=== PATIENT | female | born 1965 | race Two or more races ===

== ENCOUNTER 2020-07-25 09:03 | Outpatient (REF) | payer OTHER, SELFPAY | END 2020-07-25 09:04 | disposition home or self-care (01) | LOC: HO.LAB 09:03 | PROVIDERS: Visit Provider Internal Medicine | DX: Z20.822 Contact with and (suspected) exposure to COVID-19 (principal) | CPT/HCPCS: 36415; C9803; U0003 ==

== ENCOUNTER 2020-08-10 12:53 | Outpatient (REF) | payer OTHER, SELFPAY | END 2020-08-10 12:54 | disposition home or self-care (01) | LOC: HO.LAB 12:53 | PROVIDERS: PCP Internal Medicine; Visit Provider Internal Medicine | DX: Z20.822 Contact with and (suspected) exposure to COVID-19 (principal) | CPT/HCPCS: 36415; C9803; U0003 ==

== ENCOUNTER 2020-08-22 14:26 | Outpatient (REF) | payer OTHER, SELFPAY ==
[2020-08-25 17:07] LABS: HPV mRNA E6/E7 rflx Not Detected (Not Detected)
== END 2020-08-22 14:27 | disposition home or self-care (01) ==
LOC: HO.LAB 14:26
PROVIDERS: PCP Internal Medicine; Visit Provider Obstetrics & Gynecology
DX: Z01.419 Encounter for gynecological examination (general) (routine) without abnormal findings (principal); Z11.51 Encounter for screening for human papillomavirus (HPV)
CPT/HCPCS: 36415; 87624; 88142

== ENCOUNTER 2021-02-14 12:25 | Outpatient (REF) | payer OTHER, SELFPAY ==
--- NOTE | ~2021-02-14 | MM_ITS ---
EXAMINATION: MM SCREENING DIGITAL BREAST TOMOSYNTHESIS, BILATERAL CLINICAL INFORMATION: Screening. Asymptomatic. The lifetime risk of breast cancer based on the Tyrer-Cuzick Model is 5%. COMPARISON: Mammography: 01/14/2020, 05/05/2018, 11/13/2016 TECHNIQUE: Digital breast tomosynthesis is performed in both the craniocaudal and mediolateral oblique views along with computer-aided detection (CAD). Synthesized 2D images are generated from the tomosynthesis. Additional bilateral MLO views are provided. FINDINGS: The breasts are heterogeneously dense, which may obscure small masses (ACR BI-RADS breast composition Category c). There are no significant masses, abnormal calcifications, or other abnormalities. Parenchymal pattern is similar to prior exams. The axilla and skin contours are unremarkable. MM/MM tomosynthesis screening BI IMPRESSION: No mammographic evidence of malignancy. ASSESSMENT: BI-RADS 1: Negative RECOMMENDATION: Routine annual mammography screening. This patient's information was entered into a reminder system with a target due date for their next mammogram.
== END 2021-02-14 12:26 | disposition home or self-care (01) ==
LOC: HO.MAMMO 12:25
PROVIDERS: PCP Internal Medicine; Visit Provider Internal Medicine
DX: Z12.31 Encounter for screening mammogram for malignant neoplasm of breast (principal)
CPT/HCPCS: 77063; 77067

== ENCOUNTER → 2021-08-21 15:34 | Outpatient (REF) | payer OTHER, SELFPAY ==
--- NOTE | ~2021-08-21 | XR_ITS ---
EXAMINATION: XR CHEST CLINICAL INFORMATION: Chest pain COMPARISON: Previous chest x-ray September 2016 TECHNIQUE: Frontal view of the chest was obtained. FINDINGS: No significant abnormality is noted involving the heart, lungs, mediastinum, bony thorax or soft tissues. XR/XR chest 1V IMPRESSION: Unremarkable examination.
--- NOTE | 2021-08-21 15:49 | ECG_ITS ---
Test Reason : chest pain Blood Pressure : / mmHG Vent. Rate : 086 BPM Atrial Rate : 086 BPM P-R Int : 144 ms QRS Dur : 086 ms QT Int : 334 ms P-R-T Axes : 059 007 049 degrees QTc Int : 399 ms Normal sinus rhythm Normal ECG No previous ECGs available Referred By: Charlene Archer Electronically Signed By:KATHY ANGULO
[2021-08-21 16:00] LABS: MANUAL DIFF FLAG NO
[2021-08-21 16:09] LABS: Basophils Percent Auto 0.1 % (0-2); Eosinophils Percent Auto 0.1 % (0-4); Hematocrit 36.5 % (37.0-47.0); Hemoglobin 12.1 g/dl (12.0-16.0); Imm Gran Abs Auto 0.02 X10*3/uL (0.00-0.03); Imm Gran Pct Auto 0.2 % (0.0-0.4); Lymphocytes Absolute Auto 1.5 X10*3/uL (1.2-4.9); Lymphocytes Percent Auto 15.1 % (20-40); Mean Corpuscular HGB Conc 33.2 g/dl (31.0-35.0); Mean Corpuscular Hemoglobin 30.3 pg (27.0-33.0); Mean Corpuscular Volume 91.5 fL (80.0-98.0); Mean Platelet Volume 9.3 fL (9.4-12.3); Monocytes Absolute Auto 0.6 X10*3/uL (0.1-1.2); Monocytes Percent Auto 6.2 % (2-11); Neutrophils Absolute Auto 7.9 x10*3/uL (2.0-8.3); Neutrophils Percent Auto 78.3 % (45-73); Platelet Count 246 X10*3/uL (160-400); Red Blood Count 3.99 X10*6/uL (4.20-5.50); Red Cell Distribution Width 12.4 % (11.0-16.0); White Blood Count 10.1 X10*3/uL (4.8-10.8)
[2021-08-21 16:31] LABS: Troponin-I High Sensitivity < 3.5 ng/L (<3.5-17.0)
[2021-08-21 18:00] LABS: Alanine Aminotransferase 11 U/L (0-31); Alkaline Phosphatase 89 U/L (39-117); Anion Gap 11 (12-20); Aspartate Amino Transferase 14 U/L (5-31); Bilirubin Total 0.7 mg/dL (0.0-1.0); Blood Urea Nitrogen 12 mg/dL (9-16); Calcium 9.4 mg/dL (8.4-10.2); Carbon Dioxide 29 mmol/L (22-29); Chloride 106 mmol/L (96-108); Estimated Glomerular Filt Rate > 60; Glucose Random 91 mg/dL (60-115); Potassium 3.7 mmol/L (3.3-5.1); Sodium 142 mmol/L (135-145); Total Protein 6.9 g/dL (6.5-8.0)
== END ==
LOC: HO.CARD 15:34
PROVIDERS: PCP Internal Medicine; Visit Provider Nurse Practitioner Acute Care
DX: R07.89 Other chest pain (principal)
CPT/HCPCS: 36415; 71045; 80053; 84484; 85025; 93005

== ENCOUNTER 2022-02-21 15:47 | Outpatient (REF) | payer OTHER, SELFPAY ==
--- NOTE | ~2022-02-21 | MM_ITS ---
EXAMINATION: MM SCREENING DIGITAL BREAST TOMOSYNTHESIS, BILATERAL CLINICAL INFORMATION: Screening. Asymptomatic. The lifetime risk of breast cancer based on the Tyrer-Cuzick Model is 6%. COMPARISON: Mammography: 02/14/2021, 01/14/2020, 05/05/2018 TECHNIQUE: Digital breast tomosynthesis is performed in both the craniocaudal and mediolateral oblique views along with computer-aided detection (CAD). Synthesized 2D images are generated from the tomosynthesis. FINDINGS: The breasts are heterogeneously dense, which may obscure small masses (ACR BI-RADS breast composition Category c). There are no significant masses, abnormal calcifications, or other abnormalities. Parenchymal pattern is similar to prior studies. No developing density or interval architectural abnormality. The skin contours are smooth. MM/MM tomosynthesis screening BI IMPRESSION: No mammographic evidence of malignancy. ASSESSMENT: BI-RADS 1: Negative RECOMMENDATION: Routine annual mammography screening. This patient's information was entered into a reminder system with a target due date for their next mammogram.
== END 2022-02-21 15:48 | disposition home or self-care (01) ==
LOC: HO.MAMMO 15:47
PROVIDERS: PCP Internal Medicine; Visit Provider Internal Medicine
DX: Z12.31 Encounter for screening mammogram for malignant neoplasm of breast (principal)
CPT/HCPCS: 77063; 77067

== ENCOUNTER 2022-07-12 14:55 | Outpatient (REF) | payer OTHER, SELFPAY ==
[2022-07-14 04:36] LABS: CT PCR NOT DETECTED (Not Detect.); NG PCR NOT DETECTED (Not Detect.)
== END 2022-07-12 14:56 | disposition home or self-care (01) ==
LOC: HO.LNP 14:55
PROVIDERS: PCP Internal Medicine; Visit Provider Advanced Practice Midwife
DX: Z11.3 Encounter for screening for infections with a predominantly sexual mode of transmission (principal)
CPT/HCPCS: 87491; 87591

== ENCOUNTER 2022-10-02 09:56 | Outpatient (REF) | payer OTHER, SELFPAY ==
--- NOTE | ~2022-10-02 | XR_ITS ---
EXAMINATION: XR LUMBOSACRAL SPINE XR WRIST, RIGHT XR WRIST, LEFT CLINICAL INFORMATION: None. COMPARISON: None available. TECHNIQUE: Three views of the lumbosacral spine. 4 views each hand/wrist. FINDINGS: LUMBAR SPINE: There is normal lumbar lordosis. The vertebral heights, alignment and disc heights are normal. There is no visible acute fracture, dislocation or subluxation seen. Mild ventral spondylosis L3-L4 disc level. The paravertebral soft tissues are normal. LEFT HAND/WRIST: There is loss of PIP and DIP joint space with mild periarticular spurring in DIP joint fifth digit. Moderate periarticular spurring is seen of 1st carpometacarpal joint. No aggressive lytic or sclerotic process seen. The soft tissues are normal. There is negative ulnar variance. RIGHT HAND: There is mild loss of PIP and DIP joint space with mild periarticular spurring. No acute fracture or dislocation seen. The soft tissues are normal. XR/XR hand wrist LT IMPRESSION: Mild degenerative changes PIP and DIP joints both hands and 1st carpometacarpal joint left hand. No visible acute fracture or dislocation seen. Mild degenerative spondylosis L3-L4 disc level. No visible acute fracture or dislocation seen. There is no lytic process.
--- NOTE | ~2022-10-02 | XR_ITS ---
EXAMINATION: XR LUMBOSACRAL SPINE XR WRIST, RIGHT XR WRIST, LEFT CLINICAL INFORMATION: None. COMPARISON: None available. TECHNIQUE: Three views of the lumbosacral spine. 4 views each hand/wrist. FINDINGS: LUMBAR SPINE: There is normal lumbar lordosis. The vertebral heights, alignment and disc heights are normal. There is no visible acute fracture, dislocation or subluxation seen. Mild ventral spondylosis L3-L4 disc level. The paravertebral soft tissues are normal. LEFT HAND/WRIST: There is loss of PIP and DIP joint space with mild periarticular spurring in DIP joint fifth digit. Moderate periarticular spurring is seen of 1st carpometacarpal joint. No aggressive lytic or sclerotic process seen. The soft tissues are normal. There is negative ulnar variance. RIGHT HAND: There is mild loss of PIP and DIP joint space with mild periarticular spurring. No acute fracture or dislocation seen. The soft tissues are normal. XR/XR hand wrist RT IMPRESSION: Mild degenerative changes PIP and DIP joints both hands and 1st carpometacarpal joint left hand. No visible acute fracture or dislocation seen. Mild degenerative spondylosis L3-L4 disc level. No visible acute fracture or dislocation seen. There is no lytic process.
--- NOTE | ~2022-10-02 | XR_ITS ---
EXAMINATION: XR LUMBOSACRAL SPINE XR WRIST, RIGHT XR WRIST, LEFT CLINICAL INFORMATION: None. COMPARISON: None available. TECHNIQUE: Three views of the lumbosacral spine. 4 views each hand/wrist. FINDINGS: LUMBAR SPINE: There is normal lumbar lordosis. The vertebral heights, alignment and disc heights are normal. There is no visible acute fracture, dislocation or subluxation seen. Mild ventral spondylosis L3-L4 disc level. The paravertebral soft tissues are normal. LEFT HAND/WRIST: There is loss of PIP and DIP joint space with mild periarticular spurring in DIP joint fifth digit. Moderate periarticular spurring is seen of 1st carpometacarpal joint. No aggressive lytic or sclerotic process seen. The soft tissues are normal. There is negative ulnar variance. RIGHT HAND: There is mild loss of PIP and DIP joint space with mild periarticular spurring. No acute fracture or dislocation seen. The soft tissues are normal. XR/XR lumbar spine 2-3V IMPRESSION: Mild degenerative changes PIP and DIP joints both hands and 1st carpometacarpal joint left hand. No visible acute fracture or dislocation seen. Mild degenerative spondylosis L3-L4 disc level. No visible acute fracture or dislocation seen. There is no lytic process.
== END 2022-10-02 09:57 | disposition home or self-care (01) ==
LOC: HO.XRAY 09:56
PROVIDERS: PCP Internal Medicine; Visit Provider Internal Medicine
DX: M25.531 Pain in right wrist (principal); M25.532 Pain in left wrist; M47.816 Spondylosis without myelopathy or radiculopathy, lumbar region
CPT/HCPCS: 72100; 73110; 73130

== ENCOUNTER 2022-10-19 08:25 | Outpatient (REF) | payer OTHER, SELFPAY ==
[2022-10-19 08:34] LABS: MANUAL DIFF FLAG NO
[2022-10-19 09:15] LABS: Basophils Percent Auto 0.7 % (0-2); Eosinophils Percent Auto 0.5 % (0-4); Hematocrit 37.2 % (37.0-47.0); Hemoglobin 12.5 g/dl (12.0-16.0); Imm Gran Abs Auto 0.02 X10*3/uL (0.00-0.03); Imm Gran Pct Auto 0.3 % (0.0-0.4); Lymphocytes Absolute Auto 1.4 X10*3/uL (1.2-4.9); Lymphocytes Percent Auto 23.8 % (20-40); Mean Corpuscular HGB Conc 33.6 g/dl (31.0-35.0); Mean Corpuscular Volume 89.4 fL (80.0-98.0); Mean Platelet Volume 9.4 fL (9.4-12.3); Monocytes Absolute Auto 0.4 X10*3/uL (0.1-1.2); Monocytes Percent Auto 6.7 % (2-11); Platelet Count 259 X10*3/uL (160-400); Red Blood Count 4.16 X10*6/uL (4.20-5.50); Red Cell Distribution Width 12.5 % (11.0-16.0); White Blood Count 5.9 X10*3/uL (4.8-10.8)
[2022-10-19 09:45] LABS: Estimated Average Glucose 131 mg/dL; Hemoglobin A1c % 6.2 %
[2022-10-19 10:00] LABS: Alanine Aminotransferase 17 U/L (0-31); Alkaline Phosphatase 91 U/L (39-117); Aspartate Amino Transferase 17 U/L (5-31); Bilirubin Total 0.7 mg/dL (0.0-1.0); Blood Urea Nitrogen 16 mg/dL (9-16); Calcium 9.1 mg/dL (8.4-10.2); Carbon Dioxide 27 mmol/L (22-29); Chloride 107 mmol/L (96-108); Cholesterol 176 mg/dL; Estimated Glomerular Filt Rate > 60; Glucose Random 105 mg/dL (60-115); HDL Cholesterol 37 mg/dL; LDL Cholesterol Calculated 122 mg/dl; Potassium 4.3 mmol/L (3.3-5.1); Sodium 140 mmol/L (135-145); Total Protein 6.7 g/dL (6.5-8.0); Triglycerides 85 mg/dL
[2022-10-19 10:04] LABS: Anion Gap 11 (12-20)
[2022-10-19 10:41] LABS: Folate 7.8 ng/mL (> or = 4.0); Thyroid Stimulating Hormone 0.78 uIU/mL (0.32-4.0); Vitamin B12 952 pg/mL (200-900); Vitamin D 25-OH Total 47.4 ng/mL (>30)
== END 2022-10-19 08:26 | disposition home or self-care (01) ==
LOC: HO.LAB 08:25
PROVIDERS: PCP Internal Medicine; Visit Provider Internal Medicine
DX: E03.9 Hypothyroidism, unspecified (principal); E78.00 Pure hypercholesterolemia, unspecified; K21.9 Gastro-esophageal reflux disease without esophagitis; R73.02 Impaired glucose tolerance (oral)
CPT/HCPCS: 36415; 80053; 80061; 82306; 82607; 82746; 83036; 84439; 84443; 85025

== ENCOUNTER 2023-03-04 16:07 | Outpatient (REF) | payer OTHER, SELFPAY | END 2023-03-04 16:08 | disposition home or self-care (01) | LOC: HO.MAMMO 16:07 | PROVIDERS: Visit Provider Internal Medicine | DX: Z12.31 Encounter for screening mammogram for malignant neoplasm of breast (principal) | CPT/HCPCS: 77063; 77067 ==

== ENCOUNTER → 2023-03-04 16:15 | Outpatient (BNV) | payer OTHER, SELFPAY | PROVIDERS: Visit Provider Radiology Diagnostic Radiology | DX: Z12.31 Encounter for screening mammogram for malignant neoplasm of breast (principal) | CPT/HCPCS: 77063; 77067 ==

== ENCOUNTER 2023-04-04 09:32 | Outpatient (AMB) | payer OTHER, SELFPAY ==
[2023-04-04 09:38] VITALS: BP 118/70; PULSE 78; O2SAT 98; BMI 30.5
--- NOTE | 2023-04-04 09:38 | MHC.PC.OV ---
Vital Signs 04/04/23 09:38 Height 5 ft Weight 156 lb BMI 30.5 BP 118/70 Blood Pressure Location Lt brachial Position Sitting Pulse 78 Pulse Source Pulse Oximeter Pulse Oximetry (%) 98 Oxygen Delivery Method Room Air Intake Visit Reasons: Hypothyroidism Allergies metronidazole Allergy (Unknown, Verified 04/04/23 09:39) hand tingling Sulfa (Sulfonamide Antibiotics) Allergy (Unknown, Verified 04/04/23 09:39) hand tingling Tobacco use date assessed: 10/02/22 Dental Screening Dental Screen Date: 04/04/23 Did you have a dental visit in the last 12 months?: Yes Did you have a dental problem in the last 6 months where you did not have access to dental care?: No Was dental information given to patient?: Patient has dentist HPI Hypothyroidism HPI Details 58-year-old obese female with GERD hypothyroidism impaired glucose tolerance last seen in September 2022. Patient complained of low back pain as well as wrist pain and x-ray was done colonoscopy had a poor prep in 2014. Mammogram is up today as well as Pap smear. Review of the notes was in the Urgent Center in December 2022 with chest pains patient was advised to go to the ER. But I do not see any notes from ER. X-rays done showing mild degenerative changes in PIP and D IP both hands and mild degenerative spondylosis of the L3-L4. drinking soda still [facility] Medical History (Updated 10/02/22 @ 09:43 by Sherrie Gibson MD) Cervical cancer screening ASCUS of cervix with negative high risk HPV Contracture of finger joint Carpal tunnel syndrome of right wrist Hypothyroid Osteoarthritis Obesity (BMI 30-39.9) Thyroid nodule Vitamin D deficiency ASCUS (atypical squamous cells of undetermined significance) on gynecologic Papanicolaou smear complicating , antepartum Vitamin B12 deficiency GERD (gastroesophageal reflux disease) Asthma Anemia Surgical History History of tubal ligation History of tonsillectomy History of appendectomy Family History (Updated 04/04/23 @ 09:40 by Wendi White CMA) Father Alcohol abuse Mother Diabetes Hypertension Heart problem Brother Alive and well Brother History of open heart surgery Social History Household Members: None Housing: House Alcohol intake: never Patient Tobacco Use Status: Never used Tobacco e-Cigarette/Vaping Use: Never Used Second Hand Smoke Exposure: No service: No Current occupational status: employed Current occupation: [employer] [place] Sexual orientation: Straight/Heterosexual Gender identity: Female Cognitive needs: No Hearing needs: No Vision needs: No Female Reproductive History Menstrual Age of Menarche: 10 Questionnaire PHQ-9 Over the last 2 weeks, how often have you been bothered by any of the following problems? 1. Little interest or pleasure in doing things: not at all 2. Feeling down, depressed, or hopeless: not at all 3. Trouble falling or staying asleep, or sleeping too much: not at all 4. Feeling tired or having little energy: not at all 5. Poor appetite or overeating: not at all 6. Feeling bad about yourself - or that you are a failure or have let yourself or your family down: not at all 7. Trouble concentrating on things, such as reading the newspaper or watching television: not at all 8. Moving or speaking so slowly that other people could have noticed. Or the opposite - being so fidgety or restless that you have been moving around a lot more than usual: not at all 9. Thoughts that you would be better off or of hurting yourself in some way: not at all Total score: 0 Depression Screening Interpretation: Negative Source: Developed by Drs. Mason Guillen, Marita Buenrostro, Ryley Durand and colleagues, with an educational elian from [employer]. Thrive Questionnaire Date Thrive assessed: 10/02/22 AUDIT C Alcohol Use Questionnaire (AUDIT-C) 1. How often do you have a drink containing alcohol?: Never 3. How often do you have six or more drinks on one occasion?: Never Total Score: 0 FANTASMA-7 AMB Questionnaire FANTASMA-7 Date FANTASMA - 7 assessed: 10/02/22 Source: Developed by Drs. Mason Guillen, Marita Buenrostro, Ryley Durand and colleagues, with an educational elian from [employer]. Physical exam (Primary Care) Vital Signs: Last Vital Signs Pulse 78 04/04/23 09:38 BP 118/70 04/04/23 09:38 Pulse Ox 98 04/04/23 09:38 Oxygen Delivery Method Room Air 04/04/23 09:38 BMI result Body Mass Index 30.5 Tobacco/Smoking Status: Tobacco use Status Tobacco use date assessed 10/02/22 04/04/23 09:41 Patient Tobacco Use Status Never used Tobacco 04/04/23 09:41 e-Cigarette/Vaping Use Never Used 04/04/23 09:41 PHQ-9: PHQ-9 Score PHQ-9: Total score 0 04/04/23 09:41 Depression Screening Interpretation: Negative Thrive Assessment: Date of Thrive Assessment Date Thrive assessed 10/02/22 04/04/23 09:41 Const General: alert; No acute distress Eyes Conjunctivae: conjunctivae normal Resp Auscultation: clear to auscultation bilaterally Cardio Rate: regular rate Rhythm: regular rhythm GI Inspection: Yes normal to inspection Extrem General: Yes normal to inspection and No edema Assessment and Plan Assessment & Plan (1) GERD (gastroesophageal reflux disease): Code(s): K21.9 - Gastro-esophageal reflux disease without esophagitis Qualifiers: Esophagitis presence: without esophagitis Qualified Code(s): K21.9 - Gastro-esophageal reflux disease without esophagitis Plan: Avoid the foods that causes that usually spicy foods, tomato products, juices, coffee, soda and foods that your sensitive to. After eating do not lie down, allow 3-4 hours before in lie down. And keep the head of bed above 30 degrees to avoid the acid from going up. (2) Obesity (BMI 30-39.9): Code(s): E66.9 - Obesity, unspecified Plan: Diet and exercise (3) Osteoarthritis: Code(s): M19.90 - Unspecified osteoarthritis, unspecified site Plan: Keep active (4) Hypothyroid: Code(s): E03.9 - Hypothyroidism, unspecified Qualifiers: Hypothyroidism type: acquired Qualified Code(s): E03.9 - Hypothyroidism, unspecified Plan: Continue with thyroid medication (5) Impaired glucose tolerance: Code(s): R73.02 - Impaired glucose tolerance (oral) Plan: Decrease the amount of carbohydrate intake, pasta, bread, rice and potatoes are all sugar and that is aside from all the sweet stuff, remember that fruits are good but they are Sweet also. Hemoglobin A1c done in September 2022 reveal 6.2 (6) Colon cancer screening: Code(s): Z12.11 - Encounter for screening for malignant neoplasm of colon Plan: Patient is a med about colon cancer screen (7) DDD (degenerative disc disease), lumbar: Code(s): M51.36 - Other intervertebral disc degeneration, lumbar region Plan: Lose the weight and keep active (8) Generalized anxiety disorder: Code(s): F41.1 - Generalized anxiety disorder Plan: Stable Orders: Orders Thyroid Stimulating Hormone 3 Months R73.02 - Impaired glucose tolerance (oral) Free T4 (Free Thyroxine) 3 Months R73.02 - Impaired glucose tolerance (oral) Complete Blood Count Auto Diff 3 Months R73.02 - Impaired glucose tolerance (oral) Vitamin B12 and Folate 3 Months R73.02 - Impaired glucose tolerance (oral) Hemoglobin A1c 3 Months R73.02 - Impaired glucose tolerance (oral) Comprehensive Met. Panel 3 Months R73.02 - Impaired glucose tolerance (oral) Lipid Panel 3 Months E78.00 - Pure hypercholesterolemia, unspecified, R73.02 - Impaired glucose tolerance (oral) Coding Level of Care Code Est Pt Level 4 (83708) Diagnoses Gastroesophageal reflux disease without esophagitis K21.9 Esophagitis presence: without esophagitis Obesity (BMI 30-39.9) E66.9 Osteoarthritis M19.90 Acquired hypothyroidism E03.9 Hypothyroidism type: acquired Impaired glucose tolerance R73.02 Colon cancer screening Z12.11 DDD (degenerative disc disease), lumbar M51.36 Generalized anxiety disorder F41.1 Additional Codes PHQ-9 - 42408 - PHQ-9 Billing: ([id number])
== END 2023-04-04 10:21 | disposition home or self-care (01) ==
PROVIDERS: Visit Provider Internal Medicine
DX: K21.9 Gastro-esophageal reflux disease without esophagitis (principal); E03.9 Hypothyroidism, unspecified; E66.9 Obesity, unspecified; Z68.30 Body mass index [BMI] 30.0-30.9, adult; M19.90 Unspecified osteoarthritis, unspecified site; R73.02 Impaired glucose tolerance (oral); M51.36 Other intervertebral disc degeneration, lumbar region; F41.1 Generalized anxiety disorder
CPT/HCPCS: 99214

== ENCOUNTER 2023-05-09 08:09 | Outpatient (REF) | payer OTHER, SELFPAY ==
[2023-05-09 08:20] LABS: MANUAL DIFF FLAG NO
[2023-05-09 08:30] LABS: Basophils Percent Auto 0.5 % (0-2); Eosinophils Percent Auto 0.7 % (0-4); Hematocrit 38.4 % (37.0-47.0); Hemoglobin 12.8 g/dl (12.0-16.0); Imm Gran Abs Auto 0.01 X10*3/uL (0.00-0.03); Imm Gran Pct Auto 0.2 % (0.0-0.4); Lymphocytes Absolute Auto 1.5 X10*3/uL (1.2-4.9); Lymphocytes Percent Auto 25.8 % (20-40); Mean Corpuscular HGB Conc 33.3 g/dl (31.0-35.0); Mean Corpuscular Hemoglobin 29.9 pg (27.0-33.0); Mean Corpuscular Volume 89.7 fL (80.0-98.0); Mean Platelet Volume 9.1 fL (9.4-12.3); Monocytes Absolute Auto 0.5 X10*3/uL (0.1-1.2); Monocytes Percent Auto 8.4 % (2-11); Neutrophils Absolute Auto 3.6 x10*3/uL (2.0-8.3); Neutrophils Percent Auto 64.4 % (45-73); Platelet Count 244 X10*3/uL (160-400); Red Blood Count 4.28 X10*6/uL (4.20-5.50); Red Cell Distribution Width 12.3 % (11.0-16.0); White Blood Count 5.6 X10*3/uL (4.8-10.8)
[2023-05-09 08:38] LABS: Estimated Average Glucose 123 mg/dL; Hemoglobin A1c % 5.9 % (<6.0)
[2023-05-09 09:12] LABS: Alanine Aminotransferase 14 U/L (0-31); Albumin Level 4.1 g/dL (3.5-5.0); Alkaline Phosphatase 92 U/L (39-117); Anion Gap 13 (12-20); Aspartate Amino Transferase 16 U/L (5-31); Bilirubin Total 0.5 mg/dL (0.0-1.0); Blood Urea Nitrogen 14 mg/dL (9-16); Calcium 9.8 mg/dL (8.4-10.2); Carbon Dioxide 26 mmol/L (22-29); Chloride 104 mmol/L (96-108); Cholesterol 155 mg/dL (<200); Estimated Glomerular Filt Rate > 60; Glucose Random 119 mg/dL (60-115); HDL Cholesterol 35 mg/dL (>40); LDL Cholesterol Calculated 98 mg/dL (<100); Potassium 4.3 mmol/L (3.3-5.1); Sodium 139 mmol/L (135-145); Total Protein 7.3 g/dL (6.5-8.0); Triglycerides 111 mg/dL (<150)
[2023-05-09 09:20] LABS: Free T4 (Free Thyroxine) 1.08 ng/dL (0.71-1.85); Thyroid Stimulating Hormone 0.78 uIU/mL (0.32-4.0)
[2023-05-09 09:33] LABS: Folate 8.3 ng/mL (> or = 4.0); Vitamin B12 1325 pg/mL (200-900)
== END 2023-05-09 08:10 | disposition home or self-care (01) ==
LOC: HO.LAB 08:09
PROVIDERS: PCP Internal Medicine; Visit Provider Internal Medicine
DX: R73.02 Impaired glucose tolerance (oral) (principal); E78.00 Pure hypercholesterolemia, unspecified
CPT/HCPCS: 36415; 80053; 80061; 82607; 82746; 83036; 84439; 84443; 85025

== ENCOUNTER 2023-05-14 08:49 | Outpatient (AMB) | payer OTHER, SELFPAY ==
[2023-05-14 08:50] VITALS: BP 126/70; PULSE 60; O2SAT 99; BMI 31.2
--- NOTE | 2023-05-14 08:50 | A.OFFPC_ITS ---
Vital Signs 05/14/23 08:50 Height 5 ft Weight 160 lb BMI 31.2 BP 126/70 Blood Pressure Location Lt brachial Position Sitting Pulse 60 Pulse Source Pulse Oximeter Temp Source Skin Pulse Oximetry (%) 99 Oxygen Delivery Method Room Air Intake Visit Reasons: Annual Exam Service Delivery Analyst Required: No Allergies metronidazole Allergy (Unknown, Verified 05/14/23 08:51) hand tingling Sulfa (Sulfonamide Antibiotics) Allergy (Unknown, Verified 05/14/23 08:51) hand tingling Medication List - Last Reconciled 05/14/23 by Sherrie Gibson MD cholecalciferol (vitamin D3) 50 mcg PO DAILY 90 days cyanocobalamin (vitamin B-12) 1,000 mcg PO DAILY 90 days levothyroxine 100 mcg PO DAILY Tobacco use date assessed: 05/14/23 Dental Screening Dental Screen Date: 05/14/23 Did you have a dental visit in the last 12 months?: No Did you have a dental problem in the last 6 months where you did not have access to dental care?: No Was dental information given to patient?: Patient has dentist HPI Annual Exam HPI Details 58-year-old obese female with GERD hypot hyroidism impaired glucose tolerance lumbar degenerative disc disease in generalized anxiety disorder last seen in March 2023. Patient is here for physical exam. Colonoscopy had poor prep in 2014 and was advised colon cancer screening. Mammogram is up-to-date [facility] Medical History (Updated 05/14/23 @ 09:13 by Sherrie Gibson MD) Cervical cancer screening ASCUS of cervix with negative high risk HPV Contracture of finger joint Carpal tunnel syndrome of right wrist Hypothyroid Osteoarthritis Obesity (BMI 30-39.9) Thyroid nodule Vitamin D deficiency ASCUS (atypical squamous cells of undetermined significance) on gynecologic Papanicolaou smear complicating , antepartum Vitamin B12 deficiency GERD (gastroesophageal reflux disease) Asthma Anemia Surgical History History of tubal ligation History of tonsillectomy History of appendectomy Family History (Updated 04/04/23 @ 09:40 by Wendi White CMA) Father Alcohol abuse Mother Diabetes Hypertension Heart problem Brother Alive and well Brother History of open heart surgery Social History (Reviewed 07/12/22 @ 15:34 by MARVIN Lin Household Members: None Housing: House Alcohol intake: never Patient Tobacco Use Status: Never used Tobacco e-Cigarette/Vaping Use: Never Used Second Hand Smoke Exposure: No service: No Current occupational status: employed Current occupation: [employer] [place] Sexual orientation: Straight/Heterosexual Gender identity: Female Cognitive needs: No Hearing needs: No Vision needs: No Female Reproductive History Menstrual Age of Menarche: 10 Questionnaire PHQ-9 Over the last 2 weeks, how often have you been bothered by any of the following problems? 1. Little interest or pleasure in doing things: not at all 2. Feeling down, depressed, or hopeless: not at all 3. Trouble falling or staying asleep, or sleeping too much: not at all 4. Feeling tired or having little energy: not at all 5. Poor appetite or overeating: not at all 6. Feeling bad about yourself - or that you are a failure or have let yourself or your family down: not at all 7. Trouble concentrating on things, such as reading the newspaper or watching television: not at all 8. Moving or speaking so slowly that other people could have noticed. Or the opposite - being so fidgety or restless that you have been moving around a lot more than usual: not at all 9. Thoughts that you would be better off or of hurting yourself in some way: not at all Total score: 0 Depression Screening Interpretation: Negative Depression Screening Done: Yes Source: Developed by Drs. Mason Guillen, Marita Buenrostro, Ryley Durand and colleagues, with an educational elian from [employer]. Thrive Questionnaire Date Thrive assessed: 10/02/22 AUDIT C Alcohol Use Questionnaire (AUDIT-C) 1. How often do you have a drink containing alcohol?: Never 3. How often do you have six or more drinks on one occasion?: Never Total Score: 0 FANTASMA-7 AMB Questionnaire FANTASMA-7 Date FANTASMA - 7 assessed: 05/14/23 Feeling nervous, anxious, or on edge: 0 = Not at all Not being able to stop or control worryin = Not at all Worrying too much about different things: 0 = Not at all Trouble relaxin = Not at all Being so restless that it is hard to sit still: 0 = Not at all Becoming easily annoyed or irritable: 0 = Not at all Feeling afraid as if something awful might happen: 0 = Not at all Total FANTASMA-7 score (0-4 normal; 5-9 mild; 10-14 moderate; 15-21 severe): 0 Source: Developed by Drs. Mason Guillen, Marita Buenrostro, Ryley Durand and colleagues, with an educational elian from [employer]. Review of Systems Const Denies poor appetite and Denies weakness Eyes Denies no additional complaints ENT Reports Normal hearing present, Denies dizziness, Denies nasal congestion, Denies tinnitus and Denies sore throat Card Denies chest pain, Denies syncope, Denies rapid heart rate and Denies dyspnea Resp Denies cough and Denies dyspnea GI Denies change in stool character, Reports constipation, Denies diarrhea, Denies nausea and Denies vomiting Denies urinary frequency, Denies difficulty voiding and Denies dysuria Neuro Reports Normal hearing present, Denies confusion, Denies dizziness, Denies syncope and Denies weakness Psych Denies confusion Physical exam (Primary Care) Vital Signs: Last Vital Signs Pulse 60 05/14/23 08:50 BP 126/70 05/14/23 08:50 Pulse Ox 99 05/14/23 08:50 Oxygen Delivery Method Room Air 05/14/23 08:50 BMI result Body Mass Index 31.2 Tobacco/Smoking Status: Tobacco use Status Tobacco use date assessed 05/14/23 05/14/23 08:52 Patient Tobacco Use Status Never used Tobacco 05/14/23 08:52 e-Cigarette/Vaping Use Never Used 05/14/23 08:52 PHQ-9: PHQ-9 Score PHQ-9: Total score 0 05/14/23 09:05 Depression Screening Interpretation: Negative Thrive Assessment: Date of Thrive Assessment Date Thrive assessed 10/02/22 05/14/23 08:52 Const General: No confusion Orientation/consciousness: No confusion HENMT Head: Yes normocephalic Ears: external ears normal and TM's normal bilaterally Face and sinus: Yes normal facial exam Mouth: moist mucous membranes Throat: Yes tonsils normal Eyes Conjunctivae: conjunctivae normal Pupils: Equal, round and reactive pupils present and Pupil accommodation reflex normal Direct Ophthalmoscopy: normal light reflex Neck Neck: No lymphadenopathy Thyroid: Thyroid normal Chest Chest palpation & inspection: normal inspection of the chest Resp Effort & Inspection: normal respiratory effort and no audible wheezes Auscultation: clear to auscultation bilaterally, no crackles, no wheezes and lung sounds not diminished Cardio Rate: regular rate Rhythm: regular rhythm Peripheral pulses: radial pulses present and dorsalis pedis present GI Palpation (GI): no masses Auscultation: normal bowel sounds and normoactive bowel sounds Rectal Exam - Female: deferred Skin General skin exam: no rashes or lesions noted Rashes: no rashes Neuro General: No confusion Cranial nerves: Yes Equal, round and reactive pupils present and Yes Normal hearing present Cognition (Neuro): normal cognition Gait exam (Neuro): Normal gait present Motor exam (neuro): 5/5 motor strength present throughout Deep tendon reflexes (DTR's): Right brachioradialis reflex intensity grade: 2+, Left brachioradialis reflex intensity grade: 2+, Right patellar reflex intensity grade: 2+ and Left patellar reflex intensity grade: 2+ Extrem General: No edema Assessment and Plan Assessment & Plan (1) Annual physical exam: Code(s): Z00.00 - Encounter for general adult medical examination without abnormal findings (2) Impaired glucose tolerance: Code(s): R73.02 - Impaired glucose tolerance (oral) Plan: Decrease the amount of carbohydrate intake, pasta, bread, rice and potatoes are all sugar and that is aside from all the sweet stuff, remember that fruits are good but they are Sweet also. (3) Obesity (BMI 30-39.9): Code(s): E66.9 - Obesity, unspecified Plan: Diet and exercise (4) GERD (gastroesophageal reflux disease): Code(s): K21.9 - Gastro-esophageal reflux disease without esophagitis Qualifiers: Esophagitis presence: without esophagitis Qualified Code(s): K21.9 - Gastro-esophageal reflux disease without esophagitis Plan: Avoid the foods that causes that usually spicy foods, tomato products, juices, coffee, soda and foods that your sensitive to. After eating do not lie down, allow 3-4 hours before in lie down. And keep the head of bed above 30 degrees to avoid the acid from going up. (5) Hypothyroid: Code(s): E03.9 - Hypothyroidism, unspecified Qualifiers: Hypothyroidism type: acquired Qualified Code(s): E03.9 - Hypothyroidism, unspecified Plan: Continue with the thyroid medication (6) Generalized anxiety disorder: Code(s): F41.1 - Generalized anxiety disorder Plan: Stable (7) GERD (gastroesophageal reflux disease): Code(s): K21.9 - Gastro-esophageal reflux disease without esophagitis (8) Knee pain, bilateral: Code(s): M25.561 - Pain in right knee; M25.562 - Pain in left knee Orders: Orders XR knee standing BI Today M25.561 - Pain in right knee, M25.562 - Pain in left knee FL upper GI series Today K21.9 - Gastro-esophageal reflux disease without esophagitis, R13.10 - Dysphagia, unspecified Medications: New meloxicam 7.5 mg PO DAILY 30 tabs 1RF M25.561 - Pain in right knee, M25.562 - Pain in left knee Coding Level of Care Code Est Pt Prev Care 40-64y(40070) Diagnoses Annual physical exam Z00.00 Impaired glucose tolerance R73.02 Obesity (BMI 30-39.9) E66.9 Gastroesophageal reflux disease without esophagitis K21.9 Esophagitis presence: without esophagitis Acquired hypothyroidism E03.9 Hypothyroidism type: acquired Generalized anxiety disorder F41.1 Knee pain, bilateral M25.561; M25.562 Additional Codes PHQ-9 - 84237 - PHQ-9 Billing: ([id number])
== END 2023-05-14 09:30 | disposition home or self-care (01) ==
PROVIDERS: Visit Provider Internal Medicine
DX: Z00.00 Encounter for general adult medical examination without abnormal findings (principal); R73.02 Impaired glucose tolerance (oral); E66.9 Obesity, unspecified; Z68.31 Body mass index [BMI] 31.0-31.9, adult; E03.9 Hypothyroidism, unspecified; F41.1 Generalized anxiety disorder; M25.561 Pain in right knee; M25.562 Pain in left knee
CPT/HCPCS: 99396

== ENCOUNTER 2023-05-14 09:43 | Outpatient (REF) | payer OTHER, SELFPAY ==
--- NOTE | ~2023-05-14 | XR_ITS ---
EXAMINATION: XR KNEE, BILATERAL CLINICAL INFORMATION: Right knee pain. COMPARISON: None available. TECHNIQUE: AP bilateral standing view of the knees was obtained. FINDINGS: Bilateral mild medial joint space narrowing with small marginal osteophytes. XR/XR knee standing BI IMPRESSION: Mild degenerative changes in bilateral knees.
== END 2023-05-14 09:44 | disposition home or self-care (01) ==
LOC: HO.XRAY 09:43
PROVIDERS: PCP Internal Medicine; Visit Provider Internal Medicine
DX: M25.561 Pain in right knee (principal); M25.562 Pain in left knee
CPT/HCPCS: 73565

== ENCOUNTER 2023-10-17 13:52 | Outpatient (AMB) | payer OTHER, SELFPAY ==
--- NOTE | 2023-10-17 13:58 | A.OFFVIS_ITS ---
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 Respiratory Therapy Instructor Required: No Information Interpreted: non-clinical & clinical Leather Toggler: Leather Toggler Present (Maricarmen) Allergies metronidazole Allergy (Unknown, Verified 10/17/23 13:59) hand tingling Sulfa (Sulfonamide Antibiotics) Allergy (Unknown, Verified 10/17/23 13:59) hand tingling Medication List - Last Reconciled 10/17/23 by Amairani Jaime CNM cholecalciferol (vitamin D3) 50 mcg PO DAILY 90 days cyanocobalamin (vitamin B-12) 1,000 mcg PO DAILY 90 days levothyroxine 100 mcg PO DAILY meloxicam 7.5 mg PO DAILY Is last menstrual period known: No Post menopausal: Yes Patient : No HPI 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 Gibson and is awaiting some referrals. She had another appointment with dermatology for eczema this morning. Her last period was over 10 years ago. She has grown children and grown grand children. She has not worried about anything in particular but she did request full STI testing just to be sure. She says she is up-to-date on her mammograms. [facility] Medical History (Updated 10/17/23 @ 14:58 by Amaiarni Jaime CNM) Cervical cancer screening ASCUS of cervix with negative high risk HPV Contracture of finger joint Carpal tunnel syndrome of right wrist Hypothyroid Osteoarthritis Obesity (BMI 30-39.9) Thyroid nodule Vitamin D deficiency ASCUS (atypical squamous cells of undetermined significance) on gynecologic Papanicolaou smear complicating , antepartum Vitamin B12 deficiency GERD (gastroesophageal reflux disease) Asthma Anemia Surgical History History of tubal ligation History of tonsillectomy History of appendectomy Family History Father Alcohol abuse Mother Diabetes Hypertension Heart problem Brother Alive and well Brother History of open heart surgery Social History Household Members: None Housing: House Alcohol intake: never Patient Tobacco Use Status: Never used Tobacco e-Cigarette/Vaping Use: Never Used Second Hand Smoke Exposure: No service: No Current occupational status: employed Current occupation: [employer] Sexual orientation: Straight/Heterosexual Gender identity: Female Cognitive needs: No Hearing needs: No Vision needs: No Female Reproductive History Menstrual Age of Menarche: 10 control method: none Total pregnancies: 6 Full term: 4 Number of Living Children: 4 Date of last pap smear: 08/23/20 (negative) History of abnormal pap smear: Yes (2016 2014 ASCUS) Date of Mammogram: 03/04/23 Physical Exam Vital Signs: Last Vital Signs BP 114/64 10/17/23 13:59 BMI result Body Mass Index 33.6 Results Reviewed Results Reviewed: me: Megha Dixon Age/Sex: 55/F Attending: Kendrick Mcgraw MD : 1965 Submitted by: Kendrick Mcgraw MD Copies to: MR #: [id number] Status: DEP REF Collected: 08/22/20 Location: .LAB Received: 08/23/20 Interpretation Satisfactory for evaluation. Negative for intraepithelial lesion or malignancy. Coccobacilli consistent with shift in vaginal leonardo. HPV mRNA E6/E7: NOT DETECTED This assay detects E6/E7 viral messenger RNA (mRNA) from 14 high-risk HPV types (16, 18, 31, 33, 35, 39, 45, 51, 52, 56, 58, 59, 66, 68) HPV testing performed by [facility], [place], [place]. See reference laboratory portion of the EMR for entire report. Clinical Information LMP: Unknown Date Previous PAP test: Unknown Date/Findings Material Received ThinPrep Cervical Electronically Signed By: Lynette Rosado 08/29/20 1316 The Pap Test is a screening procedure with the inherent possibility of both false negative and false positive results. Results should be interpreted in the context of historic and current clinical findings. Reliability of the Pap Test is enhanced by performing the test on a regular repetitive basis. Patient: Megha Dixon Age/Sex: 55/F MR#: [id number] Page 1 of 1 Assessment & Plan Assessment & Plan (1) Women's annual routine gynecological examination: Code(s): Z01.419 - Encounter for gynecological examination (general) (routine) without abnormal findings (2) ASCUS of cervix with negative high risk HPV: Comment: 2014 and 2016 2019 Neg Co test Code(s): R87.610 - Atypical squamous cells of undetermined significance on cytologic smear of cervix (ASC-US) (3) Encounter for screening examination for sexually transmitted disease: Code(s): Z11.3 - Encounter for screening for infections with a predominantly sexual mode of transmission Plan Patient is here for marketing outreach coordinator annual 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 Gibson and is awaiting some referrals. She had another appointment with dermatology for eczema this morning. Her last period was over 10 years ago. She has grown children and grown grand children. She has not worried about anything in particular but she did request full STI testing just to be sure. She says she is up-to-date on her mammograms. -----Discussed in this visit the following: healthy balanced diet, regular and consistent exercise, getting recommended health screens, doing the best she can for her particular health concerns, kegel exercises, pap smear screening and followup recommendations, mammography screening and SBE, normal changes in cycles in her life stage--- . Pap smear was done as it was due and full testing for gonorrhea chlamydia trichomoniasis Gardnerella and Rita and testing offered an ordered for HIV hep B hep C and syphilis. Patient thought she was on the portal but had trouble getting on so she is going to check with the desk clerks supervisor about any advice about getting into the system. There was asking her for her medical record number. RTC 1 year. Orders: Orders Hepatitis B Surface Antigen Today Z11.3 - Encounter for screening for infections with a predominantly sexual mode of transmission Hepatitis C Antibody Today Z11.3 - Encounter for screening for infections with a predominantly sexual mode of transmission HIV Ab/Ag Today Z11.3 - Encounter for screening for infections with a predominantly sexual mode of transmission Syphilis Screen Today Z11.3 - Encounter for screening for infections with a predominantly sexual mode of transmission CT NG by PCR Today Z11.3 - Encounter for screening for infections with a p redominantly sexual mode of transmission Bacterial Vaginosis Panel Today Z11.3 - Encounter for screening for infections with a predominantly sexual mode of transmission Pap Smear Today R87.610 - Atypical squamous cells of undetermined significance on cytologic smear of cervix (ASC-US), Z12.4 - Encounter for screening for malignant neoplasm of cervix Coding Level of Care Code Est Pt Prev Care 40-64y(70758) Diagnoses Women's annual routine gynecological examination Z01.419 ASCUS of cervix with negative high risk HPV R87.610 Encounter for screening examination for sexually transmitted disease Z11.3
[2023-10-17 13:59] VITALS: BP 114/64; BMI 33.6
== END 2023-10-17 15:00 | disposition home or self-care (01) ==
PROVIDERS: PCP Internal Medicine; Visit Provider Advanced Practice Midwife
DX: Z01.419 Encounter for gynecological examination (general) (routine) without abnormal findings (principal); R87.610 Atypical squamous cells of undetermined significance on cytologic smear of cervix (ASC-US); Z11.3 Encounter for screening for infections with a predominantly sexual mode of transmission
CPT/HCPCS: 99396

== ENCOUNTER 2023-10-17 13:52 | Outpatient (REF) | payer OTHER, SELFPAY ==
[2023-10-18 05:28] LABS: CT PCR NOT DETECTED (Not Detect.); NG PCR NOT DETECTED (Not Detect.)
[2023-10-18 08:52] LABS: BV Int Neg Control Negative (Negative); BV Int Pos Control Positive (Positive)
[2023-10-24 06:04] LABS: HPV 16 RNA NOT DETECTED (NOT DETECTED); HPV mRNA E6/E7 rflx Detected (Not Detected)
== END 2023-10-17 13:53 | disposition home or self-care (01) ==
LOC: HO.LNP 13:52
PROVIDERS: PCP Internal Medicine; Visit Provider Advanced Practice Midwife
DX: Z01.419 Encounter for gynecological examination (general) (routine) without abnormal findings (principal); Z11.51 Encounter for screening for human papillomavirus (HPV); R87.610 Atypical squamous cells of undetermined significance on cytologic smear of cervix (ASC-US)
CPT/HCPCS: 0353U; 87480; 87510; 87624; 87625; 87660; 88142; 99396

== ENCOUNTER 2023-10-17 15:16 | Outpatient (REF) | payer OTHER, SELFPAY ==
[2023-10-18 04:02] LABS: Syphilis Screen Nonreactive (Nonreactive)
[2023-10-18 04:08] LABS: HBsAGNum1 0.34 S/CO (0.00-0.99); HIV AB/AG Nonreactive (Nonreactive); HIV Num 1 0.05 S/CO (0.00-0.99); Hepatitis B Surface Antigen Negative (Negative); ~Hepatitis C Antibody Nonreactive (Nonreactive)
== END 2023-10-17 15:17 | disposition home or self-care (01) ==
LOC: HO.HHCL 15:16
PROVIDERS: Visit Provider Advanced Practice Midwife
DX: Z11.4 Encounter for screening for human immunodeficiency virus [HIV] (principal); Z11.3 Encounter for screening for infections with a predominantly sexual mode of transmission
CPT/HCPCS: 36415; 86780; 86803; 87340; 87389

== ENCOUNTER 2023-11-22 11:58 | Outpatient (AMB) | payer OTHER, SELFPAY ==
[2023-11-22 12:25] VITALS: BP 112/70; PULSE 70; TEMP 36.5; O2SAT 96; BMI 31.8
--- NOTE | 2023-11-22 12:25 | AM.OFFWIN_ITS ---
Intake Vital Signs 11/22/23 12:25 Height 5 ft Weight 163 lb BMI 31.8 BP 112/70 Blood Pressure Location Lt brachial Position Sitting Pulse 70 Pulse Source Pulse Oximeter Temp 97.7 F Temp Source Temporal Artery Scan Pulse Oximetry (%) 96 Oxygen Delivery Method Room Air Intake Visit Reasons: EP Lower back pain no stool in 4 days Intake Note: pt is here today for lower back pain no stool in 4 days 1 weeks ago Patient Tobacco Use Status: Never used Tobacco Allergies metronidazole Allergy (Unknown, Verified 11/22/23 12:32) hand tingling Sulfa (Sulfonamide Antibiotics) Allergy (Unknown, Verified 11/22/23 12:32) hand tingling Do you need a note to return to daycare/school/sports/work: Yes HPI HPI Comments History of Present Illness Details 58 y/o female patient who presents to [facility] in clinic with c/o low midline back pain x 2 days. Pt also c/o constipation, has not had a BM for 4 days. Reports using OTC medications; Colace and Dulcolax Supp with no relief. [facility] Medical History (Updated 10/30/23 @ 17:08 by Amairani Jaime CNM) Cervical cancer screening ASCUS of cervix with negative high risk HPV Contracture of finger joint Carpal tunnel syndrome of right wrist Hypothyroid Osteoarthritis Obesity (BMI 30-39.9) Thyroid nodule Vitamin D deficiency ASCUS (atypical squamous cells of undetermined significance) on gynecologic Papanicolaou smear complicating , antepartum Vitamin B12 deficiency GERD (gastroesophageal reflux disease) Asthma Anemia Surgical History History of tubal ligation History of tonsillectomy History of appendectomy Family History Father Alcohol abuse Mother Diabetes Hypertension Heart problem Brother Alive and well Brother History of open heart surgery Social History Household Members: None Housing: House Alcohol intake: never Patient Tobacco Use Status: Never used Tobacco e-Cigarette/Vaping Use: Never Used Second Hand Smoke Exposure: No service: No Current occupational status: employed Current occupation: [employer] Sexual orientation: Straight/Heterosexual Gender identity: Female Cognitive needs: No Hearing needs: No Vision needs: No Female Reproductive History Menstrual Age of Menarche: 10 Review of Systems Const All systems reviewed & are unremarkable except as noted in HPI and below Physical Exam Vital Signs: Last Vital Signs Temp 97.7 F 11/22/23 12:25 Pulse 70 11/22/23 12:25 BP 112/70 11/22/23 12:25 Pulse Ox 96 11/22/23 12:25 Oxygen Delivery Method Room Air 11/22/23 12:25 BMI result Body Mass Index 31.8 Const General: no acute distress; No comfortable Nutritional Appearance: overweight Orientation/consciousness: patient oriented x3 GI Inspection: Yes normal to inspection and No distended Palpation (GI): Soft to palpation, not firm, Tenderness to palpation present (GI) suprapubicly, no guarding, Rigid due to palpation, No hepatosplenomegaly present, no hernias and no masses Rectal Exam - Female: deferred Neuro General: patient oriented x3, gait normal and moves all extremities Psych Speech and movement: Normal speech and movement present Results AMB Urinalysis, Automated UA Leukoctes 0 Doc/uL Last Edit by Becky Brown MA on 11/22/23 12:56 UA Nitrite Negative Last Edit by Becky Brown MA on 11/22/23 12:56 UA Urobilinogen 0.2 mg/dL Last Edit by Becky Brown MA on 11/22/23 12:56 UA Protein 0 mg/dL Last Edit by Becky Brown MA on 11/22/23 12:56 UA pH 7.0 Last Edit by Becky Brown MA on 11/22/23 12:56 UA Blood 80 Juan/uL Last Edit by Becky Brown MA on 11/22/23 12:56 UA Specific [place] 1.010 Last Edit by Becky Brown MA on 11/22/23 12:56 UA Ketone Negative Last Edit by Becky Brown MA on 11/22/23 12:56 UA Bilirubin 0 mg/dL Last Edit by Becky Brown MA on 11/22/23 12:56 UA Glucose 0 mg/dL Last Edit by Becky Brown MA on 11/22/23 12:56 Assessment & Plan Assessment & Plan (1) Constipation: Code(s): K59.00 - Constipation, unspecified Qualifiers: Constipation type: slow transit constipation Qualified Code(s): K59.01 - Slow transit constipation Plan: - Increase fiber intake - Increase water intake - Fruits and green veggies - Active lifestyle. Medications: New polyethylene glycol 3350 (Miralax) 17 grams PO BID 30 ea 0RF constipation K59.01 - Slow transit constipation bisacodyl 10 mg (2 x 5 mg) PO DAILY PRN 30 tabs 0RF constipation K59.01 - Slow transit constipation Coding Level of Care Code Est Pt Level 3 (89137) Diagnoses Slow transit constipation K59.01 Constipation type: slow transit constipation Time Spent (min) 15
== END 2023-11-22 13:45 | disposition home or self-care (01) ==
PROVIDERS: PCP Internal Medicine; Visit Provider Nurse Practitioner Family
DX: K59.01 Slow transit constipation (principal)
CPT/HCPCS: 99213

== ENCOUNTER 2023-11-27 08:28 | Outpatient (AMB) | payer OTHER, SELFPAY ==
[2023-11-27 08:37] VITALS: BP 122/80; PULSE 75; O2SAT 98; BMI 31.8
--- NOTE | 2023-11-27 08:37 | MHC.PC.OV ---
Vital Signs 11/27/23 08:37 Height 5 ft Weight 163 lb BMI 31.8 BP 122/80 Blood Pressure Location Lt brachial Position Sitting Pulse 75 Pulse Source Pulse Oximeter Pulse Oximetry (%) 98 Oxygen Delivery Method Room Air Intake Visit Reasons: Back pain, wrist pain, left leg pain Allergies metronidazole Allergy (Unknown, Verified 11/27/23 08:38) hand tingling Sulfa (Sulfonamide Antibiotics) Allergy (Unknown, Verified 11/27/23 08:38) hand tingling Tobacco use date assessed: 11/27/23 Dental Screening Dental Screen Date: 11/27/23 Did you have a dental visit in the last 12 months?: Yes Did you have a dental problem in the last 6 months where you did not have access to dental care?: No Was dental information given to patient?: Patient has dentist HPI Back pain, wrist pain, left leg pain HPI Details 58-year-old obese female with impaired glucose tolerance GERD hypothyroidism generalized anxiety disorder GERD coming in for follow-up. Last seen in April 2023. Patient's colonoscopy had a poor prep in 2014, mammogram is up-to-date Pap smear is up-to-date. Noted recent urgent visit November 21 for constipation placed on MiraLax. Patient has complained of knee pain and an x-ray was done showing degenerative changes in both knees. [facility], [facility] Medical History (Updated 11/27/23 @ 09:04 by Sherrie Gibson MD) Colon cancer screening Knee pain, bilateral Women's annual routine gynecological examination Encounter for screening examination for sexually transmitted disease Cervical cancer screening ASCUS of cervix with negative high risk HPV Contracture of finger joint Carpal tunnel syndrome of right wrist Hypothyroid Osteoarthritis Obesity (BMI 30-39.9) Thyroid nodule Vitamin D deficiency ASCUS (atypical squamous cells of undetermined significance) on gynecologic Papanicolaou smear complicating , antepartum Vitamin B12 deficiency GERD (gastroesophageal reflux disease) Asthma Anemia Surgical History History of tubal ligation History of tonsillectomy History of appendectomy Family History Father Alcohol abuse Mother Diabetes Hypertension Heart problem Brother Alive and well Brother History of open heart surgery Social History (Reviewed 10/17/23 @ 14:00 by LUCA Franco Household Members: None Housing: House Alcohol intake: never Patient Tobacco Use Status: Never used Tobacco e-Cigarette/Vaping Use: Never Used Second Hand Smoke Exposure: No service: No Current occupational status: employed Current occupation: [employer] Sexual orientation: Straight/Heterosexual Gender identity: Female Cognitive needs: No Hearing needs: No Vision needs: No Female Reproductive History Menstrual Age of Menarche: 10 Questionnaire PHQ-9 Over the last 2 weeks, how often have you been bothered by any of the following problems? 1. Little interest or pleasure in doing things: not at all 2. Feeling down, depressed, or hopeless: not at all 3. Trouble falling or staying asleep, or sleeping too much: not at all 4. Feeling tired or having little energy: not at all 5. Poor appetite or overeating: not at all 6. Feeling bad about yourself - or that you are a failure or have let yourself or your family down: not at all 7. Trouble concentrating on things, such as reading the newspaper or watching television: not at all 8. Moving or speaking so slowly that other people could have noticed. Or the opposite - being so fidgety or restless that you have been moving around a lot more than usual: not at all 9. Thoughts that you would be better off or of hurting yourself in some way: not at all Total score: 0 Depression Screening Interpretation: Negative Depression Screening Done: Yes Source: Developed by Drs. Mason Guillen, Marita Buenrostro, Ryley Durand and colleagues, with an educational elian from [employer]. Thrive Questionnaire Date Thrive assessed: 11/27/23 I am a: Patient What is your living situation today?: I have a steady place to live Within the past 12 months, did the food you bought not last and you didn't have the money to get more?: Never true Within the past 12 months, did you worry whether your food would run out before you got money to buy more?: Never true Do you have trouble paying for medicines?: No Do you have trouble getting transportation to medical appointments?: No Do you have trouble paying your heating and electricity bill?: No Do you have trouble taking care of your child, family member or friend?: No Do you have trouble with day-to-day activities such as bathing, preparing meals, shopping, managing finances, etc.?: No Are you currently unemployed and looking for a job?: No Are you interested in more education?: No Currently or been in a relationship where the following occur: no concerns reported THRIVE Score: 0 AUDIT C Alcohol Use Questionnaire (AUDIT-C) 1. How often do you have a drink containing alcohol?: Monthly or less 2. How many drinks containing alcohol do you have on a typical day when you are drinking?: 1 or 2 3. How often do you have six or more drinks on one occasion?: Never Total Score: 1 FANTASMA-7 AMB Questionnaire FANTASMA-7 Date FANTASMA - 7 assessed: 11/27/23 Feeling nervous, anxious, or on edge: 0 = Not at all Not being able to stop or control worryin = Not at all Worrying too much about different things: 0 = Not at all Trouble relaxin = Not at all Being so restless that it is hard to sit still: 0 = Not at all Becoming easily annoyed or irritable: 0 = Not at all Feeling afraid as if something awful might happen: 0 = Not at all Total FANTASMA-7 score (0-4 normal; 5-9 mild; 10-14 moderate; 15-21 severe): 0 Source: Developed by Drs. Mason Guillen, Marita Buenrostro, Ryley Durand and colleagues, with an educational elian from [employer]. Physical exam (Primary Care) Vital Signs: Last Vital Signs Pulse 75 11/27/23 08:37 BP 122/80 11/27/23 08:37 Pulse Ox 98 11/27/23 08:37 Oxygen Delivery Method Room Air 11/27/23 08:37 BMI result Body Mass Index 31.8 Tobacco/Smoking Status: Tobacco use Status Tobacco use date assessed 11/27/23 11/27/23 08:46 Patient Tobacco Use Status Never used Tobacco 11/27/23 08:46 e-Cigarette/Vaping Use Never Used 11/27/23 08:46 PHQ-9: PHQ-9 Score PHQ-9: Total score 0 11/27/23 08:46 Depression Screening Interpretation: Negative Thrive Assessment: Date of Thrive Assessment Date Thrive assessed 11/27/23 11/27/23 08:46 Currently or been in a relationship where the following occur: no concerns reported Const General: alert; No acute distress Eyes Conjunctivae: conjunctivae normal Resp Auscultation: clear to auscultation bilaterally Cardio Rate: regular rate Rhythm: regular rhythm GI Inspection: Yes normal to inspection Extrem General: Yes normal to inspection and No edema Assessment and Plan Assessment & Plan (1) Constipation: Code(s): K59.00 - Constipation, unspecified Plan: Three rules for constipation 1. Diet need to have a high fiber diet less of meat 2. Increase oral fluids 3. Exercise patient has been placed on MiraLax (2) Colon cancer screening: Code(s): Z12.11 - Encounter for screening for malignant neoplasm of colon Plan: Patient is reminded about colonoscopy (3) Knee pain, left: Code(s): M25.562 - Pain in left knee Plan: will send for PT and referred to orthopedics (4) Low back pain: Code(s): M54.50 - Low back pain, unspecified Plan: physical therapy requested (5) Wrist pain, right: Code(s): M25.531 - Pain in right wrist Plan: occupational therapy requested and OT Orders: Orders Free T4 (Free Thyroxine) Today E03.9 - Hypothyroidism, unspecified PT Evaluation and Treatment Today M25.562 - Pain in left knee, M54.50 - Low back pain, unspecified OT Evaluation and Treatment Today M25.531 - Pain in right wrist Hemoglobin A1c Today E03.9 - Hypothyroidism, unspecified Comprehensive Met. Panel Today E03.9 - Hypothyroidism, unspecified Thyroid Stimulating Hormone Today E03.9 - Hypothyroidism, unspecified Referrals Orthopedics Referral M25.531 - Pain in right wrist, M25.562 - Pain in left knee Medications: Refilled levothyroxine 100 mcg PO DAILY 90 tabs 1RF E03.9 - Hypothyroidism, unspecified Coding Level of Care Code Est Pt Level 4 (58616) Diagnoses Constipation K59.00 Colon cancer screening Z12.11 Knee pain, left M25.562 Low back pain M54.50 Wrist pain, right M25.531 Additional Codes PHQ-9 - 91837 - PHQ-9 Billing: ([id number])
== END 2023-11-27 09:17 | disposition home or self-care (01) ==
PROVIDERS: PCP Internal Medicine; Visit Provider Internal Medicine
DX: K59.00 Constipation, unspecified (principal); Z12.11 Encounter for screening for malignant neoplasm of colon; M25.562 Pain in left knee; M54.50 Low back pain, unspecified; M25.531 Pain in right wrist
CPT/HCPCS: 99214

== ENCOUNTER 2023-11-27 09:22 | Outpatient (REF) | payer OTHER, SELFPAY ==
[2023-11-27 10:15] LABS: Estimated Average Glucose 131 mg/dL; Hemoglobin A1c % 6.2 % (<6.0)
[2023-11-27 10:46] LABS: Alanine Aminotransferase 20 U/L (0-31); Albumin Level 4.1 g/dL (3.5-5.0); Alkaline Phosphatase 83 U/L (39-117); Anion Gap 11 (12-20); Aspartate Amino Transferase 17 U/L (5-31); Bilirubin Total 0.4 mg/dL (0.0-1.0); Blood Urea Nitrogen 13 mg/dL (9-16); Calcium 9.7 mg/dL (8.4-10.2); Carbon Dioxide 28 mmol/L (22-29); Chloride 107 mmol/L (96-108); Estimated Glomerular Filt Rate > 60; Glucose Random 105 mg/dL (60-115); Sodium 142 mmol/L (135-145); Total Protein 7.1 g/dL (6.5-8.0)
[2023-11-27 10:53] LABS: Thyroid Stimulating Hormone 0.84 uIU/mL (0.32-4.0)
== END 2023-11-27 09:23 | disposition home or self-care (01) ==
LOC: HO.LAB 09:22
PROVIDERS: PCP Internal Medicine; Visit Provider Internal Medicine
DX: E03.9 Hypothyroidism, unspecified (principal)
CPT/HCPCS: 36415; 80053; 83036; 84439; 84443

== ENCOUNTER 2023-12-02 08:55 | Outpatient (REF) | payer OTHER, SELFPAY ==
--- NOTE | ~2023-12-02 | XR_ITS ---
EXAMINATION: XR KNEE, LEFT CLINICAL INFORMATION: Pain in unspecified knee. COMPARISON: 05/14/2023 AP standing view bilateral knees. TECHNIQUE: Lateral and sunrise views only of the left knee. FINDINGS: No significant joint effusion. Tiny anterior superior patellar spur. Mild degenerative changes in the patellofemoral compartment. XR/XR knee LT 2V IMPRESSION: Mild degenerative changes in the patellofemoral compartment.
== END 2023-12-02 08:56 | disposition home or self-care (01) ==
LOC: HO.HOSX 08:55
PROVIDERS: Visit Provider Physician Assistant
DX: M17.12 Unilateral primary osteoarthritis, left knee (principal)
CPT/HCPCS: 20610; 73560; 99202; J1010

== ENCOUNTER 2023-12-02 13:56 | Outpatient (AMB) | payer OTHER, SELFPAY ==
--- NOTE | 2023-12-02 14:05 | A.OFFVIS_ITS ---
Intake Visit Reasons: New Pt - left knee pain Intake Note: Megha is a 58 year old female who presents today as a new patient for a evaluation of her left knee pain. Patient reports her pain started about 2 weeks ago and her pain is getting worse. She expresses her pain is all over the knee and it stays in the area. Pain is worse when walking, standing and sleeping. Patient expresses that her pain is a 10/10 on the pain scale. No hx of treatment/ injury. Allergies metronidazole Allergy (Unknown, Verified 12/02/23 14:05) hand tingling Sulfa (Sulfonamide Antibiotics) Allergy (Unknown, Verified 12/02/23 14:05) hand tingling HPI HPI New Pt - left knee pain: Details: 58-year-old female who presents in the office today, as a new patient, for an evaluation of left knee pain. Patient was seen by her PCP on 11/27/2023 when x- rays were reviewed, and she was referred to PT. While in the office today the patient reports her pain began about 2 weeks ago and has since increased. She reports the pain is throughout the entire knee with no radiation. Confirms an increase in pain with ambulating, standing, and sleeping. She claims her pain is a 10/10 in the office today. Denies any prior treatment or known injury with twisting or falling. Patient denies a history of diabetes mellitus. FORMERLY [facility] Medical History (Updated 12/02/23 @ 14:35 by Ashley Contreras) Colon cancer screening Knee pain, bilateral Women's annual routine gynecological examination Encounter for screening examination for sexually transmitted disease Cervical cancer screening ASCUS of cervix with negative high risk HPV Contracture of finger joint Carpal tunnel syndrome of right wrist Hypothyroid Osteoarthritis Obesity (BMI 30-39.9) Thyroid nodule Vitamin D deficiency ASCUS (atypical squamous cells of undetermined significance) on gynecologic Papanicolaou smear complicating , antepartum Vitamin B12 deficiency GERD (gastroesophageal reflux disease) Asthma Anemia Surgical History History of tubal ligation History of tonsillectomy History of appendectomy Family History Father Alcohol abuse Mother Diabetes Hypertension Heart problem Brother Alive and well Brother History of open heart surgery Social History (Updated 12/02/23 @ 14:09 by Brittany Anderson) Household Members: None Housing: House Alcohol intake: never Patient Tobacco Use Status: Never used Tobacco e-Cigarette/Vaping Use: Never Used Second Hand Smoke Exposure: No service: No Current occupational status: employed Current occupation: [employer] Sexual orientation: Straight/Heterosexual Gender identity: Female Cognitive needs: No Hearing needs: No Vision needs: No Female Reproductive History Menstrual Age of Menarche: 10 Review of Systems Const All systems reviewed & are unremarkable except as noted in HPI and below Physical Exam Const General: cooperative and no acute distress Orientation/consciousness: patient oriented x3 Resp Effort & Inspection: normal respiratory effort and able to speak in complete sentences Cardio Peripheral pulses: Peripheral pulses 2+ throughout Skin General skin exam: no rashes or lesions noted Neuro General: patient oriented x3 Extrem Other: Left knee: Normal to inspection. No ecchymosis, erythema, or joint effusion. No tenderness to palpation along the medial or lateral joint lines. Full knee extension and flexion. Crepitus felt with ROM. NVI. Office Procedures Joint Injection/Drain Joint Injection/Drain Primary Site: left knee Prep: site was prepped using aseptic technique, site was prepped using sterile technique and ethochloride spray was applied Injected: 80 mg of, DepoMedrol, with 8 mL of (2% plain lido ) and in the joint Approach Used: anterolateral Procedure: The patient tolerated the procedure well, but had some pain with the injection and there was some relief with the local anesthesia Coding 53392 - Large joint Procedure code (CPT) selection complete Assessment & Plan Assessment & Plan (1) Osteoarthritis of left knee: Code(s): M17.12 - Unilateral primary osteoarthritis, left knee Category: Medical Qualifiers: Osteoarthritis type: unspecified Qualified Code(s): M17.12 - Unilateral primary osteoarthritis, left knee Plan Ms. Dixon is a 58-year-old female who presents in the office today, as a new patient, for an evaluation of left knee pain. Patient was seen by her PCP on 11/27/2023 when x-rays were reviewed, and she was referred to PT. While in the office today the patient reports her pain began about 2 weeks ago and has since increased. She reports the pain is throughout the entire knee with no radiation. Confirms an increase in pain with ambulating, standing, and sle eping. She claims her pain is a 10/10 in the office today. Denies any prior treatment or known injury with twisting or falling. Patient denies a history of diabetes mellitus. The patient was offered a cortisone injection in the left knee with 80 mg of DepoMedrol. The patient was explained the risk, benefits, and alternatives to receiving this injection. After receiving consent for the injection, the patient had the procedure done while in the office today. The patient tolerated the procedure well with no complications. Follow up will be PRN, or sooner if needed. X-rays of the left knee which were obtained while in the office today and were reviewed by me, Shiloh Day PA-C, revealed osteoarthritis. X-rays of the bilateral knees, obtained on 05/14/2023, revealed: Mild degen erative changes in bilateral knees. Orders: Orders XR knee LT 2V 12/02/23 M25.569 - Pain in unspecified knee Patient Instructions: Scribed by Ashley Contreras medical pathology teacher, for Shiloh Day PA-C on 12/02/2023 at 2:07 pm, EST. Coding Level of Care Code New Pt Level 4 (80497) Diagnoses Osteoarthritis of left knee, unspecified osteoarthritis type M17.12 Osteoarthritis type: unspecified CPT Codes Coding - 64988 Large joint: 25473 - Large joint ([id number])
== END 2023-12-02 14:46 | disposition home or self-care (01) ==
PROVIDERS: PCP Internal Medicine; Visit Provider Physician Assistant
DX: M17.12 Unilateral primary osteoarthritis, left knee (principal)
CPT/HCPCS: 20610; 99203

== ENCOUNTER 2023-12-20 10:00 | Outpatient (RCR) | payer OTHER, SELFPAY ==
--- NOTE | 2023-12-18 18:02 | MHC.PT.EP ---
[facility] [place] Office [place] Office [place] [facility] [address] Sabina Milner [address] [phone] F: [phone] F: [phone] F: [phone] F: [phone] Physical Therapy Plan of Care Date of Evaluation: 12/18/23 Date of Surgery: N/A Diagnosis: low back pain (RL) Assessment: pt is a 58 y/o female presenting to physical therapy w/ referring diagnosis of low back pain. Impairments include pain, decreased range of motion, decreased strength, impaired functional mobility, impaired postural awareness, and altered ambulation mechanics. pt is a good candidate for skilled PT due to age, potential remediation of impairments, typical disease/condition progression and prognosis, comorbidities, and motivation. pt would benefit from skilled PT intervention to provide a tailored strengthening and stretching exercise program, functional training, gait training, postural re-training, neuromuscular re-education, modalities as needed for pain, equipment safety demonstration. Frequency and Duration: The patient will be seen 2x/wk for 4 wks Short Term Goals: pt will be I w/ HEP to promote self-management of condition. pt will demo proper sitting posture w/ lumbar roll to promote neutral spine w/ seated ADLs. pt will demo proper squatting/lifting techniques w/ 25# object to promote ease in work-related tasks. Senior Living Goals: pt will report a statistically significant improvement in self-reported outcome measure, Naresh, to promote return to PLOF. pt will improve lumbar spine flexion AROM to at least 75% to promote ease in lower body dressing. Treatment Plan: Modalities to reduce pain, spasms and effusion. Manual therapy to restore motion and function. Therapeutic exercise to improve strength and flexibility. Neuromuscular re-education for posture and balance. Therapeutic activities to return to functional activities of daily living. Electronically signed by: Bren Rutherford PT, DPT Please sign and return to therapist. Thank you for your referral.
--- NOTE | 2024-01-06 13:32 | MHC.PT.DC ---
[facility] [place] Office [place] Office [place] Office [address] Sabina Milner 140 [facility] [phone] F: [phone] F: [phone] F: [phone] F: [phone] Physical Therapy Discharge Report Diagnosis: low back pain (RL) Date of Surgery: N/A Date of Evaluation: 12/18/23 Date of Discharge: 01/06/24 Treatments to Date: 2 Cancellations to Date: 5 No Shows to Date: 0 Discharge Status: Visit Non-compliance Discharge Summary: The patient has cancelled 5 consecutive appointments through [employer] automated system. This does not seem like a good time for her to commit to physical therapy. She is discharged from this physical therapy plan of care. Electronically signed by: Bren Rutherford PT, DPT Please sign and return to therapist. Thank you for your referral.
== END 2024-01-06 13:33 | disposition home or self-care (01) ==
LOC: HO.PT 10:00
PROVIDERS: PCP Internal Medicine; Visit Provider Internal Medicine
DX: M25.562 Pain in left knee (principal); M54.50 Low back pain, unspecified
CPT/HCPCS: 97110; 97140; 97162

== ENCOUNTER 2023-12-31 10:09 | Outpatient (REF) | payer OTHER, SELFPAY ==
--- NOTE | ~2023-12-31 | XR_ITS ---
EXAMINATION: XR WRIST, RIGHT CLINICAL INFORMATION: Pain in unspecified wrist. COMPARISON: October 02, 2022. TECHNIQUE: Three views of the right wrist. FINDINGS: Moderate degenerative changes in the first carpometacarpal joint with joint space narrowing and hypertrophic change. Ulnar minus variance. Mild degenerative changes in multiple MCP joints. Dominant cystic lucency in the hamate difficult to fully evaluate due to overlapping bony structures. XR/XR wrist RT min 3V IMPRESSION: 1. Moderate degenerative changes first carpometacarpal joint. 2. Dominant cystic lucency in the hamate difficult to fully evaluate due to overlapping bony structures. 3. Recommend follow-up imaging in 10-14 days if fracture is suspected.
== END 2023-12-31 10:10 | disposition home or self-care (01) ==
LOC: HO.HOSX 10:09
PROVIDERS: Visit Provider Physician Assistant
DX: M19.031 Primary osteoarthritis, right wrist (principal)
CPT/HCPCS: 73110; 99212

== ENCOUNTER 2023-12-31 14:51 | Outpatient (AMB) | payer OTHER, SELFPAY ==
[2023-12-31 15:02] VITALS: BMI 31.8
--- NOTE | 2023-12-31 15:02 | A.OFFVIS_ITS ---
Vital Signs 12/31/23 15:02 Height 5 ft Weight 163 lb BMI 31.8 Intake Visit Reasons: New Prob - right wrist pain Intake Note: Megha is a 58 year old right hand dominant female who presents today for a evaluation of her right wrist pain. Patient reports her pain has been getting better slowly. Currently having no pain at the moment. No other questions or concerns. Patient just wants to know what the x rays show and how everything looks. Allergies metronidazole Allergy (Unknown, Verified 12/31/23 15:06) hand tingling Sulfa (Sulfonamide Antibiotics) Allergy (Unknown, Verified 12/31/23 15:06) hand tingling HPI HPI New Prob - right wrist pain: Details: 58-year-old right hand dominant female who presents in the office today for an evaluation of right wrist pain. The patient was seen by her PCP on 10/02/2022 status post right wrist pain after overuse when moving beds. X-rays were obtained at that time. While in the office today the patient reports her pain is slowly getting better. She denies having pain while in the office. She denies having any questions or concerns. She would like to review the x-rays obtained in the office today. [facility] Medical History (Updated 12/31/23 @ 15:29 by Ashley Contreras) Colon cancer screening Knee pain, bilateral Women's annual routine gynecological examination Encounter for screening examination for sexually transmitted disease Cervical cancer screening ASCUS of cervix with negative high risk HPV Contracture of finger joint Carpal tunnel syndrome of right wrist Hypothyroid Osteoarthritis Obesity (BMI 30-39.9) Thyroid nodule Vitamin D deficiency ASCUS (atypical squamous cells of undetermined significance) on gynecologic Papanicolaou smear complicating , antepartum Vitamin B12 deficiency GERD (gastroesophageal reflux disease) Asthma Anemia Surgical History History of tubal ligation History of tonsillectomy History of appendectomy Family History Father Alcohol abuse Mother Diabetes Hypertension Heart problem Brother Alive and well Brother History of open heart surgery Social History (Updated 12/02/23 @ 14:09 by Brittany Anderson) Household Members: None Housing: House Alcohol intake: never Patient Tobacco Use Status: Never used Tobacco e-Cigarette/Vaping Use: Never Used Second Hand Smoke Exposure: No service: No Current occupational status: employed Current occupation: [employer] Sexual orientation: Straight/Heterosexual Gender identity: Female Cognitive needs: No Hearing needs: No Vision needs: No Female Reproductive History Menstrual Age of Menarche: 10 Review of Systems Const All systems reviewed & are unremarkable except as noted in HPI and below Physical Exam Vital Signs: BMI result Body Mass Index 31.8 Const General: cooperative, healthy appearing and no acute distress Resp Effort & Inspection: normal respiratory effort and able to speak in complete sentences Cardio Rate: regular rate Peripheral pulses: Peripheral pulses 2+ throughout GI Palpation (GI): Soft to palpation Skin Lesions: no lesions Rashes: no rashes Extrem Other: Right wrist: Normal to inspection. No ecchymosis, erythema, or edema. Tenderness to palpation at the CMC joint and sorenss with acial loading in this area. Able to perform full finger flexion, extension, abduction, adduction, finger cross, okay sign, and thumbs up without deficit. Able to make a closed fist. Sensation intact. Capillary refill is brisk. Radial pulse intact. Assessment & Plan Assessment & Plan (1) Arthritis of right wrist: Comment: Basal joint arthritis Code(s): M19.031 - Primary osteoarthritis, right wrist Category: Medical Plan Ms. Dixon is a 58-year-old right hand dominant female who presents in the office today for an evaluation of right wrist pain. The patient was seen by her PCP on 10/02/2022 status post right wrist pain after overuse when moving beds. X-rays were obtained at that time. While in the office today the patient reports her pain is slowly getting better. She denies having pain while in the office. She denies having any questions or concerns. She would like to review the x-rays obtained in the office today. The patient was given a CMC joint controller brace, off the shelf. We discussed the role of cortisone injections but have deferred at this time. Follow-up will be PRN, or sooner if needed. X-rays of the right wrist which were obtained while in the office today and were reviewed by me, Shiloh Day PA-C, revealed no acute fractures or dislocation. X-rays of the bilateral hands, obtained on 10/02/2022, revealed: LEFT HAND/WRIST: There is loss of PIP and DIP joint space with mild periarticular spurring in DIP joint fifth digit. Moderate periarticular spurring is seen of 1st carpometacarpal joint. No aggressive lytic or sclerotic process seen. Soft tissues are normal. There is negative ulnar variance. RIGHT HAND: There is mild loss of PIP and DIP joint space with mild periarticular spurring. No acute fracture or dislocation seen. The soft tissues are normal. Orders: Orders XR wrist RT min 3V 12/31/23 M25.539 - Pain in unspecified wrist Patient Instructions: Scribed by Ashley Contreras medical records receptionist, for Shiloh Day PA-C on 12/31/2023 at 2:53 pm, EST. Coding Level of Care Code Est Pt Level 3 (28604) Diagnoses Arthritis of right wrist M19.031
== END 2023-12-31 15:31 | disposition home or self-care (01) ==
PROVIDERS: PCP Internal Medicine; Visit Provider Physician Assistant
DX: M19.031 Primary osteoarthritis, right wrist (principal)
CPT/HCPCS: 99213

== ENCOUNTER 2024-01-02 08:44 | Outpatient (AMB) | payer OTHER, SELFPAY ==
--- NOTE | 2024-01-02 08:50 | MHC.OFFVIS ---
Vital Signs 01/02/24 08:54 Height 5 ft Weight 163 lb BMI 31.8 Intake Visit Reasons: OV - left knee pain Intake Note: Megha is a 58 year old female who presents today for a follow up of her left knee OA, last injection 12/02/23. Patient reports that her injection didn't give her relief. She state that her last injection increase her knee pain. Patient expresses that she doesn't want to go to PT. Allergies metronidazole Allergy (Unknown, Verified 01/02/24 08:53) hand tingling Sulfa (Sulfonamide Antibiotics) Allergy (Unknown, Verified 01/02/24 08:53) hand tingling HPI HPI OV - left knee pain: Details: 58-year-old female who presents in the office today for a follow-up of left knee osteoarthritis. I last saw the patient in the office on 12/02/2023 when she received a cortisone injection. While in the office today the patient reports her last injection did not give her any relief but did cause an increase in left knee pain. She also states she does not want to attend physical therapy. [facility] Medical History (Updated 12/31/23 @ 15:29 by Ashley Contreras) Colon cancer screening Knee pain, bilateral Women's annual routine gynecological examination Encounter for screening examination for sexually transmitted disease Cervical cancer screening ASCUS of cervix with negative high risk HPV Contracture of finger joint Carpal tunnel syndrome of right wrist Hypothyroid Osteoarthritis Obesity (BMI 30-39.9) Thyroid nodule Vitamin D deficiency ASCUS (atypical squamous cells of undetermined significance) on gynecologic Papanicolaou smear complicating , antepartum Vitamin B12 deficiency GERD (gastroesophageal reflux disease) Asthma Anemia Surgical History History of tubal ligation History of tonsillectomy History of appendectomy Family History Father Alcohol abuse Mother Diabetes Hypertension Heart problem Brother Alive and well Brother History of open heart surgery Social History Household Members: None Housing: House Alcohol intake: never Patient Tobacco Use Status: Never used Tobacco e-Cigarette/Vaping Use: Never Used Second Hand Smoke Exposure: No service: No Current occupational status: employed Current occupation: [employer] Sexual orientation: Straight/Heterosexual Gender identity: Female Cognitive needs: No Hearing needs: No Vision needs: No Female Reproductive History Menstrual Age of Menarche: 10 Review of Systems Const All systems reviewed & are unremarkable except as noted in HPI and below Physical Exam Vital Signs: BMI result Body Mass Index 31.8 Const General: cooperative, healthy appearing and no acute distress Resp Effort & Inspection: normal respiratory effort and able to speak in complete sentences Cardio Rate: regular rate Peripheral pulses: Peripheral pulses 2+ throughout GI Palpation (GI): Soft to palpation Skin Lesions: no lesions Rashes: no rashes Extrem Other: Left knee: Normal to inspection. No ecchymosis, erythema, or joint effusion. No tenderness to palpation along the medial or lateral joint lines. Full knee extension and flexion. Crepitus felt with ROM. NVI. Assessment & Plan Assessment & Plan (1) Osteoarthritis of left knee: Code(s): M17.12 - Unilateral primary osteoarthritis, left knee Category: Medical Qualifiers: Osteoarthritis type: unspecified Qualified Code(s): M17.12 - Unilateral primary osteoarthritis, left knee Plan Ms. Dixon is a 58-year-old female who presents in the office today for a follow-up of left knee osteoarthritis. I last saw the patient in the office on 12/02/2023 when she received a cortisone injection. While in the office today the patient reports her last injection did not give her any relief but did cause an increase in left knee pain. She also states she does not want to attend physical therapy. I discussed the role of physical therapy with the patient, but she is not interested in attending at this time. I offered the patient a different knee brace, however, she declined in the office today. A prescription for a topical pain cream was created. I also placed a referral to Pain Management for further evaluation and treatment. Follow-up will be PRN, or sooner if needed. Orders: Referrals Pain Management Referral M17.12 - Unilateral primary osteoarthritis, left knee Patient Instructions: Scribed by Ashley Contreras medical secretary, for Shiloh Day PA-C on 01/02/2024 at 8:46 am, EST. Coding Level of Care Code Est Pt Level 3 (90547) Diagnoses Osteoarthritis of left knee, unspecified osteoarthritis type M17.12 Osteoarthritis type: unspecified
[2024-01-02 08:54] VITALS: BMI 31.8
== END 2024-01-02 09:27 | disposition home or self-care (01) ==
PROVIDERS: PCP Internal Medicine; Visit Provider Physician Assistant
DX: M17.12 Unilateral primary osteoarthritis, left knee (principal)
CPT/HCPCS: 99213

== ENCOUNTER → 2024-01-02 08:44 | Outpatient (BNVA) | payer OTHER, SELFPAY | PROVIDERS: PCP Internal Medicine; Visit Provider Physician Assistant | DX: M17.12 Unilateral primary osteoarthritis, left knee (principal) | CPT/HCPCS: 99212 ==

== ENCOUNTER 2024-01-07 12:09 | Outpatient (AMB) | payer OTHER, SELFPAY ==
[2024-01-07 12:13] VITALS: BP 126/80; PULSE 78; TEMP 36.7; O2SAT 98; BMI 31.8
--- NOTE | 2024-01-07 12:13 | AM.OFFWIN_ITS ---
Intake Vital Signs 01/07/24 12:13 Height 5 ft Weight 163 lb BMI 31.8 BP 126/80 Blood Pressure Location Rt brachial Position Sitting Pulse 78 Pulse Source Pulse Oximeter Temp 98.0 F Temp Source Oral Pulse Oximetry (%) 98 Intake Visit Reasons: EP Vaginal concerns Intake Note: pt is here for possible yeast infection Patient Tobacco Use Status: Never used Tobacco Allergies metronidazole Allergy (Unknown, Verified 01/07/24 12:18) hand tingling Sulfa (Sulfonamide Antibiotics) Allergy (Unknown, Verified 01/07/24 12:18) hand tingling Do you need a note to return to daycare/school/sports/work: No HPI HPI Comments History of Present Illness Details Patient is a 58-year-old female complaining of 2 days of vaginal irritation, itching and burning when she pees, she denies any discharge or fevers. She does admit to a history of kidney stones which she has been able to pass on her own in the past. She states she did try using Vagisil which seemed to make the pain worse. [facility] Medical History (Updated 01/07/24 @ 12:38 by Ilene Sabillon PA-C) Colon cancer screening Knee pain, bilateral Women's annual routine gynecological examination Encounter for screening examination for sexually transmitted disease Cervical cancer screening ASCUS of cervix with negative high risk HPV Contracture of finger joint Carpal tunnel syndrome of right wrist Hypothyroid Osteoarthritis Obesity (BMI 30-39.9) Thyroid nodule Vitamin D deficiency ASCUS (atypical squamous cells of undetermined significance) on gynecologic Papanicolaou smear complicating , antepartum Vitamin B12 deficiency GERD (gastroesophageal reflux disease) Asthma Anemia Surgical History History of tubal ligation History of tonsillectomy History of appendectomy Family History Father Alcohol abuse Mother Diabetes Hypertension Heart problem Brother Alive and well Brother History of open heart surgery Social History Household Members: None Housing: House Alcohol intake: never Patient Tobacco Use Status: Never used Tobacco e-Cigarette/Vaping Use: Never Used Second Hand Smoke Exposure: No service: No Current occupational status: employed Current occupation: [employer] Sexual orientation: Straight/Heterosexual Gender identity: Female Cognitive needs: No Hearing needs: No Vision needs: No Female Reproductive History Menstrual Age of Menarche: 10 Review of Systems Const All systems reviewed & are unremarkable except as noted in HPI and below Physical Exam Vital Signs: Last Vital Signs Temp 98.0 F 01/07/24 12:13 Pulse 78 01/07/24 12:13 BP 126/80 01/07/24 12:13 Pulse Ox 98 01/07/24 12:13 BMI result Body Mass Index 31.8 Const General: cooperative, healthy appearing, comfortable and no acute distress Orientation/consciousness: patient oriented x3 Limitations: no limitations HEENT Head: Yes normal to inspection Eyes General: appearance normal, both eyes and all related structures Neck Neck: Yes normal visual inspection, Yes full ROM and Yes no lymphadenopathy Resp Effort & Inspection: normal respiratory effort and able to speak in complete sentences Skin General skin exam: no rashes or lesions noted Neuro General: patient oriented x3 Results AMB Urinalysis, Automated UA Leukoctes 15 Doc/uL Last Edit by Gerald Carreno CMA on 01/07/24 12:29 UA Nitrite Negative Last Edit by Gearld Carreno CMA on 01/07/24 12:29 UA Urobilinogen 0.2 mg/dL Last Edit by Gerald Carreno CMA on 01/07/24 12 :29 UA Protein 0 mg/dL Last Edit by Gerald Carreno CMA on 01/07/24 12:29 UA pH 6.5 Last Edit by Gerald Carreno CMA on 01/07/24 12:29 UA Blood 80 Juan/uL Last Edit by Gerald Carreno CMA on 01/07/24 12:29 UA Specific Hettinger 1.010 Last Edit by Geradl Carreno CMA on 01/07/24 12:29 UA Ketone Negative Last Edit by Gerald Carreno CMA on 01/07/24 12:29 UA Bilirubin 0 mg/dL Last Edit by Gerald Carreno CMA on 01/07/24 12:29 UA Glucose 0 mg/dL Last Edit by Gerald Carreno CMA on 01/07/24 12:29 Results Reviewed Results Reviewed: Laboratory Last Values Urine pH (Auto) 6.5 01/07/24 12:28 Specific Hettinger (Auto) 1.010 01/07/24 12:28 Urine Protein (Auto) 0 mg/dL 01/07/24 12:28 Glucose (UA)(Auto) 0 mg/dL 01/07/24 12:28 Urine Ketones (Auto) Negative 01/07/24 12:28 Urine Blood (Auto) 80 Juan/uL 01/07/24 12:28 Urine Nitrite (Auto) Negative 01/07/24 12:28 Urine Bilirubin (Auto) 0 mg/dL 01/07/24 12:28 Urine Urobilinogen (Auto) 0.2 mg/dL 01/07/24 12:28 Leukocyte Esterase (Auto) 15 Doc/uL 01/07/24 12:28 Assessment & Plan Assessment & Plan (1) Urinary tract infection: Code(s): N39.0 - Urinary tract infection, site not specified Qualifiers: Urinary tract infection type: acute cystitis Hematuria presence: with hematuria Qualified Code(s): N30.01 - Acute cystitis with hematuria Plan: Positive for leukocyte esterase, and blood. We will treat for UTI as she is symptomatic but also noted to be on the look out for stones with hematuria. Did send prescription for Diflucan for after she takes the antibiotic. Plan see above Orders: Orders AMB Urinalysis Automated Today Z13.9 - Encounter for screening, unspecified Medications: New fluconazole may repeat second dose 72 hrs after first dose if symptoms persist 150 mg PO Q3D 2 tabs 0RF cefuroxime axetil 500 mg PO Q12H 10 tabs 0RF Coding Level of Care Code Est Pt Level 3 (49669) Diagnoses Acute cystitis with hematuria N30.01 Urinary tract infection type: acute cystitis Hematuria presence: with hematuria
== END 2024-01-07 12:58 | disposition home or self-care (01) ==
PROVIDERS: PCP Internal Medicine; Visit Provider Physician Assistant
DX: N30.01 Acute cystitis with hematuria (principal)
CPT/HCPCS: 81003; 99213

== ENCOUNTER 2024-03-09 15:24 | Outpatient (REF) | payer OTHER, SELFPAY ==
--- NOTE | ~2024-03-09 | MM_ITS ---
EXAMINATION: MM SCREENING DIGITAL BREAST TOMOSYNTHESIS, BILATERAL CLINICAL INFORMATION: Screening. Asymptomatic. COMPARISON: Mammography: This study is compared with prior exams dating back to 2018. TECHNIQUE: Digital breast tomosynthesis is performed in both the craniocaudal and mediolateral oblique views along with computer-aided detection (CAD). Synthesized 2D images are generated from the tomosynthesis. FINDINGS: There are scattered areas of fibroglandular density (ACR BI-RADS breast composition Category b). There are no significant masses, abnormal calcifications, or other abnormalities. MM/MM tomosynthesis screening BI IMPRESSION: No mammographic evidence of malignancy. ASSESSMENT: BI-RADS BI-RADS 1 - Negative RECOMMENDATION: Routine annual mammography screening. 1 year F/U This examination should not preclude the clinical evaluation of a suspicious palpable abnormality. This patient's information was entered into a reminder system with a target due date for their next mammogram. Electronically signed by: Doris Cesar MD 04/06/2024 10:53 AM EDT
== END 2024-03-09 15:25 | disposition home or self-care (01) ==
LOC: HO.MAMMO 15:24
PROVIDERS: PCP Internal Medicine; Visit Provider Internal Medicine
DX: Z12.31 Encounter for screening mammogram for malignant neoplasm of breast (principal)
CPT/HCPCS: 77063; 77067

== ENCOUNTER → 2024-03-09 15:45 | Outpatient (BNV) | payer OTHER, SELFPAY | PROVIDERS: PCP Internal Medicine; Visit Provider Radiology Diagnostic Radiology | DX: Z12.31 Encounter for screening mammogram for malignant neoplasm of breast (principal) | CPT/HCPCS: 77063; 77067 ==

== ENCOUNTER 2024-03-09 16:19 | Outpatient (AMB) | payer OTHER, SELFPAY ==
--- NOTE | 2024-03-09 16:27 | MHC.PC.OV ---
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 Required: No Accompanied by: Self / Same As Patient Allergies metronidazole Allergy (Unknown, Verified 03/09/24 16:33) hand tingling Sulfa (Sulfonamide Antibiotics) Allergy (Unknown, Verified 03/09/24 16:33) hand tingling Medication List - Last Reconciled 03/09/24 by Sherrie Gibson MD bisacodyl 10 mg (2 x 5 mg) PO DAILY PRN cholecalciferol (vitamin D3) 50 mcg PO DAILY 90 days cyanocobalamin (vitamin B-12) 1,000 mcg PO DAILY 90 days levothyroxine 100 mcg PO DAILY meloxicam 7.5 mg PO DAILY polyethylene glycol 3350 (Miralax) 17 grams PO BID psyllium husk (Fiber (psyllium husk)) 1.04 grams (2 x 0.52 gram) PO DAILY PRN semaglutide (weight loss) (Wegovy) 0.25 mg (0.5 mL) subcut QWEEK sennosides-docusate sodium 8.6-50 mg (Senna Plus) 2 tab-caps (2 x 8.6-50 mg) PO BEDTIME tizanidine 4 mg PO BEDTIME PRN Tobacco use date assessed: 11/27/23 Dental Screening Dental Screen Date: 11/27/23 Did you have a dental visit in the last 12 months?: No Did you have a dental problem in the last 6 months where you did not have access to dental care?: No Was dental information given to patient?: No HPI follow up HPI Details 59-year-old obese female with constipation GERD hypothyroid impaired glucose tolerance generalized anxiety disorder last seen in November 2023 having knee pain left low back pain and right wrist pain. Patient was sent for physical therapy meanwhile mammogram is due this month reminded about colonoscopy.. Urgent Center in December 2023 for UTI treated with cefuroxime patient has also seen Orthopedics for the left knee pain osteoarthritis and received a cortisone injection patient was also referred for pain management. [facility] Medical History (Updated 03/09/24 @ 17:56 by Sherrie Gibson MD) Colon cancer screening Knee pain, bilateral Women's annual routine gynecological examination Encounter for screening examination for sexually transmitted disease Cervical cancer screening ASCUS of cervix with negative high risk HPV Contracture of finger joint Carpal tunnel syndrome of right wrist Hypothyroid Osteoarthritis Obesity (BMI 30-39.9) Thyroid nodule Vitamin D deficiency ASCUS (atypical squamous cells of undetermined significance) on gynecologic Papanicolaou smear complicating , antepartum Vitamin B12 deficiency GERD (gastroesophageal reflux disease) Asthma Anemia Surgical History History of tubal ligation History of tonsillectomy History of appendectomy Family History Father Alcohol abuse Mother Diabetes Hypertension Heart problem Brother Alive and well Brother History of open heart surgery Social History Household Members: None Housing: House Alcohol intake: never Patient Tobacco Use Status: Never used Tobacco e-Cigarette/Vaping Use: Never Used Second Hand Smoke Exposure: No service: No Current occupational status: employed Current occupation: [employer] Sexual orientation: Straight/Heterosexual Gender identity: Female Cognitive needs: No Hearing needs: No Vision needs: No Female Reproductive History Menstrual Age of Menarche: 10 Questionnaire Thrive Questionnaire Date Thrive assessed: 11/27/23 FANTASMA-7 AMB Questionnaire FANTASMA-7 Date FANTASMA - 7 assessed: 11/27/23 Source: Developed by Drs. Mason Guillen, Marita Buenrostro, Ryley Durand and colleagues, with an educational elian from [employer]. Physical exam (Primary Care) Vital Signs: Last Vital Signs Pulse 78 03/09/24 16:28 BP 124/78 03/09/24 16:28 Pulse Ox 97 03/09/24 16:28 Oxygen Delivery Method Room Air 03/09/24 16:28 BMI result Body Mass Index 32.5 Tobacco/Smoking Status: Tobacco use Status Tobacco use date assessed 11/27/23 03/09/24 16:33 Patient Tobacco Use Status Never used Tobacco 03/09/24 16:33 e-Cigarette/Vaping Use Never Used 03/09/24 16:33 Thrive Assessment: Date of Thrive Assessment Date Thrive assessed 11/27/23 03/09/24 16:33 Const General: alert; No acute distress Eyes Conjunctivae: conjunctivae normal Resp Auscultation: clear to auscultation bilaterally Cardio Rate: regular rate Rhythm: regular rhythm GI Inspection: Yes normal to inspection Extrem General: Yes normal to inspection and No edema Assessment and Plan Assessment & Plan (1) Impaired glucose tolerance: Code(s): R73.02 - Impaired glucose tolerance (oral) Plan: Decrease the amount of carbohydrate intake, pasta, bread, rice and potatoes are all sugar and that is aside from all the sweet stuff, remember that fruits are good but they are Sweet also. (2) Hypothyroid: Code(s): E03.9 - Hypothyroidism, unspecified Qualifiers: Hypothyroidism type: acquired Qualified Code(s): E03.9 - Hypothyroidism, unspecified Plan: Continue with thyroid Medicaid (3) Obesity (BMI 30-39.9): Code(s): E66.9 - Obesity, unspecified Plan: Diet and exercise (4) GERD (gastroesophageal reflux disease): Code(s): K21.9 - Gastro-esophageal reflux disease without esophagitis Qualifiers: Esophagitis presence: without esophagitis Qualified Code(s): K21.9 - Gastro-esophageal reflux disease without esophagitis Plan: Avoid the foods that causes that usually spicy foods, tomato products, juices, coffee, soda and foods that your sensitive to. After eating do not lie down, allow 3-4 hours before in lie down. And keep the head of bed above 30 degrees to avoid the acid from going up. (5) Wrist pain, right: Code(s): M25.531 - Pain in right wrist Plan: Has been seen by orthopedics. (6) Knee pain, left: Code(s): M25.562 - Pain in left knee Plan: Patient was seen by orthopedics osteoarthritis (7) Constipation: Code(s): K59.00 - Constipation, unspecified Plan: Three rules for constipation 1. Diet need to have a high fiber diet less of meat 2. Increase oral fluids 3. Exercise (8) Muscle spasm: Code(s): M62.838 - Other muscle spasm Plan: Patient admitted to recent exercise the legs and hence muscle spasms. Muscle relaxant prescription sent in. Keep well hydrated. Continue with exercises Medications: New tizanidine 4 mg PO BEDTIME PRN 30 caps 0RF muscle spasticity M62.838 - Other muscle spasm sennosides-docusate sodium 8.6-50 mg (Senna Plus) 2 tab-caps (2 x 8.6-50 mg) PO BEDTIME 60 caps 2RF K59.00 - Constipation, unspecified psyllium husk (Fiber (psyllium husk)) 1.04 grams (2 x 0.52 gram) PO DAILY PRN 90 caps 3RF constipation K59.00 - Constipation, unspecified semaglutide (weight loss) (Fadumo) administer weeks 1 through 4 of therapy 0.25 mg (0.5 mL) subcut QWEEK 2 mL 0RF E66.9 - Obesity, unspecified Discontinued fluconazole may repeat second dose 72 hrs after first dose if symptoms persist Discontinued Reason: Patient Completed Course 150 mg PO Q3D 2 tabs 0RF cefuroxime axetil Discontinued Reason: Patient Completed Course 500 mg PO Q12H 10 tabs 0RF Coding Level of Care Code Est Pt Level 4 (43379) Diagnoses Impaired glucose tolerance R73.02 Acquired hypothyroidism E03.9 Hypothyroidism type: acquired Obesity (BMI 30-39.9) E66.9 Gastroesophageal reflux disease without esophagitis K21.9 Esophagitis presence: without esophagitis Wrist pain, right M25.531 Knee pain, left M25.562 Constipation K59.00 Muscle spasm M62.838
[2024-03-09 16:28] VITALS: BP 124/78; PULSE 78; O2SAT 97; BMI 32.5
== END 2024-03-09 18:06 | disposition home or self-care (01) ==
PROVIDERS: PCP Internal Medicine; Visit Provider Internal Medicine
DX: R73.02 Impaired glucose tolerance (oral) (principal); E03.9 Hypothyroidism, unspecified; E66.9 Obesity, unspecified; Z68.32 Body mass index [BMI] 32.0-32.9, adult; K21.9 Gastro-esophageal reflux disease without esophagitis; M25.531 Pain in right wrist; M25.562 Pain in left knee; K59.00 Constipation, unspecified; M62.838 Other muscle spasm
CPT/HCPCS: 99214

== ENCOUNTER 2024-05-18 14:49 | Outpatient (AMB) | payer OTHER, SELFPAY ==
--- NOTE | 2024-05-18 14:56 | AM.OFFVISNUR ---
Intake Visit Reasons: PPD Implant Allergies metronidazole Allergy (Unknown, Verified 03/09/24 16:33) hand tingling Sulfa (Sulfonamide Antibiotics) Allergy (Unknown, Verified 03/09/24 16:33) hand tingling Office Meds tuberculin PPD 5 tub. unit/0.1 mL intradermal injection solution Performing Provider: Sherrie Gibson MD [facility] Administered by: Ashley Brown LPN on 05/18/24 14:56 Dose Route Admin Location Dispensed Lot Number Expiration Date [facility] Customer Solutions Coordinator 0.1 mL intradermal left forearm 0.1 mL [id number] 12/18/26 16424-610-82 [employer] Assessment & Plan Assessment & Plan Orders: Orders AMB PPD Planted Today Z11.1 - Encounter for screening for respiratory tuberculosis Medications: New tuberculin PPD 0.1 mL intradermal ONCE 0.1 mL 0RF Z11.1 - Encounter for screening for respiratory tuberculosis
== END 2024-05-18 14:57 | disposition home or self-care (01) ==
LOC: HO.HMCH 14:49
PROVIDERS: PCP Internal Medicine; Visit Provider Internal Medicine
DX: Z11.1 Encounter for screening for respiratory tuberculosis (principal)

== ENCOUNTER → 2024-05-18 14:49 | Outpatient (BNVA) | payer OTHER, SELFPAY | PROVIDERS: PCP Internal Medicine; Visit Provider Internal Medicine | DX: Z11.1 Encounter for screening for respiratory tuberculosis (principal) | CPT/HCPCS: 86580 ==

== ENCOUNTER → 2024-05-20 15:05 | Outpatient (BNVA) | payer OTHER, SELFPAY | PROVIDERS: PCP Internal Medicine; Visit Provider Internal Medicine ==

== ENCOUNTER 2024-09-08 14:03 | Outpatient (AMB) | payer OTHER, SELFPAY ==
--- NOTE | 2024-09-08 14:04 | A.OFFVIS_ITS ---
Vital Signs 09/08/24 14:05 Height 5 ft Weight 165 lb 5.547 oz BMI 32.3 BP 109/64 Blood Pressure Location Lt brachial Position Sitting Pulse 93 Intake Visit Reasons: pre colonoscopy Intake Note: Megha presents in the office as a new patient for a colonoscopy screening. CC: She states that she was attempting to do a colonoscopy before but was unable to deal with the drink. Bushwalking Guide Required: No Allergies metronidazole Allergy (Unknown, Verified 09/25/24 15:41) hand tingling Sulfa (Sulfonamide Antibiotics) Allergy (Unknown, Verified 09/25/24 15:41) hand tingling HPI HPI pre colonoscopy: Details: 59 year old? female with past medical history of osteoarthritis of left knee, constipation, GERD, back pain, anxiety, DDD of lumbar, hypothyroidism is here today for pre colonoscopy screening.? Patient was sent to us by her PCP.? Patient attempted colonoscopy prep in the past, however patient was unable to tolerate. Patient was vomiting and unable to go through with the procedure. Patient has a history of GERD, however her symptoms are occasional as she is trying to avoid dietary triggers. Currently patient reports that she has been constipated. Was taking senna, however felt like it was not working for her. Patient was also taking MiraLax as needed. Patient denies any melena, hematochezia, unintentional weight loss or ribbon like stools.? ? Denies any personal or family history of gastrointestinal disease, colon polyps, or CRC.? Denies history of difficulty with sedation or anesthesia in the past.? Negative for history of sleep apnea.? Denies any history of cardiac, renal, pulmonary, or hepatic disease.?? No history of infectious? diseases like hepatitis A, B, C, HIV or tuberculosis.? Patient is not on any anticoagulation [facility] Medical History Colon cancer screening Knee pain, bilateral Women's annual routine gynecological examination Encounter for screening examination for sexually transmitted disease Cervical cancer screening ASCUS of cervix with negative high risk HPV Contracture of finger joint Carpal tunnel syndrome of right wrist Hypothyroid Osteoarthritis Obesity (BMI 30-39.9) Thyroid nodule Vitamin D deficiency ASCUS (atypical squamous cells of undetermined significance) on gynecologic Papanicolaou smear complicating , antepartum Vitamin B12 deficiency GERD (gastroesophageal reflux disease) Asthma Anemia Surgical History History of tubal ligation History of tonsillectomy History of appendectomy Family History Father Alcohol abuse Mother Diabetes Hypertension Heart problem Brother Alive and well Brother History of open heart surgery Social History Household Members: None Housing: House Alcohol intake: never Patient Tobacco Use Status: Never used Tobacco e-Cigarette/Vaping Use: Never Used Second Hand Smoke Exposure: No service: No Current occupational status: employed Current occupation: [employer] Sexual orientation: Straight/Heterosexual Gender identity: Female Cognitive needs: No Hearing needs: No Vision needs: No Female Reproductive History Menstrual Age of Menarche: 10 Review of Systems Const Denies weight gain and Denies weight loss ENT Reports no additional complaints, Denies dysphagia and Denies odynophagia Card Reports no additional complaints Resp Reports no additional complaints GI Denies abdominal pain, Denies belching, Denies melena, Denies bloating, Denies change in bowel habits, Denies dysphagia, Denies excessive flatus, Denies dyspepsia, Denies heartburn, Denies diarrhea, Denies loose stools, Denies nausea, Denies odynophagia and Denies vomiting Musc Reports no additional complaints Neuro Reports no additional complaints Psych Reports no additional complaints Endo Reports no additional complaints Physical Exam Vital Signs: Last Vital Signs Pulse 93 09/08/24 14:05 BP 109/64 09/08/24 14:05 BMI result Body Mass Index 32.3 Const General: healthy appearing, no acute distress and well developed Nutritional Appearance: well nourished Orientation/consciousness: patient oriented x3 Resp Effort & Inspection: normal respiratory effort, able to speak in complete sentences, no tracheal deviation and symmetric chest movement Auscultation: clear to auscultation bilaterally Cardio Rate: regular rate GI Inspection: Yes normal to inspection and No distended Palpation (GI): Soft to palpation, not firm, nontender and No hepatosplenomegaly present Auscultation: normal bowel sounds General: Yes no CVA tenderness Back/Spine/Pelvis Back: no CVA tenderness Skin General skin exam: elasticity normal, turgor normal and dry skin Neuro General: patient oriented x3 Psych Appearance: grossly normal Mental Status: mental status grossly normal Assessment & Plan Assessment & Plan (1) Colon cancer screening: Code(s): Z12.11 - Encounter for screening for malignant neoplasm of colon Category: Medical Plan Patient was encouraged to increase fluid intake and activity to promote better bowel motility. Patient can take Dulcolax 2 tablets daily. Discussed with patient prep. What to expect before during and after procedure discussed with patient. Stressed the importance of good bowel prep and clear liquid diet day before procedure. Message sent to surgical schedulers to book procedure for patient. Patient will see me in 3 months to re-evaluate. She is agreeable to this plan and verbalizes understanding of instructions. She was given the opportunity to ask questions and all questions answered. Thank you for allowing me to participate in her care Medications: New polyethylene glycol 3350 (Miralax) As directed by gastroenterology department at [facility] 238 grams PO ONCE 238 grams 0RF Z12.11 - Encounter for screening for malignant neoplasm of colon Changed From bisacodyl 10 mg (2 x 5 mg) PO DAILY PRN 30 tabs 0RF constipation K59.01 - Slow transit constipation To bisacodyl 10 mg (2 x 5 mg) PO DAILY 180 tabs 3RF constipation K59.01 - Slow transit constipation From psyllium husk 1.04 grams (2 x 0.52 gram) PO DAILY PRN 90 caps 3RF constipation K59.00 - Constipation, unspecified To psyllium husk (Fiber (psyllium husk)) 1.04 grams (2 x 0.52 gram) PO DAILY PRN 90 caps 3RF constipation K59.00 - Constipation, unspecified Discontinued polyethylene glycol 3350 Discontinued Reason: Doctor's Order 17 grams PO BID 30 ea 0RF constipation K59.01 - Slow transit constipation tizanidine Discontinued Reason: Patient no longer taking 4 mg PO BEDTIME PRN 30 caps 0RF muscle spasticity M62.838 - Other muscle spasm sennosides-docusate sodium 8.6-50 mg Discontinued Reason: Patient no longer taking 2 tab-caps (2 x 8.6-50 mg) PO BEDTIME 60 caps 2RF K59.00 - Constipation, unspecified Coding Level of Care Code New Pt Level 3 (41915) Diagnoses Colon cancer screening Z12.11 Time Spent (min) 40 Comment 30 minutes spent with patient and additional 10 minutes spent reviewing her records
[2024-09-08 14:05] VITALS: BP 109/64; PULSE 93; BMI 32.3
--- OUTSIDE RECORDS SUMMARY | 2024-09-08 15:06 | XMS_ITS | Clinical Summary ---
Author Organization [facility] [place] [address] Care Team Providers Care Production Assistant Name Role Phone Unavailable Primary Care Provider Unavailabl e Social History Tobacco Use Types Packs/Day Years Used Date Smoking Tobacco: Never Assessed Comments Unknown Sex and Gender Information Value Date Recorded Sex Assigned at Not on file Legal Sex Female 6:13 AM EST Gender Identity Not on file Sexual Orientation Not on file Plan of Treatment Health Maintenance Due Date Last Done Comments Breast Cancer Screening 1965 DTaP,Tdap,and Td Vaccines (1 - Tdap) 1982 Cervical Cancer Screening: P ap Smear 01/23/1984 Pneumococcal Vaccine: 50+ Ye ars (1 of 1 - PCV) 2013 Zoster Vaccines (1 of 2) 2013 COVID-19 Vaccine ( - 2023-2 5 season) 2024 Influenza Vaccine (#1) 2024 Colorectal Cancer Screening: Colonoscopy 04/28/2024 Depression Screening 04/28/2024 HIV Screening 04/28/2024 Hepatitis C Screening 04/28/2024 Social Influencers of Health Screening 04/28/2024 RSV Immunization Patients 60 + Years Old (1 - 1-dose 75+ series) 2038 HIB Vaccines Aged Out No longer eligi ble based on patient's age to complete this topic HPV Vaccines Aged Out No longer eligi ble based on patient's age to complete this topic Hepatitis A Vaccines Aged Out No long er eligible based on patient's age to complete this topic Hepatitis B Vaccines Aged Out No long er eligible based on patient's age to complete this topic IPV Vaccines Aged Out No longer eligi ble based on patient's age to complete this topic MMR Vaccines Aged Out No longer eligi ble based on patient's age to complete this topic Meningococcal ACWY Vaccine Aged Out N o longer eligible based on patient's age to complete this topic Meningococcal B Vacine Aged Out No lo nger eligible based on patient's age to complete this topic Pneumococcal Vaccine: Pediat rics (0 to 5 Years) and At-Risk Patients (6 to 64 Years) Aged Out No longer eligible b ased on patient's age to complete this topic RSV Immunization Patients Un jeff 20 months Aged Out No longer eligible b ased on patient's age to complete this topic Varicella Vaccines Aged Out No longer eligible based on patient's age to complete this topic
== END 2024-09-08 14:36 | disposition home or self-care (01) ==
PROVIDERS: PCP Internal Medicine; Visit Provider Nurse Practitioner Family
DX: Z01.818 Encounter for other preprocedural examination (principal); Z12.11 Encounter for screening for malignant neoplasm of colon
CPT/HCPCS: 99202

== ENCOUNTER → 2024-09-08 14:03 | Outpatient (BNVA) | payer OTHER, SELFPAY | PROVIDERS: PCP Internal Medicine; Visit Provider Nurse Practitioner Family | DX: Z01.818 Encounter for other preprocedural examination (principal); K21.9 Gastro-esophageal reflux disease without esophagitis; K59.01 Slow transit constipation; M62.838 Other muscle spasm | CPT/HCPCS: 99202 ==

== ENCOUNTER 2024-09-25 15:21 | Outpatient (AMB) | payer OTHER, SELFPAY ==
[2024-09-25 15:40] VITALS: BP 120/72; PULSE 70; RESP 16; TEMP 36.6; O2SAT 99; BMI 33.0
--- NOTE | 2024-09-25 15:40 | A.OFFPC_ITS ---
Vital Signs 09/25/24 15:40 Height 5 ft Weight 169 lb BMI 33.0 BP 120/72 Respiration 16 Pulse 70 Pulse Source Pulse Oximeter Temp 97.8 F Pulse Oximetry (%) 99 Oxygen Delivery Method Room Air Intake Visit Reasons: OBESITY 3 MONTH FOLLOW UP reji 07/06 Starting Sheet Tank Operator Required: No Accompanied by: Self / Same As Patient Allergies metronidazole Allergy (Unknown, Verified 09/25/24 15:41) hand tingling Sulfa (Sulfonamide Antibiotics) Allergy (Unknown, Verified 09/25/24 15:41) hand tingling Medication List - Last Reconciled 09/25/24 by Sherrie Gibson MD bisacodyl 10 mg (2 x 5 mg) PO DAILY cholecalciferol (vitamin D3) 50 mcg PO DAILY 90 days cyanocobalamin (vitamin B-12) 1,000 mcg PO DAILY 90 days levothyroxine 100 mcg PO DAILY meloxicam 7.5 mg PO DAILY polyethylene glycol 3350 (Miralax) 238 grams PO .QD 90 days psyllium husk (Fiber (psyllium husk)) 1.04 grams (2 x 0.52 gram) PO DAILY PRN tirzepatide (weight loss) (Zepbound) 2.5 mg (0.5 mL) subcut QWEEK Tobacco use date assessed: 09/25/24 Dental Screening Dental Screen Date: 09/25/24 Did you have a dental visit in the last 12 months?: No Did you have a dental problem in the last 6 months where you did not have access to dental care?: No [facility] Medical History Colon cancer screening Knee pain, bilateral Women's annual routine gynecological examination Encounter for screening examination for sexually transmitted disease Cervical cancer screening ASCUS of cervix with negative high risk HPV Contracture of finger joint Carpal tunnel syndrome of right wrist Hypothyroid Osteoarthritis Obesity (BMI 30-39.9) Thyroid nodule Vitamin D deficiency ASCUS (atypical squamous cells of undetermined significance) on gynecologic Papanicolaou smear complicating , antepartum Vitamin B12 deficiency GERD (gastroesophageal reflux disease) Asthma Anemia Surgical History History of tubal ligation History of tonsillectomy History of appendectomy Family History Father Alcohol abuse Mother Diabetes Hypertension Heart problem Brother Alive and well Brother History of open heart surgery Social History Household Members: None Housing: House Alcohol intake: never Patient Tobacco Use Status: Never used Tobacco e-Cigarette/Vaping Use: Never Used Second Hand Smoke Exposure: No service: No Current occupational status: employed Current occupation: [employer] Sexual orientation: Straight/Heterosexual Gender identity: Female Cognitive needs: No Hearing needs: No Vision needs: No Female Reproductive History Menstrual Age of Menarche: 10 Questionnaire PHQ-9 Over the last 2 weeks, how often have you been bothered by any of the following problems? 1. Little interest or pleasure in doing things: not at all 2. Feeling down, depressed, or hopeless: not at all 3. Trouble falling or staying asleep, or sleeping too much: not at all 4. Feeling tired or having little energy: not at all 5. Poor appetite or overeating: not at all 6. Feeling bad about yourself - or that you are a failure or have let yourself or your family down: not at all 7. Trouble concentrating on things, such as reading the newspaper or watching television: not at all 8. Moving or speaking so slowly that other people could have noticed. Or the opposite - being so fidgety or restless that you have been moving around a lot more than usual: not at all 9. Thoughts that you would be better off or of hurting yourself in some way: not at all Total score: 0 Source: Developed by Drs. Mason Guillen, Marita Buenrostro, Ryley Durand and colleagues, with an educational elian from [employer]. Thrive Questionnaire Date Thrive assessed: 09/25/24 I am a: Patient What is your living situation today?: I have a steady place to live Within the past 12 months, did the food you bought not last and you didn't have the money to get more?: Never true Within the past 12 months, did you worry whether your food would run out before you got money to buy more?: Never true Do you have trouble paying for medicines?: No Do you have trouble getting transportation to medical appointments?: No Do you have trouble paying your heating and electricity bill?: No Do you have trouble taking care of your child, family member or friend?: No Do you have trouble with day-to-day activities such as bathing, preparing meals, shopping, managing finances, etc.?: No Are you currently unemployed and looking for a job?: No Are you interested in more education?: No Please select the resources that you would like help with: None THRIVE Score: 0 AUDIT C Alcohol Use Questionnaire (AUDIT-C) 1. How often do you have a drink containing alcohol?: Never 3. How often do you have six or more drinks on one occasion?: Never Total Score: 0 FANTASMA-7 AMB Questionnaire FANTASMA-7 Date FANTASMA - 7 assessed: 09/25/24 Feeling nervous, anxious, or on edge: 0 = Not at all Not being able to stop or control worryin = Not at all Worrying too much about different things: 0 = Not at all Trouble relaxin = Not at all Being so restless that it is hard to sit still: 0 = Not at all Becoming easily annoyed or irritable: 0 = Not at all Feeling afraid as if something awful might happen: 0 = Not at all Total FANTASMA-7 score (0-4 normal; 5-9 mild; 10-14 moderate; 15-21 severe): 0 Source: Developed by Drs. Mason Guillen, Marita Buenrostro, Ryley Durand and colleagues, with an educational elian from [employer]. Physical exam (Primary Care) Vital Signs: Last Vital Signs Temp 97.8 F 09/25/24 15:40 Pulse 70 09/25/24 15:40 Resp 16 09/25/24 15:40 BP 120/72 09/25/24 15:40 Pulse Ox 99 09/25/24 15:40 Oxygen Delivery Method Room Air 09/25/24 15:40 BMI result Body Mass Index 33.0 Tobacco/Smoking Status: Tobacco use Status Tobacco use date assessed 09/25/24 09/25/24 15:42 Patient Tobacco Use Status Never used Tobacco 09/25/24 15:42 e-Cigarette/Vaping Use Never Used 09/25/24 15:42 PHQ-9: PHQ-9 Score PHQ-9: Total score 0 09/25/24 16:09 Thrive Assessment: Date of Thrive Assessment Date Thrive assessed 09/25/24 09/25/24 15:42 Const General: alert; No acute distress Eyes Conjunctivae: conjunctivae normal Resp Auscultation: clear to auscultation bilaterally Cardio Rate: regular rate Rhythm: regular rhythm GI Inspection: Yes normal to inspection Extrem General: Yes normal to inspection and No edema Results AMB Hemoglobin A1c AMB Hemoglobin A1c 6.2 % Last Edit by ESTEVAN Cloud on 09/25/24 16:00 Results Reviewed Results Reviewed: Laboratory Last Values Hgb A1c (Clinic) 6.2 % (4.0-6.0) H 09/25/24 15:55 Coding Level of Care Code Est Pt Level 4 (10691) Diagnoses GERD (gastroesophageal reflux disease) K21.9 Obesity (BMI 30-39.9) E66.9 Acquired hypothyroidism E03.9 Hypothyroidism type: acquired Impaired glucose tolerance R73.02 Impaired fasting blood sugar R73.01 Dry skin dermatitis L85.3 Assessment & Plan Assessment & Plan (1) GERD (gastroesophageal reflux disease): Code(s): K21.9 - Gastro-esophageal reflux disease without esophagitis Category: Medical Plan: Plan (2) Obesity (BMI 30-39.9): Code(s): E66.9 - Obesity, unspecified Category: Medical Plan: Diet and exercise (3) Hypothyroid: Code(s): E03.9 - Hypothyroidism, unspecified Category: Medical Qualifiers: Hypothyroidism type: acquired Qualified Code(s): E03.9 - Hypothyroidism, unspecified (4) Impaired glucose tolerance: Code(s): R73.02 - Impaired glucose tolerance (oral) Category: Medical Plan: Continue with thyroid medication but will need blood work (5) Impaired fasting blood sugar: Code(s): R73.01 - Impaired fasting glucose Category: Medical (6) Dry skin dermatitis: Code(s): L85.3 - Xerosis cutis Category: Medical Plan History of Present Illness The patient is a 59-year-old female presenting for a scheduled follow-up. Her medical history includes obesity, GERD, and hypothyroidism. She is compliant with her thyroid medication but requires routine blood work to monitor levels. She has impaired glucose tolerance with a current hemoglobin A1c of 6.2%. She maintains slight changes in physical activity and dietary habits to mitigate progression to diabetes. She experienced gastritis in March with normal ultrasounds. The patient has HPV and requires regular Pap exams for monitoring. She mentions ongoing issues with constipation and received guidance to adjust fiber intake. Upcoming plans include a colonoscopy based on symptoms and prior history. The patient reports joint issues possibly indicating arthritis affecting her stability when ambulating. She experiences dryness in her ears, managed with non-pharmaceutical moisturizers. Health Maintenance - Regular monitoring of thyroid function - Dietary management and exercise to control glucose levels and address obesity - Annual Pap smears for HPV monitoring - Continued management of gastroesophageal reflux with lifestyle modifications - Scheduled follow-up for colonoscopy - Increased fiber intake for preventative bowel health - Influenza and other relevant vaccinations are advised for seasonal health Social History - Regular walking for exercise, though limited in extent - Significant reduction in intake of pasta, bread, rice, and sugary foods - Increased water intake to maintain hydration - Abstains from soda consumption - Engages in consistent dietary monitoring to support weight management Review of Systems - Ear/Nose/Throat: Reports dryness in both ears. - Musculoskeletal: Reports joint issues and leg swelling which may indicate ar thritis; complaints of imbalance while walking. Physical Exam - Ears- Both ears appear dry externally, though the inner ear remains clear. Results - Labs: Hemoglobin A1c 6.2% as of April 2023; historical LDL cholesterol from April 2013 considered adequately managed. - Ultrasound: Normal findings except for gastritis diagnosis. Plan The patient's management plan includes continued treatment for obesity and GERD with recommendations for dietary and lifestyle modifications. Thyroid function will be monitored with an upcoming complete blood panel, although immediate action is not required. Maintenance of glycemic control through diet and exercise, with annual Pap smears for HPV monitoring, is emphasized. A colonoscopy is recommended based on her medical history. Specific interventions for constipation include increased fiber supplementation. Non-pharmaceutical options for potential arthritis will be considered given current symptomology. Surveillance for balance concerns will continue with regular monitoring and follow-ups as needed. Patient was informed and verbally consented to the use of an ambient scribe for clinic note documentation during this visit. Discussion Notes During our discussion, I emphasized the need for vigilant management of her hypothyroidism, GERD, and impaired glucose tolerance. We reviewed the management of her gastritis, confirming normal ultrasound results, with planned follow-up for a colonoscopy. The HPV positivity requires regular Pap smears, though routine vaccination is not indicated beyond this point due to age and exposure considerations. Joint concerns and balance issues suggest possible arthritis, warranting symptom monitoring. Adjusting fiber intake for constipation and addressing ear dryness with non-medicated means were recommended. She concurred with the outlined plans and options, understanding the rationale and necessity of each component. Patient Instructions - Maintain dietary practices to manage glucose levels; avoid sugars and processed carbohydrates. - Continue thyroid medication as prescribed; follow up for blood work in 2-3 months. - Increase fiber intake, up to five fiber capsules if needed, to address constipation. - Use baby oil for ear dryness if required; avoid additional medications unless informed. - Schedule and attend colonoscopy. - Regularly monitor balance concerns, and report any exacerbations. - Seek regular Pap smears for HPV monitoring. - Increase physical activity through more frequent or prolonged walking sessions. - Watch for contact with persons who might be ill during flu season. - Follow up with appointments as previously scheduled. Orders: Orders AMB Hemoglobin A1c Today R73.02 - Impaired glucose tolerance (oral) Lipid Panel 1 Month E78.00 - Pure hypercholesterolemia, unspecified, R73.01 - Impaired fasting glucose Thyroid Stimulating Hormone 1 Month R73.01 - Impaired fasting glucose Vitamin B12 and Folate 1 Month R73.01 - Impaired fasting glucose Vitamin D 25-OH Total 1 Month R73.01 - Impaired fasting glucose Complete Blood Count Auto Diff 1 Month R73.01 - Impaired fasting glucose Comprehensive Met. Panel 1 Month R73.01 - Impaired fasting glucose Free T4 (Free Thyroxine) 1 Month R73.01 - Impaired fasting glucose Hemoglobin A1c 1 Month R73.01 - Impaired fasting glucose Medications: New tirzepatide (weight loss) (Zepbound) for 4 weeks 2.5 mg (0.5 mL) subcut QWEEK 2 mL 0RF E66.9 - Obesity, unspecified
--- OUTSIDE RECORDS SUMMARY | 2024-09-25 16:57 | XMS_ITS | Clinical Summary ---
Author Organization [facility] [place] [address] Care Team Providers Care Ring Attacher Name Role Phone Unavailable Primary Care Provider [...]
== END 2024-09-25 16:26 | disposition home or self-care (01) ==
PROVIDERS: PCP Internal Medicine; Visit Provider Internal Medicine
DX: K21.9 Gastro-esophageal reflux disease without esophagitis (principal); E66.9 Obesity, unspecified; Z68.33 Body mass index [BMI] 33.0-33.9, adult; E03.9 Hypothyroidism, unspecified; R73.02 Impaired glucose tolerance (oral); R73.01 Impaired fasting glucose; L85.3 Xerosis cutis

== ENCOUNTER → 2024-09-25 15:21 | Outpatient (BNVA) | payer OTHER, SELFPAY | PROVIDERS: PCP Internal Medicine; Visit Provider Internal Medicine | DX: K21.9 Gastro-esophageal reflux disease without esophagitis (principal); E66.9 Obesity, unspecified; E03.9 Hypothyroidism, unspecified; R73.02 Impaired glucose tolerance (oral); R73.01 Impaired fasting glucose; L85.3 Xerosis cutis | CPT/HCPCS: 83036; 99212 ==

== ENCOUNTER 2024-11-04 10:24 | Outpatient (AMB) | payer OTHER, SELFPAY ==
--- NOTE | 2024-11-04 10:25 | MHC.OFFVIS ---
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 Instructor: Sports Instructor Present (Sonia) Accompanied by: Self / Same As Patient Allergies No Known Allergies Allergy (Verified 11/04/24 10:27) Medication List - Last Reconciled 11/04/24 by Amairani Jaime CNM bisacodyl 10 mg (2 x 5 mg) PO DAILY cholecalciferol (vitamin D3) 50 mcg PO DAILY 90 days cyanocobalamin (vitamin B-12) 1,000 mcg PO DAILY 90 days levothyroxine 100 mcg PO DAILY meloxicam 7.5 mg PO DAILY polyethylene glycol 3350 (Miralax) 238 grams PO .QD 90 days psyllium husk (Fiber (psyllium husk)) 1.04 grams (2 x 0.52 gram) PO DAILY PRN Is last menstrual period known: No Post menopausal: Yes Patient : No HPI HPI 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 She is sexually active but not that much. Her partner does not like condoms so she would like to get checked for everything. She thinks her periods went away sometime in her mid 50s. She is up-to-date on her mammograms and she sees her primary care provider regularly she has a colonoscopy coming up she does have issues with constipation but the Senokot that she uses works quite well she does get leg cramps at night that she mentioned that wake her up and she has to go walking to make them go away. PENDING SALE TO [facility] Medical History (Updated 11/04/24 @ 11:19 by Amairani Jaime CNM) Encounter for screening examination for sexually transmitted disease Colon cancer screening Knee pain, bilateral Women's annual routine gynecological examination Cervical cancer screening ASCUS of cervix with negative high risk HPV Contracture of finger joint Carpal tunnel syndrome of right wrist Hypothyroid Osteoarthritis Obesity (BMI 30-39.9) Thyroid nodule Vitamin D deficiency ASCUS (atypical squamous cells of undetermined significance) on gynecologic Papanicolaou smear complicating , antepartum Vitamin B12 deficiency GERD (gastroesophageal reflux disease) Asthma Anemia Surgical History History of tubal ligation History of tonsillectomy History of appendectomy Family History Father Alcohol abuse Mother Diabetes Hypertension Heart problem Brother Alive and well Brother History of open heart surgery Social History Household Members: None Housing: House Alcohol intake: never Patient Tobacco Use Status: Never used Tobacco e-Cigarette/Vaping Use: Never Used Second Hand Smoke Exposure: No service: No Current occupational status: employed Current occupation: [employer] Sexual orientation: Straight/Heterosexual Gender identity: Female Cognitive needs: No Hearing needs: No Vision needs: No Female Reproductive History Menstrual Age of Menarche: 10 Total pregnancies: 6 Full term: 4 Ab spontaneous: 2 Date of last pap smear: 10/17/23 (negative pap smear, +hpv) History of abnormal pap smear: Yes Date of Mammogram: 03/09/24 (bi rad 1) Physical Exam Vital Signs: Last Vital Signs BP 110/64 11/04/24 10:43 BMI result Body Mass Index 31.2 Const General: healthy appearing, comfortable, no acute distress, well developed and alert Nutritional Appearance: average body habitus Orientation/consciousness: patient oriented x3 Limitations: no limitations HEENT Head: Yes normocephalic Neck Neck: Yes normal visual inspection Chest Chest palpation & inspection: normal inspection of the chest Breast/axilla inspection: normal inspection of the breasts and normal inspection of the axillae Breast/axilla palpation: normal palpation of the breasts and normal palpation of the axillae Resp Effort & Inspection: normal respiratory effort GI Inspection: Yes normal to inspection, No Abdominal wall edema and No distended Palpation (GI): Soft to palpation and nontender Other: External exam within normal limits vagina is pink and moist cervix pink moist with very normal-appearing discharge. Anatomy and discharge do not appear consistent with postmenopausal changes and there is no atrophic changes visible. Well estrogenized. Cervix mobile nontender uterus midposition to anteverted mobile nontender not enlarged adnexa nontender good muscle tone with Kegel. General: Yes bladder normal to palpation External Female Exam: normal external appearance and normal appearance of the urethra Speculum Exam - Vagina: normal appearance of the vagina, normal palpation and normal vaginal discharge Speculum Exam - Cervix: normal appearance of the cervix, normal palpation and nontender Bimanual exam- vagina & uterus: normal bimanual exam, normal palpation, uterine size normal, bladder normal to palpation, consistency normal, normal palpation, uterine mobility normal, uterine shape normal, No Cervical tenderness present, non-tender and no cervical motion tenderness Bimanual Exam- Adnexa, other: normal adnexae, no masses, normal and No adnexal tenderness Neuro General: patient oriented x3 Results Reviewed Results Reviewed: Name: Megha Dixon Age/Sex: 58/F Attending: Amairani Jaime CNM : 1965 Submitted by: Amairani Jaime CNM Copies to: Sherrie Gibson MD MR #: [id number] Status: DEP REF Collected: 10/17/23 Location: [facility] Received: 10/18/23 Interpretation General Category: Negative for intraepithelial lesion/malignancy. Adequacy: Endocervical component absent. Interpretation: Negative for intraepithelial lesion/malignancy. Elevated estrogen for patient's age and history. HPV mRNA E6/E7: DETECTED This assay detects E6/E7 viral messenger RNA (mRNA) from 14 high-risk HPV types (16, 18, 31, 33, 35, 39, 45, 51, 52, 56, 58, 59, 66, 68) HPV Type 16 RNA: Not Detected HPV Type 18/45 RNA: Not Detected HPV testing performed by [facility], [place], [place]. See reference laboratory portion of the EMR for entire report. Clinical Information LMP: No menses Previous PAP test: 08/23/20, WNL Other history:ASCUS Material Received ThinPrep-Cervical Copies To Amairani Jaime CNM [address] [place] [address] [place] [address] Sherrie Gibson MD [address] [place] [address] [address] [place] [address] Patient: Megha Dixon Age/Sex: 58/F MR#: [id number] Page 1 of 2 Gynecologic Cytology [id number] Electronically Signed By: Michelle Berry 10/28/23 5026 The Pap Test is a screening procedure with the inherent possibility of both false negative and false positive results. Results should be interpreted in the context of historic and current clinical findings. Reliability of the Pap Test is enhanced by performing the test on a regular repetitive basis. Patient: Megha Dixon Age/Sex: 58/F MR#: [id number] Assessment & Plan Assessment & Plan (1) ASCUS of cervix with negative high risk HPV: Comment: 2014 and 2016 2019 Neg Co test ; 10/17/2023 shows positive HPV, Pap itself is negative shows elevated estrogen. Code(s): R87.610 - Atypical squamous cells of undetermined significance on cytologic smear of cervix (ASC-US) Category: Medical (2) Well woman exam with routine gynecological exam: Code(s): Z01.419 - Encounter for gynecological examination (general) (routine) without abnormal findings Category: Medical (3) Breast cancer screening: Code(s): Z12.39 - Encounter for other screening for malignant neoplasm of breast Category: Medical (4) Encounter for screening examination for sexually transmitted disease: Code(s): Z11.3 - Encounter for screening for infections with a predominantly sexual mode of transmission Category: Medical (5) Nocturnal leg cramps: Comment: She drinks a lot a water discussed stretches but also discussed trying magnesium 250 mg-(500mg prn) q.h.s. Code(s): G47.62 - Sleep related leg cramps Category: Medical Plan -----Discussed in this visit the following: healthy balanced diet, regular and consistent exercise, getting recommended health screens, doing the best she can for her particular health concerns, kegel exercises, pap smear screening and followup recommendations, mammography screening and SBE, normal changes in cycles in her life stage--- . She is up-to-date on all her screens and mammograms and following up with all of her provider's. She is basically doing very well taking care of herself. For the leg cramps I recommend trying the magnesium 250 mg discussed checking the size of the tablets in the bottle before she buys it to see if there too big to swallow and avoiding those particular brands. RTC 1 year Testing also ordered for STD screens. We will let her know about any positive test results. including the Pap smear. We did the Pap smear today because of the ASCUS in the past, and positive HPV last year. Orders: Orders Hepatitis B Surface Antigen Today G47.62 - Sleep related leg cramps, R87.610 - Atypical squamous cells of undetermined significance on cytologic smear of cervix (ASC-US), Z01.419 - Encounter for gynecological examination (general) (routine) without abnormal findings, Z11.3 - Encounter for screening for infections with a predominantly sexual mode of transmission, Z12.39 - Encounter for other screening for malignant neoplasm of breast Hepatitis C Antibody Today G47.62 - Sleep related leg cramps, R87.610 - Atypical squamous cells of undetermined significance on cytologic smear of cervix (ASC-US), Z01.419 - Encounter for gynecological examination (general) (routine) without abnormal findings, Z11.3 - Encounter for screening for infections with a predominantly sexual mode of transmission, Z12.39 - Encounter for other screening for malignant neoplasm of breast HIV Ab/Ag Today G47.62 - Sleep related leg cramps, R87.610 - Atypical squamous cells of undetermined significance on cytologic smear of cervix (ASC-US), Z01.419 - Encounter for gynecological examination (general) (routine) without abnormal findings, Z11.3 - Encounter for screening for infections with a predominantly sexual mode of transmission, Z12.39 - Encounter for other screening for malignant neoplasm of breast Syphilis Screen Today G47.62 - Sleep related leg cramps, R87.610 - Atypical squamous cells of undetermined significance on cytologic smear of cervix (ASC-US), Z01.419 - Encounter for gynecological examination (general) (routine) without abnormal findings, Z11.3 - Encounter for screening for infections with a predominantly sexual mode of transmission, Z12.39 - Encounter for other screening for malignant neoplasm of breast Coding Level of Care Code Est Pt Prev Care 40-64y(57411) Diagnoses ASCUS of cervix with negative high risk HPV R87.610 Well woman exam with routine gynecological exam Z01.419 Breast cancer screening Z12.39 Encounter for screening examination for sexually transmitted disease Z11.3 Nocturnal leg cramps G47.62
[2024-11-04 10:43] VITALS: BP 110/64; BMI 31.2
--- OUTSIDE RECORDS SUMMARY | 2024-11-04 12:10 | XMS_ITS | Clinical Summary ---
Author Organization [facility] [place] [address] Care Team Providers Care Bacon De Rinder Name Role Phone Unavailable Primary Care Provider [...] Vaccines (1 of 2) 2013 COVID-19 Vaccine (2023-2 5 season) 2024 Colorectal Cancer Screening: Colonoscopy 04/28/2024 Depression Screening 04/28/2024 HIV Screening 04/28/2024 Hepatitis C Screening 04/28/2024 Social Influencers of Health Screening 04/28/2024 Influenza Vaccine (Season Ended) 2025 RSV Immunization Adult Patie nts (1 - 1-dose 75+ series) 2038 HIB [...] age to complete this topic Meningococcal B Vaccine Aged Out No l onger eligible based on patient's age to complete [...]
== END 2024-11-04 13:07 | disposition home or self-care (01) ==
LOC: HO.HWSM 10:25
PROVIDERS: PCP Internal Medicine; Visit Provider Advanced Practice Midwife
DX: Z01.419 Encounter for gynecological examination (general) (routine) without abnormal findings (principal); R87.610 Atypical squamous cells of undetermined significance on cytologic smear of cervix (ASC-US); G47.62 Sleep related leg cramps
CPT/HCPCS: 99396; 99459

== ENCOUNTER 2024-11-04 10:24 | Outpatient (REF) | payer OTHER, SELFPAY ==
--- OUTSIDE RECORDS SUMMARY | 2024-11-04 16:04 | XMS_ITS | Clinical Summary ---
Author Organization [facility] [place] [address] Care Team Providers Care Timber Sprinkler Name Role Phone Unavailable Primary Care Provider [...]
== END 2024-11-04 10:25 | disposition home or self-care (01) ==
LOC: HO.LAB 10:24
PROVIDERS: PCP Internal Medicine; Visit Provider Advanced Practice Midwife
DX: Z13.89 Encounter for screening for other disorder (principal)

== ENCOUNTER 2024-11-04 11:20 | Outpatient (REF) | payer OTHER, SELFPAY ==
[2024-11-04 13:22] LABS: MANUAL DIFF FLAG NO
[2024-11-04 13:29] LABS: Basophils Percent Auto 0.7 % (0-2); Eosinophils Percent Auto 0.3 % (0-4); Hematocrit 36.9 % (37.0-47.0); Hemoglobin 12.4 g/dl (12.0-16.0); Imm Gran Abs Auto 0.02 X10*3/uL (0.00-0.03); Imm Gran Pct Auto 0.3 % (0.0-0.4); Lymphocytes Absolute Auto 1.2 X10*3/uL (1.2-4.9); Lymphocytes Percent Auto 20.4 % (20-40); Mean Corpuscular HGB Conc 33.6 g/dl (31.0-35.0); Mean Corpuscular Volume 89.3 fL (80.0-98.0); Mean Platelet Volume 9.9 fL (9.4-12.3); Monocytes Absolute Auto 0.3 X10*3/uL (0.1-1.2); Monocytes Percent Auto 5.7 % (2-11); Neutrophils Absolute Auto 4.3 x10*3/uL (2.0-8.3); Neutrophils Percent Auto 72.6 % (45-73); Platelet Count 271 X10*3/uL (160-400); Red Blood Count 4.13 X10*6/uL (4.20-5.50); Red Cell Distribution Width 12.5 % (11.0-16.0)
--- OUTSIDE RECORDS SUMMARY | 2024-11-04 13:45 | XMS_ITS | Clinical Summary ---
Author Organization [facility] [place] [address] Care Team Providers Care Student Finance Advisor Name Role Phone Unavailable Primary Care Provider [...]
[2024-11-04 13:53] LABS: Estimated Average Glucose 128 mg/dL; Hemoglobin A1C 140.9749 umol/L; Hemoglobin A1c % 6.1 % (<6.0)
[2024-11-04 14:07] LABS: Alanine Aminotransferase 20 U/L (0-31); Albumin Level 4.2 g/dL (3.5-5.0); Alkaline Phosphatase 101 U/L (39-117); Anion Gap 9 (12-20); Aspartate Amino Transferase 23 U/L (5-31); Bilirubin Total 0.5 mg/dL (0.0-1.0); Blood Urea Nitrogen 10 mg/dL (9-16); Calcium 9.4 mg/dL (8.4-10.2); Carbon Dioxide 28 mmol/L (22-29); Chloride 109 mmol/L (96-108); Cholesterol 145 mg/dL (<200); Estimated Glomerular Filt Rate > 60; Glucose Random 102 mg/dL (60-115); HDL Cholesterol 33 mg/dL (>40); LDL Cholesterol Calculated 93 mg/dL (<100); Sodium 142 mmol/L (135-145); Total Protein 7.1 g/dL (6.5-8.0); Triglycerides 96 mg/dL (<150)
[2024-11-04 14:11] LABS: Free T4 (Free Thyroxine) 1.47 ng/dL (0.71-1.85); Thyroid Stimulating Hormone 0.59 uIU/mL (0.32-4.0); Vitamin D 25-OH Total 49.5 ng/mL (>30)
[2024-11-04 14:28] LABS: Vitamin B12 1606 pg/mL (200-900)
[2024-11-05 09:06] LABS: Syphilis Screen Nonreactive (Nonreactive)
[2024-11-05 09:08] LABS: HBsAGNum1 0.28 S/CO (0.00-0.99); HIV AB/AG Nonreactive (Nonreactive); HIV Num 1 0.07 S/CO (0.00-0.99); Hepatitis B Surface Antigen Negative (Negative); ~HepC Num1 0.73 S/CO (0.00-0.79); ~Hepatitis C Antibody Nonreactive (Nonreactive)
== END 2024-11-04 11:21 | disposition home or self-care (01) ==
LOC: HO.HHCL 11:20
PROVIDERS: Internal Medicine; Visit Provider Advanced Practice Midwife
DX: Z01.419 Encounter for gynecological examination (general) (routine) without abnormal findings (principal); N89.8 Other specified noninflammatory disorders of vagina; Z20.2 Contact with and (suspected) exposure to infections with a predominantly sexual mode of transmission; R73.01 Impaired fasting glucose; R87.610 Atypical squamous cells of undetermined significance on cytologic smear of cervix (ASC-US); Z12.39 Encounter for other screening for malignant neoplasm of breast; Z11.3 Encounter for screening for infections with a predominantly sexual mode of transmission; G47.62 Sleep related leg cramps; E78.00 Pure hypercholesterolemia, unspecified
CPT/HCPCS: 36415; 80053; 80061; 81515; 82306; 82607; 82746; 83036; 84439; 84443; 85025; 86780; 86803; 87340; 87389; 87491; 87591; 87626; 88175; 99396; 99459

== ENCOUNTER 2024-11-04 13:25 | Outpatient (REF) | payer OTHER, SELFPAY ==
[2024-11-05 08:40] LABS: Bacterial Vaginosis PCR NEGATIVE (Negative); Candida Group PCR NOT DETECTED (Not Detect); Candida glab krusei PCR NOT DETECTED (Not Detect); Trichomonas vaginalis PCR NOT DETECTED (Not Detect)
[2024-11-05 09:12] LABS: CT PCR NOT DETECTED (Not Detect.); NG PCR NOT DETECTED (Not Detect.)
[2024-11-10 10:14] LABS: HPV Genotype 16 Negative (Negative); HPV Genotype 18 Negative (Negative); HPV High Risk Positive (Negative)
== END 2024-11-04 13:26 | disposition home or self-care (01) ==
LOC: HO.LNP 13:25
PROVIDERS: Visit Provider Advanced Practice Midwife
DX: Z13.89 Encounter for screening for other disorder (principal)
CPT/HCPCS: 81515; 87491; 87591; 87626; 88175

== ENCOUNTER 2024-11-18 13:28 | Outpatient (AMB) | payer OTHER, SELFPAY ==
--- NOTE | 2024-11-18 13:31 | MHC.OFFVISWM ---
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 Allergies No Known Allergies Allergy (Verified 11/04/24 10:27) Medication List - Last Reconciled 11/18/24 by LISA Combs bisacodyl 10 mg (2 x 5 mg) PO DAILY cholecalciferol (vitamin D3) 50 mcg PO DAILY 90 days cyanocobalamin (vitamin B-12) 1,000 mcg PO DAILY 90 days levothyroxine 100 mcg PO DAILY meloxicam 7.5 mg PO DAILY polyethylene glycol 3350 (Miralax) 238 grams PO .QD 90 days psyllium husk (Fiber (psyllium husk)) 1.04 grams (2 x 0.52 gram) PO DAILY PRN HPI Comments Details: Pt is here to start the [facility] Weight Management medical weight loss program. Her goal is to lose weight and achieve a healthy lifestyle. She reports first being concerned about her weight about 5 years ago, highest weight to date was 165.2. Current weight is 165.2 pounds with a BMI of 32.2. She has tried multiple methods of weight loss including nothing without permanent results. She lives with her dog. 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 Patient was prescribed Zepbound by her primary care physician back in September although was denied by her insurance company. She was approved for Loylap however it was unavailable at the pharmacy. After discussing possible side effects, she does not wish to start this medication at this time. She wakes at:?8 am, and goes to bed at?11 pm. Dinner is at 5-6 pm. Breakfast: cereal (glenny charms w whole milk) or pancakes AM snack: cupcake Lunch: skip PM snack: chips w soda Dinner: rice and beans and meat or ribs w irish fries After dinner: chips Other snacks: cake Liquids: 48-64 oz water, caffeine free coke, 12-24 oz per day, no juice Alcohol/marijuana/tobacco intake: none Exercise: none, could join a gym GERD score: 7 MARITA score: 0 ESS score: 4 QOL score: 48 [facility] Medical History Encounter for screening examination for sexually transmitted disease Colon cancer screening Knee pain, bilateral Women's annual routine gynecological examination Cervical cancer screening ASCUS of cervix with negative high risk HPV Contracture of finger joint Carpal tunnel syndrome of right wrist Hypothyroid Osteoarthritis Obesity (BMI 30-39.9) Thyroid nodule Vitamin D deficiency ASCUS (atypical squamous cells of undetermined significance) on gynecologic Papanicolaou smear complicating , antepartum Vitamin B12 deficiency GERD (gastroesophageal reflux disease) Asthma Anemia Surgical History History of tubal ligation History of tonsillectomy History of appendectomy Family History Father Alcohol abuse Mother Diabetes Hypertension Heart problem Brother Alive and well Brother History of open heart surgery Social History Household Members: None Housing: House Alcohol intake: never Patient Tobacco Use Status: Never used Tobacco e-Cigarette/Vaping Use: Never Used Second Hand Smoke Exposure: No service: No Current occupational status: employed Current occupation: [employer] Sexual orientation: Straight/Heterosexual Gender identity: Female Cognitive needs: No Hearing needs: No Vision needs: No Female Reproductive History Menstrual Age of Menarche: 10 Physical Exam Const General: cooperative, healthy appearing and no acute distress Orientation/consciousness: patient oriented x3 HEENT Head: Yes normal to inspection Ears: hearing grossly normal bilaterally General nose exam: Normal external nose present Face and sinus: Yes normal facial exam Eyes General: appearance normal, both eyes and all related structures Resp Effort & Inspection: normal respiratory effort Auscultation: clear to auscultation bilaterally Cardio Rate: regular rate Rhythm: regular rhythm Heart sounds: S1 normal heart sound present and S2 normal heart sound present GI Inspection: Yes normal to inspection, No distended and Yes obesity Palpation (GI): Soft to palpation, nontender and no guarding Auscultation: normal bowel sounds Skin General skin exam: no rashes or lesions noted Neuro General: patient oriented x3 Extrem General: No edema Psych Appearance: grossly normal Mental Status: mental status grossly normal Speech and movement: Normal speech and movement present Affect: normal affect Attitude: cooperative Assessment & Plan Assessment & Plan (1) Obesity (BMI 30-39.9): Code(s): E66.9 - Obesity, unspecified Category: Medical Plan: Discussion was had with the patient regarding her current behaviors including excessive sugar intake, carbohydrate intake, soda intake, lack of exercise. She was given information regarding the right BMI sameer. she was given my cell phone number so that she may communicate on a weekly basis her weight is and text with any questions or concerns. Encouraged to by a body composition scale She recently had lab work and this is being managed by her primary care physician. She does not wish to start GLP 1 medications at this time given potential impact of constipation. Discussed the importance of exercise. She states that she can join a gym, [employer], near her home. Discussed the goal of monitoring calories burned at the gym on cardio equipment such as treadmill, stationary bike, elliptical, rowing machine. Goal is burning 300 calories per day, 7 days a week or 2000 calories per week. Encouraged to stretch before and after each exercise session. Encouraged to ask questions from the marketing sales manager of the gym if she is unaware of how to use the machines. We will have her return to the office in approximately 6 weeks.
[2024-11-18 13:43] VITALS: BP 148/76; PULSE 66; TEMP 36.4; O2SAT 97; BMI 32.3
--- OUTSIDE RECORDS SUMMARY | 2024-11-18 14:48 | XMS_ITS | Clinical Summary ---
Author Organization [facility] [place] [address] Care Team Providers Care Telegraph Equipment Maintainer Name Role Phone Unavailable Primary Care Provider [...]
== END 2024-11-18 14:19 | disposition home or self-care (01) ==
LOC: HO.HBS 13:29
PROVIDERS: PCP Internal Medicine; Visit Provider Physician Assistant Surgical
DX: E66.9 Obesity, unspecified (principal); E66.811 Obesity, class 1; Z68.32 Body mass index [BMI] 32.0-32.9, adult
CPT/HCPCS: 99204

== ENCOUNTER → 2024-11-18 13:28 | Outpatient (BNVA) | payer OTHER, SELFPAY | PROVIDERS: PCP Internal Medicine; Visit Provider Physician Assistant Surgical | DX: E66.9 Obesity, unspecified (principal); Z68.32 Body mass index [BMI] 32.0-32.9, adult | CPT/HCPCS: 99202 ==

== ENCOUNTER 2024-12-08 10:17 | Outpatient (AMB) | payer OTHER, SELFPAY ==
--- NOTE | 2024-12-08 10:18 | MHC.OFFVIS ---
Vital Signs 12/08/24 10:33 Height 5 ft Weight 165 lb BMI 32.2 BP 114/66 Blood Pressure Location Rt brachial Position Sitting Pulse 80 Pulse Source Pulse Oximeter Pulse Oximetry (%) 99 Oxygen Delivery Method Room Air Intake Visit Reasons: CIC Intake Note: ESTABLISHED PATIENT for mgmt of CIC. Revisit colo discussion. CC; Pt denies any GI sx or concerns at this time. Comments that the rx are currently effective for tx of condition(s). Military Technician Required: No Accompanied by: Self / Same As Patient Allergies No Known Allergies Allergy (Verified 12/08/24 10:23) HPI HPI CIC: Details: LAST VISIT Colon cancer screening Plan Patient was encouraged to increase fluid intake and activity to promote better bowel motility. Patient can take Dulcolax 2 tablets daily. Discussed with patient prep. What to expect before during and after procedure discussed with patient. Stressed the importance of good bowel prep and clear liquid diet day before procedure. Message sent to surgical schedulers to book procedure for patient. Patient will see me in 3 months to re-evaluate. She is agreeable to this plan and verbalizes understanding of instructions. She was given the opportunity to ask questions and all questions answered. ? Thank you for allowing me to participate in her care Medications New polyethylene glycol 3350 (Miralax) As directed by gastroenterology department at [facility] 238 grams PO ONCE 238 grams 0RF Z12.11 Changed Changed From bisacodyl 10 mg (2 x 5 mg) PO DAILY PRN 30 tabs 0RF constipation K59.01 Changed To bisacodyl 10 mg (2 x 5 mg) PO DAILY 180 tabs 3RF constipation K59.01 Changed From psyllium husk 1.04 grams (2 x 0.52 gram) PO DAILY PRN 90 caps 3RF constipation K59.00 Changed To psyllium husk (Fiber (psyllium husk)) 1.04 grams (2 x 0.52 gram) PO DAILY PRN 90 caps 3RF constipation K59.00 Discontinued polyethylene glycol 3350 Discontinued Reason: Doctor's Order 17 grams PO BID 30 ea 0RF constipation K59.01 TODAY'S VISIT Patient is here today for follow-up and to discuss again going for colonoscopy. Patient reports that she is moving her bowels better now that she is taking Dulcolax. Patient denies any issues with anesthesia in the past. Denies any history of sleep apnea. Not on any anticoagulation medication. Patient denies any dyspepsia, dysphagia or odynophagia. Patient denies any melena hematochezia. [facility] Medical History Encounter for screening examination for sexually transmitted disease Colon cancer screening Knee pain, bilateral Women's annual routine gynecological examination Cervical cancer screening ASCUS of cervix with negative high risk HPV Contracture of finger joint Carpal tunnel syndrome of right wrist Hypothyroid Osteoarthritis Obesity (BMI 30-39.9) Thyroid nodule Vitamin D deficiency ASCUS (atypical squamous cells of undetermined significance) on gynecologic Papanicolaou smear complicating , antepartum Vitamin B12 deficiency GERD (gastroesophageal reflux disease) Asthma Anemia Surgical History History of tubal ligation History of tonsillectomy History of appendectomy Family History Father Alcohol abuse Mother Diabetes Hypertension Heart problem Brother Alive and well Brother History of open heart surgery Social History Household Members: None Housing: House Alcohol intake: never Patient Tobacco Use Status: Never used Tobacco e-Cigarette/Vaping Use: Never Used Second Hand Smoke Exposure: No service: No Current occupational status: employed Current occupation: [employer] Sexual orientation: Straight/Heterosexual Gender identity: Female Cognitive needs: No Hearing needs: No Vision needs: No Female Reproductive History Menstrual Age of Menarche: 10 Review of Systems Const Denies weight gain and Denies weight loss ENT Reports no additional complaints, Denies dysphagia and Denies odynophagia Card Reports no additional complaints Resp Reports no additional complaints GI Denies abdominal pain, Denies belching, Denies melena, Denies bloating, Denies change in bowel habits, Denies dysphagia, Denies excessive flatus, Denies dyspepsia, Denies heartburn, Denies diarrhea, Denies loose stools, Denies nausea, Denies odynophagia and Denies vomiting Musc Reports no additional complaints Neuro Reports no additional complaints Psych Reports no additional complaints Endo Reports no additional complaints Physical Exam Vital Signs: Last Vital Signs Pulse 80 12/08/24 10:33 BP 114/66 12/08/24 10:33 Pulse Ox 99 12/08/24 10:33 Oxygen Delivery Method Room Air 12/08/24 10:33 BMI result Body Mass Index 32.2 Const General: healthy appearing, no acute distress and well developed Nutritional Appearance: well nourished Orientation/consciousness: patient oriented x3 Resp Effort & Inspection: normal respiratory effort, able to speak in complete sentences, no tracheal deviation and symmetric chest movement Auscultation: clear to auscultation bilaterally Cardio Rate: regular rate GI Inspection: Yes normal to inspection and No distended Palpation (GI): Soft to palpation, not firm, nontender and No hepatosplenomegaly present Auscultation: normal bowel sounds General: Yes no CVA tenderness Back/Spine/Pelvis Back: no CVA tenderness Skin General skin exam: elasticity normal, turgor normal and dry skin Neuro General: patient oriented x3 Psych Appearance: grossly normal Mental Status: mental status grossly normal Assessment & Plan Assessment & Plan (1) Colon cancer screening: Code(s): Z12.11 - Encounter for screening for malignant neoplasm of colon Category: Medical (2) GERD (gastroesophageal reflux disease): Code(s): K21.9 - Gastro-esophageal reflux disease without esophagitis Category: Medical Qualifiers: Esophagitis presence: without esophagitis Qualified Code(s): K21.9 - Gastro-esophageal reflux disease without esophagitis Plan Patient reports of occasional acid reflux. Avoid dietary triggers in late night snacking. Patient will continue taking Dulcolax. Patient was encouraged to take it daily week before procedure to ensure that she has a good prep. What to expect before during and after procedure discussed patient. Stressed the importance of good bowel prep and clear liquid diet day before procedure. I will see her after the procedure, sooner on as needed basis. She is agreeable to this plan and verbalizes understanding of instructions. She was given the opportunity to ask questions all questions answered. Thank you for allowing me to participate in her care Medications: New polyethylene glycol 3350 (Miralax) As directed by gastroenterology department at [facility] 238 grams PO ONCE 238 grams 0RF Z12.11 - Encounter for screening for malignant neoplasm of colon Coding Level of Care Code Est Pt Level 3 (65795) Diagnoses Colon cancer screening Z12.11 Gastroesophageal reflux disease without esophagitis K21.9 Esophagitis presence: without esophagitis Time Spent (min) 30 Comment 20 minutes spent with patient and additional 10 minutes spent reviewing her records
[2024-12-08 10:33] VITALS: BP 114/66; PULSE 80; O2SAT 99; BMI 32.2
--- OUTSIDE RECORDS SUMMARY | 2024-12-08 11:28 | XMS_ITS | Clinical Summary ---
Author Organization [facility] [place] [address] Care Team Providers Care Thin Film Technician Name Role Phone Unavailable Primary Care Provider [...]
== END 2024-12-08 10:57 | disposition home or self-care (01) ==
LOC: HO.HGI 10:18
PROVIDERS: PCP Internal Medicine; Visit Provider Nurse Practitioner Family
DX: Z01.818 Encounter for other preprocedural examination (principal); Z12.11 Encounter for screening for malignant neoplasm of colon; K59.04 Chronic idiopathic constipation; K21.9 Gastro-esophageal reflux disease without esophagitis
CPT/HCPCS: 99213

== ENCOUNTER → 2024-12-08 10:17 | Outpatient (BNVA) | payer OTHER, SELFPAY | PROVIDERS: PCP Internal Medicine; Visit Provider Nurse Practitioner Family | DX: Z12.11 Encounter for screening for malignant neoplasm of colon (principal); K21.9 Gastro-esophageal reflux disease without esophagitis | CPT/HCPCS: 99212 ==

== ENCOUNTER 2024-12-10 08:20 | Outpatient (AMB) | payer OTHER, SELFPAY ==
[2024-12-10 08:23] VITALS: BP 112/72; BMI 32.2
--- NOTE | 2024-12-10 08:23 | MHC.OFFVIS ---
Vital Signs 12/10/24 08:23 Height 5 ft Weight 165 lb BMI 32.2 BP 112/72 Intake Visit Reasons: Colposcopy Allergies No Known Allergies Allergy (Verified 12/08/24 10:23) HPI Comments Details: Presenting referred from Amairani Jaime CNM regarding abnormal Pap smear showing ASCUS HPV high-risk positive, HPV 16/18 negative [facility] Medical History Encounter for screening examination for sexually transmitted disease Colon cancer screening Knee pain, bilateral Women's annual routine gynecological examination Cervical cancer screening ASCUS of cervix with negative high risk HPV Contracture of finger joint Carpal tunnel syndrome of right wrist Hypothyroid Osteoarthritis Obesity (BMI 30-39.9) Thyroid nodule Vitamin D deficiency ASCUS (atypical squamous cells of undetermined significance) on gynecologic Papanicolaou smear complicating , antepartum Vitamin B12 deficiency GERD (gastroesophageal reflux disease) Asthma Anemia Surgical History History of tubal ligation History of tonsillectomy History of appendectomy Family History Father Alcohol abuse Mother Diabetes Hypertension Heart problem Brother Alive and well Brother History of open heart surgery Social History Household Members: None Housing: House Alcohol intake: never Patient Tobacco Use Status: Never used Tobacco e-Cigarette/Vaping Use: Never Used Second Hand Smoke Exposure: No service: No Current occupational status: employed Current occupation: [employer] Sexual orientation: Straight/Heterosexual Gender identity: Female Cognitive needs: No Hearing needs: No Vision needs: No Female Reproductive History Menstrual Age of Menarche: 10 Review of Systems Const All systems reviewed & are unremarkable except as noted in HPI and below Reports as per HPI and Reports no additional complaints GI Reports no additional complaints Reports no additional complaints Physical Exam Vital Signs: Last Vital Signs BP 112/72 12/10/24 08:23 BMI result Body Mass Index 32.2 Office Procedures Colposcopy Colposcopy: Pre-Procedure Counseling: Before beginning the procedure, I conducted comprehensive counseling with the patient. We thoroughly discussed the procedure itself, including its details, alternatives, and all associated risks. This included but not limited to the following complications such as bleeding, infection, and injury to the vagina, bladder, and vessels, as well as the potential need for transfusion with all its associated risks. Subsequently, the patient sign the consent. Pap smear result: Ascus HPV high-risk positive, HPV 16/18 negative. Procedure: During the procedure, the following steps were performed: A speculum was inserted, and acetic acid was applied. Colposcopy was conducted, allowing visualization of the transformation zone. Acetowhite lesions were identified at the 5+ 6+ 7 o'clock position. Cervical biopsies were obtained from the 5+ 6+ 7 o'clock position, followed by an endocervical curettage (ECC). Vaginoscopy of the upper vagina revealed no evidence of aceto-white lesions. Hemostasis was achieved using Monsel solution, and the patient tolerated the procedure well. Post-Procedure Instructions: The patient was advised to promptly contact the office or the after hours answering service or go to the emergency room if experiencing a temperature exceeding 100.4?F, abdominal pain, nausea/vomiting, or bleeding. Additionally, the patient was instructed to abstain from vaginal intercourse and bathtub use. The patient confirmed understanding of these instructions. Discharge Instructions: The patient was instructed to schedule a follow-up appointment in 2 weeks for further evaluation and management. Please note that this note was generated using a voice recognition program, and errors may have occurred during script writer. [id number] of cervix including upper vagina with biopsy and ECC Procedure code (CPT) selection complete Assessment & Plan Assessment & Plan (1) ASCUS with positive high risk HPV cervical: Code(s): R87.610 - Atypical squamous cells of undetermined significance on cytologic smear of cervix (ASC-US); R87.810 - Cervical high risk human papillomavirus (HPV) DNA test positive Category: Medical Plan: Discussed with the patient the result of her abnormal pap, its significance, risk of progression, persistence, and regression. the false positive/negative rate of a Pap smear as a screening test in detecting cervical cancer and the indication for a diagnostic test -colposcopy, biopsy, endocervical curettage. The patient verbalized understanding and agreed with the plan, all questions answered. Colpo biopsy ECC done, see procedure note Orders: Orders AMB Colposcopy Today R87.610 - Atypical squamous cells of undetermined significance on cytologic smear of cervix (ASC-US), R87.810 - Cervical high risk human papillomavirus (HPV) DNA test positive Coding Level of Care Code Procedure Only Diagnoses ASCUS with positive high risk HPV cervical R87.610; R87.810 CPT Codes Colposcopy - CPT: 90956-Ocgdylpip of cervix including upper vagina with biopsy and ECC ([id number])
--- OUTSIDE RECORDS SUMMARY | 2024-12-10 08:31 | XMS_ITS | Clinical Summary ---
Author Organization [facility] it Address [address] [place] [address] Care Team Providers Care Coiled Tubing Operator Name Role Phone Unavailable Primary Care Provider [...]
== END 2024-12-10 08:49 | disposition home or self-care (01) ==
LOC: HO.HWS 08:21
PROVIDERS: PCP Internal Medicine; Visit Provider Obstetrics & Gynecology
DX: R87.610 Atypical squamous cells of undetermined significance on cytologic smear of cervix (ASC-US) (principal); R87.810 Cervical high risk human papillomavirus (HPV) DNA test positive
CPT/HCPCS: 57454

== ENCOUNTER 2024-12-10 08:20 | Outpatient (REF) | payer OTHER, SELFPAY ==
--- OUTSIDE RECORDS SUMMARY | 2024-12-10 09:03 | XMS_ITS | Clinical Summary ---
Author Organization [facility] it Address [address] [place] [address] Care Team Providers Care Production Sound Mixer Name Role Phone Unavailable Primary Care Provider [...]
== END 2024-12-10 08:21 | disposition home or self-care (01) ==
LOC: HO.LNP 08:20
PROVIDERS: PCP Internal Medicine; Visit Provider Obstetrics & Gynecology
DX: R87.810 Cervical high risk human papillomavirus (HPV) DNA test positive (principal); R87.610 Atypical squamous cells of undetermined significance on cytologic smear of cervix (ASC-US)
CPT/HCPCS: 57454; 88305

== ENCOUNTER 2024-12-31 13:22 | Outpatient (AMB) | payer OTHER, SELFPAY ==
--- NOTE | 2024-12-31 13:28 | MHC.OFFVISWM ---
VS Expanded 12/31/24 13:36 BP 135/71 Blood Pressure Location Rt brachial Blood Pressure Position Sitting Pulse 92 Pulse Source Pulse Oximeter Temp 97 F Temperature Source Temporal Artery Scan Pulse Oximetry 96 Oxygen Delivery Method Room Air Height 5 ft Weight 167 lb BMI 32.6 Body Fat % 42.3 Body Fat Mass 70.6 Fat Free Mass 96.4 Visceral Fat Rating 11.0 Body Water % 40.8 Body Water Mass 68.2 Muscle Mass/Score 91.4 Basal Metabolic Rate/Score 1,341 Intake Visit Reasons: OV F/U MWL Director Marketing Analytics Required: No Allergies No Known Allergies Allergy (Verified 12/08/24 10:23) Medication List - Last Reconciled 12/31/24 by LISA Combs bisacodyl 10 mg (2 x 5 mg) PO DAILY calcipotriene 0.005% topical cholecalciferol (vitamin D3) 50 mcg PO DAILY 90 days cyanocobalamin (vitamin B-12) 1,000 mcg PO DAILY 90 days levothyroxine 100 mcg PO DAILY meloxicam 7.5 mg PO DAILY polyethylene glycol 3350 (Miralax) 238 grams PO ONCE polyethylene glycol 3350 (Miralax) 238 grams PO .QD 90 days psyllium husk (Fiber (psyllium husk)) 1.04 grams (2 x 0.52 gram) PO DAILY PRN tapinarof 1% (Vtama) appl topical DAILY HPI Comments Details: Pt returns to the [facility] Weight Management medical weight loss program. Her goal is to lose weight and achieve a healthy lifestyle. She reports first being concerned about her weight about 5 years ago, highest weight to date was 165.2. She was seen initially on 11/18/2024. Weight at that time was 165.2 pounds with a BMI of 32.2. Weight today is 167 lb with a BMI of 32.6. She has tried multiple methods of weight loss including nothing without permanent results. She lives with her dog. 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 Patient was prescribed Zepbound by her primary care physician back in September although was denied by her insurance company. She was approved for [employer] however it was unavailable at the pharmacy. After discussing possible side effects, she does not wish to start this medication at this time. She states that she started the right BMI sameer and has been following her meal plan. She has not however been measuring her food quantity and she was not able to accurately recount her meal plan She wakes at:?8 am, and goes to bed at?11 pm. Dinner is at 5-6 pm. eggs/veg salad and protein drink at lunch granola bar rice, beans, pork chop Liquids: 64 oz water Alcohol/marijuana/tobacco intake: none Exercise: walking outside 30 min 5 days per week [facility] Medical History Encounter for screening examination for sexually transmitted disease Colon cancer screening Knee pain, bilateral Women's annual routine gynecological examination Cervical cancer screening ASCUS of cervix with negative high risk HPV Contracture of finger joint Carpal tunnel syndrome of right wrist Hypothyroid Osteoarthritis Obesity (BMI 30-39.9) Thyroid nodule Vitamin D deficiency ASCUS (atypical squamous cells of undetermined significance) on gynecologic Papanicolaou smear complicating , antepartum Vitamin B12 deficiency GERD (gastroesophageal reflux disease) Asthma Anemia Surgical History History of tubal ligation History of tonsillectomy History of appendectomy Family History Father Alcohol abuse Mother Diabetes Hypertension Heart problem Brother Alive and well Brother History of open heart surgery Social History Household Members: None Housing: House Alcohol intake: never Patient Tobacco Use Status: Never used Tobacco e-Cigarette/Vaping Use: Never Used Second Hand Smoke Exposure: No service: No Current occupational status: employed Current occupation: [employer] Sexual orientation: Straight/Heterosexual Gender identity: Female Cognitive needs: No Hearing needs: No Vision needs: No Female Reproductive History Menstrual Age of Menarche: 10 Physical Exam Vital Signs: Last Vital Signs Temp 97 F 12/31/24 13:36 Pulse 92 12/31/24 13:36 BP 135/71 12/31/24 13:36 Pulse Ox 96 12/31/24 13:36 Oxygen Delivery Method Room Air 12/31/24 13:36 BMI result Body Mass Index 32.6 Const General: healthy appearing and no acute distress Resp Effort & Inspection: normal respiratory effort Auscultation: clear to auscultation bilaterally Cardio Rate: regular rate Rhythm: regular rhythm GI Auscultation: normal bowel sounds Extrem General: Yes normal to inspection Assessment & Plan Assessment & Plan (1) Obesity (BMI 30-39.9): Code(s): E66.9 - Obesity, unspecified Category: Medical Plan: Patient has not been following the meal plan accurately. Discussed the importance of following it exactly. Discussed the importance of joining a gym and buying a body composition scale. She has not communicated her weight measurements weekly. She has not text for any support. She states that her insurance will cover the cost of a gym, by 50%. She states she is going to join. Discussed tracking her calories while walking and goal of burning 300 per day. We will have her return to the office in a month. Encouraged to text weights weekly and text with any questions or concerns
[2024-12-31 13:36] VITALS: BP 135/71; PULSE 92; TEMP 36.1; O2SAT 96; BMI 32.6
--- OUTSIDE RECORDS SUMMARY | 2024-12-31 15:35 | XMS_ITS | Clinical Summary ---
Author Organization [facility] [facility] [place] [address] Care Team Providers Care Lifts And Cranes Inspector Name Role Phone Unavailable Primary Care Provider [...]
== END 2024-12-31 13:51 | disposition home or self-care (01) ==
LOC: HO.HBS 13:23
PROVIDERS: PCP Internal Medicine; Visit Provider Physician Assistant Surgical
DX: E66.9 Obesity, unspecified (principal); Z68.32 Body mass index [BMI] 32.0-32.9, adult
CPT/HCPCS: 99213

== ENCOUNTER → 2024-12-31 13:22 | Outpatient (BNVA) | payer OTHER, SELFPAY | PROVIDERS: PCP Internal Medicine; Visit Provider Physician Assistant Surgical | DX: Z71.82 Exercise counseling (principal); Z71.3 Dietary counseling and surveillance; E66.9 Obesity, unspecified | CPT/HCPCS: 99212 ==

== ENCOUNTER 2025-01-08 07:45 | Day surgery (SDC) | payer OTHER, SELFPAY ==
--- OUTSIDE RECORDS SUMMARY | 2024-12-30 17:01 | XMS_ITS | Clinical Summary ---
Author Organization [facility] [place] [address] Care Team Providers Care Photo Checker And Assembler Name Role Phone Unavailable Primary Care Provider [...]
[2025-01-06 11:30] VITALS: BMI 32.2
--- NOTE | 2025-01-06 14:45 | P.CONAN_ITS ---
Documented by User: Kelly Perea NP 01/06/25 14:46 HPI - Anesthesia Eval Consult details Narrative: 59yo F for Colonoscopy PMFSH Active Problems Active Problems: All Active Problems ASCUS with positive high risk HPV cervical (Acute) Nocturnal leg cramps (Acute) Encounter for screening examination for sexually transmitted disease (Acute) Breast cancer screening (Acute) Well woman exam with routine gynecological exam (Acute) Dry skin dermatitis (Acute) Impaired fasting blood sugar (Acute) Muscle spasm (Acute) Urinary tract infection (Acute) Arthritis of right wrist (Acute) Osteoarthritis of left knee (Acute) Wrist pain, right (Acute) Knee pain, left (Acute) Colon cancer screening (Acute) Osteoarthritis of knees, bilateral (Acute) Constipation (Acute) ASCUS of cervix with negative high risk HPV (Acute) GERD (gastroesophageal reflux disease) (Acute) Low back pain (Acute) Bilateral wrist pain (Acute) Rhinitis medicamentosa (Acute) Annual physical exam (Acute) Epigastric pain (Acute) Sternal pain (Acute) Generalized anxiety disorder (Acute) Vitamin B12 deficiency (Acute) Vitamin D deficiency (Acute) DDD (degenerative disc disease), lumbar (Acute) Candidal intertrigo (Acute) Impaired glucose tolerance (Acute) Hypothyroid (Acute) Osteoarthritis (Acute) Obesity (BMI 30-39.9) (Acute) GERD (gastroesophageal reflux disease) (Acute) Past Medical History Medical History Encounter for screening examination for sexually transmitted disease Colon cancer screening Knee pain, bilateral Women's annual routine gynecological examination Cervical cancer screening ASCUS of cervix with negative high risk HPV Contracture of finger joint Carpal tunnel syndrome of right wrist Hypothyroid Osteoarthritis Obesity (BMI 30-39.9) Thyroid nodule Vitamin D deficiency ASCUS (atypical squamous cells of undetermined significance) on gynecologic Papanicolaou smear complicating , antepartum Vitamin B12 deficiency GERD (gastroesophageal reflux disease) Asthma Anemia Family History Family History Father Alcohol abuse Mother Diabetes Hypertension Heart problem Brother Alive and well Brother History of open heart surgery Surgical History Surgical History History of tubal ligation History of tonsillectomy History of appendectomy Social History Social History Household Members: None Housing: House Alcohol intake: never Patient Tobacco Use Status: Never used Tobacco e-Cigarette/Vaping Use: Never Used Second Hand Smoke Exposure: No Advance Directives: No Advance Directives Information Provided: Yes service: No Current occupational status: employed Current occupation: [id number] Sexual orientation: Straight/Heterosexual Gender identity: Female Cognitive needs: No Hearing needs: No Vision needs: No Meds Allergies Allergy/AdvReac Type Severity Reaction Status Date / Time No Known Allergies Allergy Verified 12/08/24 10:23 Home Medications ?Medication ?Instructions ?Recorded ?Confirmed ?Last Taken ?Type calcipotriene 0.005 % scalp topical 12/08/24 12/31/24 Unknown History solution tapinarof 1 % topical cream (Vtama) appl topical DAILY 12/08/24 12/31/24 Unknown History Exam Height,Weight and Vital Signs: Height 5 ft Weight 74.843 kg Assessment and Plan Assessment Anesthesia Assessment: Chart Reviewed Documented by User: Nba Wood MD 01/08/25 08:10 [facility] Past Medical History Medical History Encounter for screening examination for sexually transmitted disease Colon cancer screening Knee pain, bilateral Women's annual routine gynecological examination Cervical cancer screening ASCUS of cervix with negative high risk HPV Contracture of finger joint Carpal tunnel syndrome of right wrist Hypothyroid Osteoarthritis Obesity (BMI 30-39.9) Thyroid nodule Vitamin D deficiency ASCUS (atypical squamous cells of undetermined significance) on gynecologic Papanicolaou smear complicating , antepartum Vitamin B12 deficiency GERD (gastroesophageal reflux disease) Asthma Anemia Family History Family History Father Alcohol abuse Mother Diabetes Hypertension Heart problem Brother Alive and well Brother History of open heart surgery Family history of problems with anesthesia: No Surgical History Surgical History History of tubal ligation History of tonsillectomy History of appendectomy History of Problems with Anesthesia: No Social History Social History Household Members: None Housing: House Alcohol intake: never Patient Tobacco Use Status: Never used Tobacco e-Cigarette/Vaping Use: Never Used Second Hand Smoke Exposure: No Advance Directives: No Advance Directives Information Provided: Yes service: No Current occupational status: employed Current occupation: [id number] Sexual orientation: Straight/Heterosexual Gender identity: Female Cognitive needs: No Hearing needs: No Vision needs: No Meds Allergies Allergy/AdvReac Type Severity Reaction Status Date / Time No Known Allergies Allergy Verified 12/08/24 10:23 Home Medications ?Medication ?Instructions ?Recorded ?Confirmed ?Last Taken ?Type calcipotriene 0.005 % scalp topical 12/08/24 12/31/24 Unknown History solution tapinarof 1 % topical cream (Vtama) appl topical DAILY 12/08/24 12/31/24 Unknown History Exam Airway Mallampati Class: II TM Dist: >3cm Neck ROM: Full Heart: rrr Lungs: cta Assessment and Plan Assessment Anesthesia Assessment: Anesthesia Plan Discussed Final Anesthetic Review Family History of Problems with Anesthesia: No History of Problems with Anesthesia: No NPO: Yes ASA Class: II Final Preanesthetic Review: No Changes in Pt Med Stat, Meds/Allgs Chart Reviewed, Consent Obtained/Reviewed and Anes Risks/Benef Reviewed Patient Risk: Low Procedure Risk: Low Anesthetic Plan Anesthetic Plan: MAC: Disposition: Standard PACU
[2025-01-08] VITALS (11 sets, daily range): BP systolic 101–141; BP diastolic 55–81; PULSE 48–70; RESP 12–20; TEMP 36.1–36.6; O2SAT 97–100; BMI 32.3
--- NOTE | ~2025-01-08 | XR_ITS ---
EXAMINATION: XR CHEST CLINICAL INFORMATION: r/o perf COMPARISON: August 21, 2021 TECHNIQUE: Frontal view of the chest was obtained. FINDINGS: No consolidation, pleural effusion or pneumothorax. No hyperinflation. Cardiomediastinal silhouette size is normal. Mild multilevel thoracic spondylosis. Patient's large body habitus. No free air beneath the diaphragm. XR/XR chest 1V IMPRESSION: No acute airspace disease. Stable since prior exam. Electronically signed by: Parish Nieto MD 01/08/2025 11:20 AM EDT
--- NOTE | ~2025-01-08 | CT_ITS ---
EXAMINATION: CT ABDOMEN AND PELVIS WITHOUT CONTRAST CLINICAL INFORMATION: Pain following polyp removal in the cecum. DLP: 505 mGY*cm COMPARISON: Same day abdomen x-rays TECHNIQUE: Multidetector volumetric imaging was performed from the superior aspect of the liver through the pubic symphysis. Sagittal and coronal reformatted images were obtained on the technologist's workstation. This CT examination was performed using dose optimization techniques as appropriate, variously including the following: *Automated exposure control *Adjustment of mA and/or kV according to patient size (this includes techniques or standardized protocols for targeted exams where dose is matched to indication/reason for exam; i.e. extremities or head) *Use of iterative reconstruction technique FINDINGS: LUNG BASES: The visualized lung bases are unremarkable. LIVER, GALLBLADDER, AND BILIARY TREE: The liver is normal in size, shape, and attenuation. No focal hepatic lesion or biliary ductal dilatation is present. The gallbladder is unremarkable with no evidence of radiopaque gallstones, gallbladder wall thickening, or obvious pericholecystic inflammatory changes. PANCREAS: Unremarkable. SPLEEN: Unremarkable. ADRENAL GLANDS: Unremarkable. KIDNEYS AND URETERS: The kidneys are normal in size, shape, and attenuation. No hydronephrosis, hydroureter, or calculi seen. No perinephric stranding. BLADDER: Unremarkable. GASTROINTESTINAL TRACT: Metallic clips are present in the cecum near the terminal ileum. No extraluminal gas is evident. The appendix is not visualized. There is also a metallic clip in the region of the hepatic flexure. ABDOMINAL WALL: No significant hernia is appreciated. LYMPH NODES: Normal. VASCULAR: Unremarkable. PELVIC VISCERA: Unremarkable. OSSEOUS STRUCTURES: Moderate degenerative disc disease and facet arthropathy is present at L4-5. CT/CT abdomen pelvis wo IV con IMPRESSION: Metal clips seen in the cecum and in the region of the right flexure. No extraluminal gas is identified. No mesenteric inflammatory changes are seen. Fleischner guidelines were followed. Electronically signed by: Bharathi Doshi MD 01/08/2025 12:06 PM EDT
--- NOTE | ~2025-01-08 | XR_ITS ---
EXAMINATION: XR ABDOMEN WITH DECUBITUS VIEWS CLINICAL INDICATION: r/o perf COMPARISON: 03/22/2020 TECHNIQUE: AP and decubitus view of the abdomen FINDINGS: No intraperitoneal free air was demonstrated. 2 Metallic surgical devices project over the right pelvic area. Numerous pelvic calcifications consistent with phleboliths are stable. XR/XR abdomen w decubitus IMPRESSION: Unremarkable examination. Electronically signed by: Bharathi Doshi MD 01/08/2025 11:27 AM EDT
[2025-01-08] MEDS: Lactated Ringers 1,000 ML 100 ML IVCONT (08:43)
--- NOTE | 2025-01-08 08:52 | HO.ANESPROP2 ---
HPI - Anesthesia Eval Consult details Narrative: for colonoscopy PMFSH Active Problems Active Problems: All Active Problems ASCUS with positive high risk HPV cervical (Acute) Nocturnal leg cramps (Acute) Encounter for screening examination for sexually transmitted disease (Acute) Breast cancer screening (Acute) Well woman exam with routine gynecological exam (Acute) Dry skin dermatitis (Acute) Impaired fasting blood sugar (Acute) Muscle spasm (Acute) Urinary tract infection (Acute) Arthritis of right wrist (Acute) Osteoarthritis of left knee (Acute) Wrist pain, right (Acute) Knee pain, left (Acute) Colon cancer screening (Acute) Osteoarthritis of knees, bilateral (Acute) Constipation (Acute) ASCUS of cervix with negative high risk HPV (Acute) GERD (gastroesophageal reflux disease) (Acute) Low back pain (Acute) Bilateral wrist pain (Acute) Rhinitis medicamentosa (Acute) Annual physical exam (Acute) Epigastric pain (Acute) Sternal pain (Acute) Generalized anxiety disorder (Acute) Vitamin B12 deficiency (Acute) Vitamin D deficiency (Acute) DDD (degenerative disc disease), lumbar (Acute) Candidal intertrigo (Acute) Impaired glucose tolerance (Acute) Hypothyroid (Acute) Osteoarthritis (Acute) Obesity (BMI 30-39.9) (Acute) GERD (gastroesophageal reflux disease) (Acute) Past Medical History Medical History Encounter for screening examination for sexually transmitted disease Colon cancer screening Knee pain, bilateral Women's annual routine gynecological examination Cervical cancer screening ASCUS of cervix with negative high risk HPV Contracture of finger joint Carpal tunnel syndrome of right wrist Hypothyroid Osteoarthritis Obesity (BMI 30-39.9) Thyroid nodule Vitamin D deficiency ASCUS (atypical squamous cells of undetermined significance) on gynecologic Papanicolaou smear complicating , antepartum Vitamin B12 deficiency GERD (gastroesophageal reflux disease) Asthma Anemia Family History Family History Father Alcohol abuse Mother Diabetes Hypertension Heart problem Brother Alive and well Brother History of open heart surgery Family history of problems with anesthesia: No Surgical History Surgical History History of tubal ligation History of tonsillectomy History of appendectomy History of Problems with Anesthesia: No Social History Social History Household Members: None Housing: House Are you a primary care management coordinator to a significant other at home: No Do you presently have visiting nurse or other home services: No Alcohol intake: never Patient Tobacco Use Status: Never used Tobacco e-Cigarette/Vaping Use: Never Used Second Hand Smoke Exposure: No Use of substances other than those prescribed or required for medical reasons: No Have you been hit, kicked, punched, or otherwise hurt by someone within the past year? If so, by whom?: No Are you DNR?: No Advance Directives: No Advance Directives Information Provided: Yes Poor oral hygiene: No service: No Current occupational status: employed Current occupation: [employer] Sexual orientation: Straight/Heterosexual Gender identity: Female Cognitive needs: No Hearing needs: No Vision needs: No Meds Allergies Allergy/AdvReac Type Severity Reaction Status Date / Time morphine AdvReac Vomiting Verified 01/08/25 08:22 Active Medications: Current Medications Albuterol Sulfate (Albuterol Sulfate (0.083%) 2.5 Mg/3 Ml Vial.Neb) 2.5 mg INHALE ONCE PRN PRN Reason: Shortness of Breath/Wheezing Lactated Ringer's (Lr) 1,000 mls @ 100 mls/hr IVCONT .Q10H BAYLEE Last Admin: 01/08/25 08:43 Dose: 100 mls/hr Naloxone HCl (Naloxone Hcl 0.4 Mg/Ml Vial) 0.04 mg IVPUSH Q5M PRN PRN Reason: Excessive sedation or RR < 8 Home Medications ?Medication ?Instructions ?Recorded ?Confirmed ?Last Taken ?Type calcipotriene 0.005 % scalp topical 12/08/24 12/31/24 Unknown History solution tapinarof 1 % topical cream (Vtama) appl topical DAILY 12/08/24 12/31/24 Unknown History Exam Height,Weight and Vital Signs: Height 5 ft Weight 75 kg Last Vital Signs Temp 97.8 F 01/08/25 08:27 Pulse 67 01/08/25 08:27 Resp 12 01/08/25 08:27 BP 120/70 01/08/25 08:27 Pulse Ox 97 01/08/25 08:27 O2 Del Method Room Air 01/08/25 08:27 Airway Mallampati Class: II TM Dist: <=3cm Neck ROM: Full Loose/Missing/Broken Teeth: No Heart: ok Lungs: ok Assessment and Plan Assessment Anesthesia Assessment: Anesthesia Plan Discussed and Chart Reviewed Final Anesthetic Review Family History of Problems with Anesthesia: No History of Problems with Anesthesia: No NPO: Yes ASA Class: II Final Preanesthetic Review: No Changes in Pt Med Stat, Meds/Allgs Chart Reviewed, Consent Obtained/Reviewed and Anes Risks/Benef Reviewed Patient Risk: Intermediate Procedure Risk: Low Anesthetic Plan Anesthetic Plan: MAC: and Agree w/ Assess. and Plan Disposition: Standard PACU
--- NOTE | 2025-01-08 09:05 | P.HPSUR_ITS ---
Pre-Procedural Eval Section A - 24 Hr Update-Section A only Date of Service: 01/08/25 Section B - Complete if H&P > 30 days Chief Complaint: Encounter for screening for malignant neoplasm of Relevant Family History (Specify if Yes): No Relevant Social History: None Present Medications: see Short Stay Collaborative assessment Medical History: Significant History (Knee pain, bilateral Women's annual rout ine gynecological examination Cervical cancer screening ASCUS of cervix with negative high risk HPV Contracture of finger joint Carpal tunnel syndrome of right wrist Hypothyroid Osteoarthritis Obesity (BMI 30-39.9) Thyroid nodule Vitamin D deficiency ASCUS (at) History of Previous Operations: Relevant previous surgery/procedure and date(s) (History of tubal ligation History of tonsillectomy History of appendectomy) Allergies: Allergies Allergy/AdvReac Type Severity Reaction Status Date / Time morphine AdvReac Vomiting Verified 01/08/25 08:22 Review of Systems Sugical H&P ROS: Negative: Constitution, Cardiovascular, Respiratory, Neurological, Psychiatric, Hem-Onc, Allergic/Immunologic, Gastrointestinal, Genitourinary, Musculoskeletal, Integumentary, Endocrine and Eyes/Ears/Nose/Throat Exam Surgical H&P Exam: Normal: HEENT, Normal: Heart, Normal: Lungs, Normal: Extremities, Normal: Abdomen, Normal: Skin and Normal: Neurological Plan Diagnosis/Plan: Unchanged I have reviewed the history and physical and performed a pertinent physical examination on my patient. No changes have occurred unless specified. Time Spent With Patient Time: Total time managing care of this patient today ____ minutes.
--- NOTE | 2025-01-08 09:58 | HO.OPN-COLON ---
Colonoscopy Operative Note Operative Note Date of Service: 01/08/25 Narrative: Operative Information Procedure Description: Colonoscopy Indication: screening Anesthesia: MAC COLONOSCOPY Instrument: Olympus variable stiffness pediatric scope 190L Colonoscopy Monitoring: Vital signs and clinical assessment, continuous EKG monitoring, Pulse oximetry, Carbon Dioxide monitoring and blood pressure monitoring were done throughout the procedure. Colon withdrawal time was 20 minutes. Procedure: The patient was placed in the left lateral decubitis position and pre-procedure medications were administered. After a digital rectal examination of the ano-rectum, the video colonoscope was inserted into the rectum and advanced through the colon to the cecum/TI. The colonoscope was slowly withdrawn in a retrograde panoramic fashion and the colon mucosa was carefully examined including a retroflexed view of the rectum. Findings and interventions are described below. Procedure Difficulty: moderate Findings: Terminal Ileum-normal Cecum: 10-12 mm sessile polyp lifted with eleview and then removed with cold snare with 2 clips applied for hemostasis./ Ascending Colon: normal Transverse Colon -normal Descending Colon:normal Sigmoid Colon: Proximal colon--x3 sessile polyps 4-7 mm removed with cold forceps, x 1 sessile polyp 8 mm removed with cold snare. x 1 sessile polyp 13-15 mm, injected with epinephrine and then removed with cold snare with x 1 clip applied for hemostasis. Moderate diverticulosis also seen with patchy mild erythema. Rectum: Retroflexion with small internal hemorrhoids seen, grade I Anorectum - normal Intervention: cold forceps, cold snare and eleview injection, epinephrine injections Colon preparation: Sevier Bowel Preparation Scale Right colon; 2 Transverse colon: 2 Left colon; 2 (0 = Unprepared colon segment with mucosa not seen due to solid stool that cannot be cleared. 1 = Portion of mucosa of the colon segment seen, but other areas of the colon segment not well seen due to staining, residual stool and/or opaque liquid. 2 = Minor amount of residual staining, small fragments of stool and/or opaque liquid, but mucosa of colon segment seen well. 3 = Entire mucosa of colon segment seen well with no residual staining, small fragments of stool or opaque liquid) Impression and Post Procedure Diagnosis: diverticulosis colon polyps x 6 internal hemorrhoids Plan: High fiber diet leaflet Avoid straining at stool, epsom salts and sitz bath, anusol supps or cream Repeat Colonoscopy in 6-12 months or earlier if clinically indicated Above findings were reviewed with the patient and relevant handouts were provided if indicated.
[2025-01-08] MEDS: Acetaminophen 1,000 MG/100 ML PIGGYBACK 400 MG IV (12:11)
[2025-01-08] MEDS: Amoxicillin/Potassium Clav 875 MG TABLET PO (12:38)
== END 2025-01-08 13:23 | disposition home or self-care (01) ==
PROVIDERS: PCP Internal Medicine; Visit Provider Internal Medicine Gastroenterology
PROC: 0DJD8ZZ Inspection of Lower Intestinal Tract, Via Natural or Artificial Opening Endoscopic (ICD-10-PCS; CPT 45378; principal; 2025-01-08 09:00)
DX: Z12.11 Encounter for screening for malignant neoplasm of colon (principal); D12.0 Benign neoplasm of cecum; D12.5 Benign neoplasm of sigmoid colon; K57.30 Diverticulosis of large intestine without perforation or abscess without bleeding; K64.0 First degree hemorrhoids; R10.9 Unspecified abdominal pain; E03.9 Hypothyroidism, unspecified; K21.9 Gastro-esophageal reflux disease without esophagitis; J45.909 Unspecified asthma, uncomplicated; D64.9 Anemia, unspecified; F41.1 Generalized anxiety disorder; Z79.899 Other long term (current) drug therapy
CPT/HCPCS: 45385; 45380; 45381; 71045; 74021; 74176; 88305; 99396; J0131; J0171; J2003; J2704

== ENCOUNTER → 2025-01-08 07:45 | Outpatient (BNV) | payer OTHER, SELFPAY | PROVIDERS: PCP Internal Medicine; Visit Provider Internal Medicine Gastroenterology | DX: Z12.11 Encounter for screening for malignant neoplasm of colon (principal); D12.0 Benign neoplasm of cecum; D12.5 Benign neoplasm of sigmoid colon; K57.30 Diverticulosis of large intestine without perforation or abscess without bleeding; K64.0 First degree hemorrhoids | CPT/HCPCS: 45381; 45385 ==

== ENCOUNTER → 2025-01-08 10:48 | Outpatient (BNV) | payer OTHER, SELFPAY | PROVIDERS: PCP Internal Medicine; Visit Provider Radiology Diagnostic Radiology | DX: R10.9 Unspecified abdominal pain (principal); Z00.00 Encounter for general adult medical examination without abnormal findings | CPT/HCPCS: 71045 ==

== ENCOUNTER 2025-01-08 14:39 | Outpatient (AMB) | payer OTHER, SELFPAY ==
--- OUTSIDE RECORDS SUMMARY | 2025-01-08 14:42 | XMS_ITS | Clinical Summary ---
Author Organization [facility] [place] [address] Care Team Providers Care Estimating Manager Name Role Phone Unavailable Primary Care Provider [...]
[2025-01-08 14:49] VITALS: BP 108/56; PULSE 93; O2SAT 98; BMI 32.6
--- NOTE | 2025-01-08 14:49 | A.OFFPC_ITS ---
Vital Signs 01/08/25 14:49 01/08/25 15:31 Height 5 ft Weight 167 lb BMI 32.6 BP 108/56 L 120/60 Blood Pressure Location Lt brachial Lt brachial Position Sitting Sitting Pulse 93 Pulse Source Pulse Oximeter Pulse Oximetry (%) 98 Oxygen Delivery Method Room Air Intake Visit Reasons: Annual exam Medical Office Secretary Required: No Accompanied by: Self / Same As Patient Allergies morphine Adverse Reaction (Verified 01/08/25 14:50) Vomiting Medication List - Last Reconciled 01/08/25 by Sherrie Gibson MD amoxicillin-pot clavulanate 500-125 mg (Augmentin) 1 tab PO Q8H 5 days bisacodyl 10 mg (2 x 5 mg) PO DAILY calcipotriene 0.005% topical cholecalciferol (vitamin D3) 50 mcg PO DAILY 90 days cyanocobalamin (vitamin B-12) 1,000 mcg PO DAILY 90 days levothyroxine 100 mcg PO DAILY meloxicam 7.5 mg PO DAILY omeprazole 20 mg PO DAILY polyethylene glycol 3350 (Miralax) 238 grams PO ONCE polyethylene glycol 3350 (Miralax) 238 grams PO .QD 90 days psyllium husk (Fiber (psyllium husk)) 1.04 grams (2 x 0.52 gram) PO DAILY PRN tapinarof 1% (Vtama) appl topical DAILY Tobacco use date assessed: 01/08/25 Dental Screening Dental Screen Date: 01/08/25 Did you have a dental visit in the last 12 months?: No Did you have a dental problem in the last 6 months where you did not have access to dental care?: No Was dental information given to patient?: No HPI Annual exam HPI Details mild dizzy gerd PFSH Medical History Encounter for screening examination for sexually transmitted disease Colon cancer screening Knee pain, bilateral Women's annual routine gynecological examination Cervical cancer screening ASCUS of cervix with negative high risk HPV Contracture of finger joint Carpal tunnel syndrome of right wrist Hypothyroid Osteoarthritis Obesity (BMI 30-39.9) Thyroid nodule Vitamin D deficiency ASCUS (atypical squamous cells of undetermined significance) on gynecologic Papanicolaou smear complicating , antepartum Vitamin B12 deficiency GERD (gastroesophageal reflux disease) Asthma Anemia Surgical History History of tubal ligation History of tonsillectomy History of appendectomy Family History Father Alcohol abuse Mother Diabetes Hypertension Heart problem Brother Alive and well Brother History of open heart surgery Social History Household Members: None Housing: House Are you a primary child day care center worker to a significant other at home: No Do you presently have visiting nurse or other home services: No Alcohol intake: never Patient Tobacco Use Status: Never used Tobacco e-Cigarette/Vaping Use: Never Used Second Hand Smoke Exposure: No service: No Current occupational status: employed Current occupation: [employer] Sexual orientation: Straight/Heterosexual Gender identity: Female Cognitive needs: No Hearing needs: No Vision needs: No Female Reproductive History Menstrual Age of Menarche: 10 Questionnaire PHQ-9 Over the last 2 weeks, how often have you been bothered by any of the following problems? 1. Little interest or pleasure in doing things: not at all 2. Feeling down, depressed, or hopeless: not at all 3. Trouble falling or staying asleep, or sleeping too much: not at all 4. Feeling tired or having little energy: not at all 5. Poor appetite or overeating: not at all 6. Feeling bad about yourself - or that you are a failure or have let yourself or your family down: not at all 7. Trouble concentrating on things, such as reading the newspaper or watching television: not at all 8. Moving or speaking so slowly that other people could have noticed. Or the opposite - being so fidgety or restless that you have been moving around a lot more than usual: not at all 9. Thoughts that you would be better off or of hurting yourself in some way: not at all Total score: 0 Source: Developed by Drs. Mason Guillen, Marita Buenrostro, Ryley Durand and colleagues, with an educational elian from [employer]. Thrive Questionnaire Date Thrive assessed: 01/08/25 I am a: Patient What is your living situation today?: I have a steady place to live Within the past 12 months, did the food you bought not last and you didn't have the money to get more?: I choose not to answer this question Within the past 12 months, did you worry whether your food would run out before you got money to buy more?: I choose not to answer this question Do you have trouble paying for medicines?: No Do you have trouble getting transportation to medical appointments?: No Do you have trouble paying your heating and electricity bill?: I choose not to answer this question Do you have trouble taking care of your child, family member or friend?: I choose not to answer this question Do you have trouble with day-to-day activities such as bathing, preparing meals, shopping, managing finances, etc.?: I choose not to answer this question Are you currently unemployed and looking for a job?: I choose not to answer this question Are you interested in more education?: I choose not to answer this question Please select the resources that you would like help with: None Currently or been in a relationship where the following occur: I choose not to answer THRIVE Score: 0 AUDIT C Alcohol Use Questionnaire (AUDIT-C) 1. How often do you have a drink containing alcohol?: Never 3. How often do you have six or more drinks on one occasion?: Never Total Score: 0 FANTASMA-7 AMB Questionnaire FANTASMA-7 Date FANTASMA - 7 assessed: 01/08/25 Feeling nervous, anxious, or on edge: 0 = Not at all Not being able to stop or control worryin = Not at all Worrying too much about different things: 0 = Not at all Trouble relaxin = Not at all Being so restless that it is hard to sit still: 0 = Not at all Becoming easily annoyed or irritable: 0 = Not at all Feeling afraid as if something awful might happen: 0 = Not at all Total FANTASMA-7 score (0-4 normal; 5-9 mild; 10-14 moderate; 15-21 severe): 0 Source: Developed by Drs. Mason Guillen, Marita Buenrostro, Ryley Durand and colleagues, with an educational elian from [employer]. Review of Systems Const Denies poor appetite and Denies weakness Eyes Denies no additional complaints ENT Reports Normal hearing present, Denies dizziness, Denies nasal congestion, Denies tinnitus and Denies sore throat Card Denies chest pain, Denies syncope, Denies rapid heart rate and Denies dyspnea Resp Denies cough and Denies dyspnea GI Denies change in stool character, Reports constipation, Denies diarrhea, Denies nausea and Denies vomiting Denies urinary frequency, Denies difficulty voiding and Denies dysuria Neuro Reports Normal hearing present, Denies confusion, Denies dizziness, Denies syncope and Denies weakness Psych Denies confusion Physical exam (Primary Care) Vital Signs: Last Vital Signs Pulse 93 01/08/25 14:49 BP 120/60 01/08/25 15:31 Pulse Ox 98 01/08/25 14:49 Oxygen Delivery Method Room Air 01/08/25 14:49 BMI result Body Mass Index 32.6 Tobacco/Smoking Status: Tobacco use Status Tobacco use date assessed 01/08/25 01/08/25 14:55 Patient Tobacco Use Status Never used Tobacco 01/08/25 14:55 e-Cigarette/Vaping Use Never Used 01/08/25 14:55 PHQ-9: PHQ-9 Score PHQ-9: Total score 0 01/08/25 15:30 Thrive Assessment: Date of Thrive Assessment Date Thrive assessed 01/08/25 01/08/25 14:55 Currently or been in a relationship where the following occur: I choose not to answer Const General: alert and awake; No confusion Orientation/consciousness: No confusion HENSD Head: Yes normocephalic Ears: external ears normal and TM's normal bilaterally Face and sinus: Yes normal facial exam Mouth: moist mucous membranes Throat: Yes tonsils normal Eyes Conjunctivae: conjunctivae normal Pupils: Equal, round and reactive pupils present and Pupil accommodation reflex normal Direct Ophthalmoscopy: normal light reflex Neck Neck: No lymphadenopathy Thyroid: Thyroid normal Chest Chest palpation & inspection: normal inspection of the chest Resp Effort & Inspection: normal respiratory effort and no audible wheezes Auscultation: clear to auscultation bilaterally, no crackles, no wheezes and lung sounds not diminished Cardio Rate: regular rate Rhythm: regular rhythm Peripheral pulses: radial pulses present and dorsalis pedis present GI Palpation (GI): no masses Auscultation: normal bowel sounds and normoactive bowel sounds Rectal Exam - Female: deferred Skin General skin exam: no rashes or lesions noted Rashes: no rashes Neuro General: deep tendon reflexes 2+ bilaterally and No confusion Cranial nerves: Yes Equal, round and reactive pupils present, Yes Midline tongue present, Yes Normal hearing present and Yes Ability to bilaterally elevate shoulders present Cognition (Neuro): normal cognition Gait exam (Neuro): Normal gait present Motor exam (neuro): 5/5 motor strength present throughout Deep tendon reflexes (DTR's): Right brachioradialis reflex intensity grade: 2+, Left brachioradialis reflex intensity grade: 2+, Right patellar reflex intensity grade: 2+ and Left patellar reflex intensity grade: 2+ Extrem General: No edema Coding Level of Care Code Est Pt Prev Care 40-64y(60863) Diagnoses Annual physical exam Z00.00 Impaired glucose tolerance R73.02 Acquired hypothyroidism E03.9 Hypothyroidism type: acquired Gastroesophageal reflux disease without esophagitis K21.9 Esophagitis presence: without esophagitis Generalized anxiety disorder F41.1 Constipation K59.00 Assessment & Plan Assessment & Plan (1) Annual physical exam: Code(s): Z00.00 - Encounter for general adult medical examination without abnormal findings Category: Medical Plan: Patient is advised to eat healthy, keep well hydrated, keep active and have adequate sleep. (2) Impaired glucose tolerance: Code(s): R73.02 - Impaired glucose tolerance (oral) Category: Medical Plan: Decrease the amount of carbohydrate intake, pasta, bread, rice and potatoes are all sugar and that is aside from all the sweet stuff, remember that fruits are good but they are Sweet also. (3) Hypothyroid: Code(s): E03.9 - Hypothyroidism, unspecified Category: Medical Qualifiers: Hypothyroidism type: acquired Qualified Code(s): E03.9 - Hypothyroidism, unspecified Plan: Continue with thyroid medication (4) GERD (gastroesophageal reflux disease): Code(s): K21.9 - Gastro-esophageal reflux disease without esophagitis Category: Medical Qualifiers: Esophagitis presence: without esophagitis Qualified Code(s): K21.9 - Gastro-esophageal reflux disease without esophagitis Plan: Avoid the foods that causes that usually spicy foods, tomato products, juices, coffee, soda and foods that your sensitive to. After eating do not lie down, allow 3-4 hours before in lie down. And keep the head of bed above 30 degrees to avoid the acid from going up. (5) Generalized anxiety disorder: Code(s): F41.1 - Generalized anxiety disorder Category: Medical Plan: Continue with present treatment (6) Constipation: Code(s): K59.00 - Constipation, unspecified Category: Medical Plan History of Present Illness The patient is a 59-year-old female presenting for a physical examination and management of chronic conditions. She has a history of Gastroesophageal Reflux Disease (GERD), which is currently managed with omeprazole, providing relief from frequent heartburn. Her hypothyroidism is controlled with a daily dose of 100 mcg of thyroid medication. The patient also has a diagnosis of lichen sclerosus, for which she uses a scalp solution that has been effective. She experiences generalized anxiety disorder, which is part of her chronic condition management. In December 2024, a colonoscopy revealed colon polyps, necessitating a follow-up colonoscopy in 6 to 12 months. Her last blood work in October 2024 showed normal blood count, electrolytes, renal function, and liver function, with an LDL of 93 mg/dL and a Hemoglobin A1c of 6.1%. The patient is obese, with a current weight of 165 pounds, slightly reduced from a previous weight of 167 pounds. She maintains a healthy hydration level, consuming four to five bottles of water daily. Health Maintenance - Colonoscopy performed in December 2024 with follow-up recommended in 6 to 12 months - Blood work in October 2024 showed normal results with LDL at 93 mg/dL and Hemoglobin A1c at 6.1% - Patient received a second vaccine shot two weeks ago Social History - Family history includes mother's heart problems and brother's open heart surgery - Patient does not consume alcohol and maintains adequate hydration Review of Systems - Cardiovascular: Denies chest pain, reports low blood pressure during visit - Gastrointestinal: Reports frequent heartburn, managed with omeprazole - Neurological: Denies dizziness, syncope, or headaches - Respiratory: Denies dyspnea or cough - General: Reports feeling tired, denies fever Physical Exam General: Cooperative, healthy appearing, comfortable, no acute distress and well developed Orientation: Patient oriented x3 Limitations: No limitations Head: Normal to inspection Ears: Hearing grossly normal bilaterally Nose: Normal external nose present Face and sinus: Normal facial exam Eyes: Appearance normal, both eyes and all related structures Neck: Normal visual inspection and Yes full ROM Respiratory: Normal respiratory effort and able to speak in complete sentences. Clear to auscultation bilaterally Cardiovascular: Regular rate and rhythm. Normal S1 and S2 GI: Normal to inspection. Soft to palpation and nontender Skin: No rashes or lesions noted Neuro: Patient oriented x3 Extremities: Normal to inspection Results - Labs: Blood work in October 2024 showed normal blood count, electrolytes, renal function, liver function, LDL at 93 mg/dL, and Hemoglobin A1c at 6.1% - Tests: Colonoscopy in December 2024 revealed colon polyps Plan The management plan includes continuing current medications for GERD and hypothyroidism, with omeprazole and thyroid medication respectively. The patient is advised to follow up with a repeat colonoscopy in 6 to 12 months due to the presence of colon polyps. Regular monitoring of blood pressure is recommended due to the low reading observed during the visit. The patient should maintain her current hydration level and continue with her current lifestyle modifications to manage obesity. Patient was informed and verbally consented to the use of an ambient scribe for clinic note documentation during this visit. Discussion Notes During the visit, we discussed the importance of continuing current medications for GERD and hypothyroidism. I advised the patient to schedule a follow-up colonoscopy in 6 to 12 months due to the detection of colon polyps. We also talked about the need for regular blood pressure monitoring and maintaining hydration levels. The patient was informed about the significance of lifestyle modifications in managing obesity. Patient Instructions - Continue taking omeprazole for GERD and thyroid medication as prescribed. - Schedule a follow-up colonoscopy in 6 to 12 months. - Monitor blood pressure regularly. - Maintain current hydration level and lifestyle modifications to manage weight.
[2025-01-08 15:31] VITALS: BP 120/60
== END 2025-01-08 15:43 | disposition home or self-care (01) ==
LOC: HO.HMCH 14:40
PROVIDERS: PCP Internal Medicine; Visit Provider Internal Medicine
DX: Z00.00 Encounter for general adult medical examination without abnormal findings (principal); R73.02 Impaired glucose tolerance (oral); E03.9 Hypothyroidism, unspecified; K21.9 Gastro-esophageal reflux disease without esophagitis; F41.1 Generalized anxiety disorder; K59.00 Constipation, unspecified

== ENCOUNTER 2025-02-24 08:40 | Outpatient (AMB) | payer OTHER, SELFPAY ==
--- NOTE | 2025-02-24 08:46 | A.OFFVIS_ITS ---
Vital Signs 02/24/25 08:48 Height 5 ft Weight 167 lb BMI 32.6 Intake Visit Reasons: colpo results Optical Design Engineer Required: No Information Interpreted: non-clinical & clinical Accompanied by: Self / Same As Patient Allergies morphine Adverse Reaction (Verified 02/24/25 08:48) Vomiting HPI Comments Details: Presenting post colpo for follow-up. The patient is doing well with no complaints. The pathology showed the following: A. Endocervix, curettage: Fragments of benign endocervical and squamous mucosa; negative for squamous intraepithelial lesion. B. Cervix, 5 o'clock, biopsy: Squamous mucosa within normal limits; no endocervical component seen; negative for squamous intraepithelial lesion. C. Cervix, 6 o'clock, biopsy: Squamous mucosa within normal limits; no endocervical component seen; negative for squamous intraepithelial lesion. D. Cervix, 7 o'clock, biopsy: Squamous mucosa within normal limits; no endocervical component seen; negative for squamous intraepithelial lesion. COMMENT: The atypical cells noted on the patient's recent Pap smear ([id number]; ASCUS; HPV+) are not seen in the current biopsy findings [facility] Medical History Encounter for screening examination for sexually transmitted disease Colon cancer screening Knee pain, bilateral Women's annual routine gynecological examination Cervical cancer screening ASCUS of cervix with negative high risk HPV Contracture of finger joint Carpal tunnel syndrome of right wrist Hypothyroid Osteoarthritis Obesity (BMI 30-39.9) Thyroid nodule Vitamin D deficiency ASCUS (atypical squamous cells of undetermined significance) on gynecologic Papanicolaou smear complicating , antepartum Vitamin B12 deficiency GERD (gastroesophageal reflux disease) Asthma Anemia Surgical History History of tubal ligation History of tonsillectomy History of appendectomy Family History Father Alcohol abuse Mother Diabetes Hypertension Heart problem Brother Alive and well Brother History of open heart surgery Social History Household Members: None Housing: House Are you a primary patient care assistant to a significant other at home: No Do you presently have visiting nurse or other home services: No Alcohol intake: never Patient Tobacco Use Status: Never used Tobacco e-Cigarette/Vaping Use: Never Used Second Hand Smoke Exposure: No service: No Current occupational status: employed Current occupation: [employer] Sexual orientation: Straight/Heterosexual Gender identity: Female Cognitive needs: No Hearing needs: No Vision needs: No Female Reproductive History Menstrual Age of Menarche: 10 Review of Systems Const All systems reviewed & are unremarkable except as noted in HPI and below Reports as per HPI and Reports no additional complaints GI Reports no additional complaints Reports no additional complaints Physical Exam Vital Signs: BMI result Body Mass Index 32.6 Assessment & Plan Assessment & Plan (1) ASCUS with positive high risk HPV cervical: Code(s): R87.610 - Atypical squamous cells of undetermined significance on cytologic smear of cervix (ASC-US); R87.810 - Cervical high risk human papillomavirus (HPV) DNA test positive Category: Medical Plan: Discussed with the patient the pathology results of the colposcopy biopsies & endocervical curettage. Discussed with the patient the sensitivity specificity, positive and negative predictive value in detecting cervical cancer in addition discussed the regression, persistence and progression rates. Recommended co- testing in 12 months, if cytology and or HPV are abnormal will proceed was colposcopy biopsy and endocervical curettage. Instructions given to the patient to schedule a co test appointment in 1 year. All questions answered the patient verbalized understanding. Coding Level of Care Code Est Pt Level 3 (49261) Diagnoses ASCUS with positive high risk HPV cervical R87.610; R87.810
[2025-02-24 08:48] VITALS: BMI 32.6
--- OUTSIDE RECORDS SUMMARY | 2025-02-24 08:53 | XMS_ITS | Clinical Summary ---
Author Organization [facility] [place] [address] Care Team Providers Care Chief Cruiser Name Role Phone Unavailable Primary Care Provider [...] Vaccine ( - 2023-2 5 season) 2024 Colorectal Cancer Screening: Colonoscopy 04/28/2024 HIV Screening 04/28/2024 Hepatitis C Screening 04/28/2024 Social Influencers of Health Screening 04/28/2024 Depression Screening 07/22/2024 Influenza Vaccine (#1) 2025 RSV Immunization Adult Patie nts (1 [...]
== END 2025-02-24 09:19 | disposition home or self-care (01) ==
LOC: HO.HWS 08:41
PROVIDERS: PCP Internal Medicine; Visit Provider Obstetrics & Gynecology
DX: R87.610 Atypical squamous cells of undetermined significance on cytologic smear of cervix (ASC-US) (principal); R87.810 Cervical high risk human papillomavirus (HPV) DNA test positive
CPT/HCPCS: 99213

== ENCOUNTER → 2025-02-24 08:40 | Outpatient (BNVA) | payer OTHER, SELFPAY | PROVIDERS: PCP Internal Medicine; Visit Provider Obstetrics & Gynecology | DX: R87.610 Atypical squamous cells of undetermined significance on cytologic smear of cervix (ASC-US) (principal); R87.810 Cervical high risk human papillomavirus (HPV) DNA test positive | CPT/HCPCS: 99212 ==

== ENCOUNTER 2025-03-15 15:07 | Outpatient (REF) | payer OTHER, SELFPAY ==
--- OUTSIDE RECORDS SUMMARY | 2025-03-15 16:48 | XMS_ITS | Clinical Summary ---
Author Organization [facility] [place] [address] Care Team Providers Care Roofer Apprentice Name Role Phone Unavailable Primary Care Provider [...]
== END 2025-03-15 15:08 | disposition home or self-care (01) ==
LOC: HO.MAMMO 15:07
PROVIDERS: PCP Internal Medicine; Visit Provider Internal Medicine
DX: Z12.31 Encounter for screening mammogram for malignant neoplasm of breast (principal)
CPT/HCPCS: 77063; 77067

== ENCOUNTER → 2025-03-15 15:15 | Outpatient (BNV) | payer OTHER, SELFPAY | PROVIDERS: PCP Internal Medicine; Visit Provider Radiology Body Imaging | DX: Z12.31 Encounter for screening mammogram for malignant neoplasm of breast (principal) | CPT/HCPCS: 77063; 77067 ==